=== PATIENT | female | born 1945 | race Caucasian/White ===

== ENCOUNTER 2016-09-16 12:50 | Inpatient (IN) | payer MEDICARE, MEDICAID ==
[~2016-09-16] VITALS: Ht 162.6 cm; Wt 86.6 kg
[~2016-09-16 12:50] MED LIST: DIVA500T2 PO; DOCU-170 PO; FOLI1TAB16 PO; LORA1TAB PO; MAGN400O6 PO; MULT-24 PO; NA P133E RC; OLAN10TA3 PO; PANT40TA4 PO; RAME8TAB9 PO; TYL2T PO
[2016-09-16 13:32] LABS: BASOPHILS % (AUTO) 0.4 % (0.0-2.0); EOSINOPHILS # (AUTO) 0.4 /CMM (0.0-0.7); EOSINOPHILS % (AUTO) 5.5 % (0.0-6.0); HEMATOCRIT 26 % (33-45); LYMPHOCYTES # (AUTO) 1.1 /CMM (0.8-4.8); LYMPHOCYTES % (AUTO) 16.8 % (20.0-44.0); MEAN CORPUSCULAR HEMOGLOBIN 23 PG (26.0-33.0); MEAN CORPUSCULAR HGB CONC 30 g/dl (31.0-36.0); MEAN CORPUSCULAR VOLUME 75 fL (82-100); MONOCYTES # (AUTO) 0.8 /CMM (0.1-1.30); MONOCYTES % (AUTO) 12.7 % (2.0-12.0); NEUTROPHILS # (AUTO) 4.2 /CMM (1.8-8.9); NEUTROPHILS % (AUTO) 64.6 % (43.0-81.0); PLATELET COUNT (AUTO) 373 /CMM (150-450); RDW COEFFICIENT OF VARIATION 16.4 (11.5-15.0); RED BLOOD CELL COUNT(AUTO) 3.51 MIL/uL (4.0-5.2); WHITE BLOOD COUNT (AUTO) 6.5 K/uL (4.3-11.0)
[2016-09-16 13:39] LABS: CARBON DIOXIDE 28 mmol/L (21-32); CHLORIDE 105 mmol/L (98-107); GFR 55 mL/min (>60); GLUCOSE 113 mg/dL (74-106); POTASSIUM 4.3 mmol/L (3.5-5.1); SODIUM SERUM 140 mmol/L (136-145); UREA NITROGEN, BLOOD 15 mg/dL (7-18)
[2016-09-16 13:52] LABS: ACETAMINOPHEN 0 ug/ml (10-30); ALANINE AMINOTRANSFERASE 11 U/L (12-78); ALBUMIN 2.6 g/dL (3.4-5.0); ALCOHOL, BLOOD < 3 mg/dL (0-0); ALKALINE PHOSPHATASE 84 U/L (46-116); ASPARTATE AMINOTRANSFERASE 11 U/L (15-37); BILIRUBIN,TOTAL 0.1 mg/dL (0.2-1.0); SALICYLATE 1.3 mg/dL (2.8-20.0); TOTAL PROTEIN, SERUM 6.9 g/dL (6.4-8.2)
[2016-09-16] MEDS ORDERED: CALC-883 PO (14:16)
[2016-09-16] MEDS ORDERED: METO25TA6 PO (14:16)
[2016-09-16] MEDS ORDERED: CLON0.5T PO (14:16)
[2016-09-16] MEDS ORDERED: MULT-213 PO (14:16)
[2016-09-16] MEDS ORDERED: AMIN30LI2 PO (14:16)
[2016-09-16] MEDS ORDERED: MELA3TAB PO (14:16)
[2016-09-16 15:33] LABS: APPEARANCE,URINE Slightly Cloudy (CLEAR); BILIRUBIN,URINE Negative (NEGATIVE); BLOOD, URINE Moderate Ery/uL (NEGATIVE); COLOR,URINE Yellow (YELLOW); KETONES,URINE Negative (NEGATIVE); LEUKOCYTE ESTERASE ,URINE Small (NEGATIVE); NITRITE, URINE Negative (NEGATIVE); PROTEIN,URINE Negative (NEGATIVE); UGLUCOSE Negative (NEGATIVE); UROBILINOGEN,URINE 0.2 EU/dL (0.2)
[2016-09-16 15:43] LABS: ADD URINE CULTURE NO; BACTERIA,URINE Few /HPF (None Seen); SQUAMOUS EPITHELIAL CELL,UR Few /HPF (None Seen)
[2016-09-16 15:50] LABS: CANNABINOID, URINE NEGATIVE (NEGATIVE); PHENCYCLIDINE SCREEN,URINE NEGATIVE (NEGATIVE)
[2016-09-16] MEDS ORDERED: ACETAMINOPHEN 325 MG TABLET PO PRN ×2 (16:30→17:30)
[2016-09-16 16:36] VITALS: BP 127/61
[2016-09-16] MEDS ORDERED: MAGNESIUM HYDROXIDE 30 ML UDC PO PRN (17:30)
[2016-09-16] MEDS ORDERED: TEMAZEPAM 7.5 MG CAPSULE PO PRN (17:30)
[2016-09-16] MEDS ORDERED: MAG HYDROX/AL HYDROX/SIMETH 30 ML UDC PO PRN (17:30)
[2016-09-16] MEDS ORDERED: LORAZEPAM 0.5 MG TABLET PO PRN (17:30)
[2016-09-16 20:00] VITALS: BP 126/61
[2016-09-16] MEDS: DOCUSATE SODIUM 100 MG CAPSULE PO SCH (20:38)
[2016-09-16] MEDS: METOPROLOL TARTRATE 25 MG TABLET PO SCH (20:39)
[2016-09-17 03:55] VITALS: BP 126/61
[2016-09-17] MEDS ORDERED: PANTOPRAZOLE 40 MG TABLET.DR PO SCH (07:30)
[2016-09-17 08:00] VITALS: BP 105/48
[2016-09-17] MEDS: METOPROLOL TARTRATE 25 MG TABLET PO SCH (08:00)
[2016-09-17] MEDS: DOCUSATE SODIUM 100 MG CAPSULE PO SCH (08:01)
[2016-09-17] MEDS ORDERED: CALCIUM CARB 600MG /VIT D 1 EACH TABLET PO SCH (09:00)
[2016-09-17] MEDS ORDERED: FOLIC ACID 1 MG TABLET PO SCH (09:00)
[2016-09-17] MEDS ORDERED: MULTIVITAMINS,THERAPEUTIC 1 UDTAB TABLET PO SCH (09:00)
[2016-09-17] MEDS ORDERED: LORA-258 PO (11:25)
[2016-09-17] MEDS ORDERED: TEMA7.5C PO (11:25)
== END 2016-09-17 10:27 | disposition short-term general hospital (02) | DRG 885 ==
LOC: ER 12:57 → GPS 15:24
PROVIDERS: ADMIT Psychiatry & Neurology Psychiatry
DX: F20.0 Paranoid schizophrenia (principal); K21.9 Gastro-esophageal reflux disease without esophagitis; F03.90 Unspecified dementia, unspecified severity, without behavioral disturbance, psychotic disturbance, mood disturbance, and anxiety; Z73.6 Limitation of activities due to disability; D50.9 Iron deficiency anemia, unspecified
CPT/HCPCS: 36415; 71010-TC; 80048-TC; 80076-TC; 80305; 81000-TC; 85025-TC; 86850-TC; 87081-TC; 88305-TC; 88313-TC; 88342; A4606; G0480; G6039-TC; J2704; J3490; Z7610

== ENCOUNTER 2016-09-17 10:34 | Inpatient (IN) | payer MEDICARE, MEDICAID ==
[~2016-09-17] VITALS: Ht 162.6 cm; Wt 86.6 kg
[~2016-09-17 10:34] MED LIST changes: +AMIN30LI2 PO; +CALC-883 PO; +CLON0.5T PO; -DIVA500T2 PO; -LORA1TAB PO; -MAGN400O6 PO; +MELA3TAB PO; +METO25TA6 PO; +MULT-213 PO; -MULT-24 PO; -NA P133E RC; -RAME8TAB9 PO
--- NOTE | 2016-09-17 11:10 | NUR ---
m/s bond broker: admission admitted this pt from gps unit with dx: anemia and pt schedule for egd this afternoon per report. pt awake, a/ox3, able to make needs known. pt has no family member and pt aware that she is having a procedure today as stated. pt has been npo since midnight per report. kept pt npo. oriented to room and surroundings. pt on 5150. on 1:1 sitter. pt is able ambulate without difficulty. awaiting order from dr. vanegas. will continue to monitor.
[2016-09-17 11:19] LABS: HEMATOCRIT 26 % (33-45); HEMOGLOBIN 7.8 g/dL (11.5-14.8); LYMPHOCYTES % (AUTO) 15.3 % (20.0-44.0); MEAN CORPUSCULAR HEMOGLOBIN 23 PG (26.0-33.0); MEAN CORPUSCULAR HGB CONC 30 g/dl (31.0-36.0); MEAN CORPUSCULAR VOLUME 76 fL (82-100); NEUTROPHILS % (AUTO) 69.4 % (43.0-81.0); PLATELET COUNT (AUTO) 352 /CMM (150-450); RDW COEFFICIENT OF VARIATION 17.4 (11.5-15.0); RED BLOOD CELL COUNT(AUTO) 3.37 MIL/uL (4.0-5.2); WHITE BLOOD COUNT (AUTO) 6.1 K/uL (4.3-11.0)
[2016-09-17 11:20] LABS: BASOPHILS % (AUTO) 0.5 % (0.0-2.0); EOSINOPHILS # (AUTO) 0.3 /CMM (0.0-0.7); LYMPHOCYTES # (AUTO) 0.9 /CMM (0.8-4.8); MONOCYTES # (AUTO) 0.6 /CMM (0.1-1.30); MONOCYTES % (AUTO) 9.8 % (2.0-12.0); NEUTROPHILS # (AUTO) 4.3 /CMM (1.8-8.9)
--- NOTE | 2016-09-17 11:20 | NUR ---
m/s intelligence operations specialist: notes dr. vanegas (gi) notified and made aware re: admission for egd this afternoon with order to keep her npo and consent for egd. orders read back and carried out and acknowledged. left message to dr. belle re: admission via exchange. pt has been npo since midnight at gps unit and per report by scarlett (intelligence operations specialist). will continue to monitor.
[2016-09-17 11:22] LABS: CALCIUM, SERUM 8.4 mg/dL (8.5-10.1); POTASSIUM 4.3 mmol/L (3.5-5.1)
[2016-09-17 11:23] LABS: ALBUMIN 2.5 g/dL (3.4-5.0); BILIRUBIN,TOTAL 0.2 mg/dL (0.2-1.0); CREATININE 0.9 mg/dL (0.6-1.3); TOTAL PROTEIN, SERUM 6.8 g/dL (6.4-8.2)
[2016-09-17] MEDS ORDERED: TEMA7.5C PO (11:25)
[2016-09-17] MEDS ORDERED: LORA-258 PO (11:25)
--- NOTE | 2016-09-17 11:25 | NUR ---
m/s flame annealing machine operator: notes consent obtained from pt on egd procedure, anesthesia, and blood transfusion consent. will continue to monitor.
[2016-09-17 11:30] VITALS: BP 90/54
--- NOTE | 2016-09-17 12:15 | NUR ---
m/s clam dredger: notes dr. zavala (anesthesiologist) at bedside and informed md that pt is refusing iv insertion. dr. canales interviewed pt and educated on anesthesia. dr. zavala inserted iv to left hand, gauge #22, maddie. well. also ordered stat ekg. order carried out and acknowledged. kevin (jose martin) notified of new order.
--- NOTE | 2016-09-17 12:30 | NUR ---
m/s chiropractor assistant: notes pt taken to o.r. at this time via bed accompanied by o.r. staff and dr. zavala.
[2016-09-17] MEDS ORDERED: PEG 3350/NA SULF,BICARB,CL/KCL 4,000 ML BOTTLE PO ONE (13:10)
--- NOTE | 2016-09-17 13:15 | NUR ---
m/s icing coater: notes received pt from recovery room via own bed with iv fluids of ns infusing via bolus. pt awake, appears comfortable. still awaiting for dr. belle to see pt. no c/o n/v or any discomfort at this time. vss. will continue to monitor. Addendum: 09/17/16 at 1419 by KIMBERLY POLLOCK OLIVE BRINE TESTER normal egd per report from recovery nurse and Bx taken to r/o h pylori by dr. vanegas
[2016-09-17 13:20] VITALS: BP 136/62
--- NOTE | 2016-09-17 13:30 | NUR ---
m/s personnel analyst: notes left another message to dr. Geronimo re: new admission via epic exchange.
--- NOTE | 2016-09-17 13:52 | NUR ---
m/s electronics instructor: notes spoke to dr. vanegas and verify with md if he is going to do a colonoscopy today, stated, "i'll do it tomorrow, i ordered a prep." also received verbal order for clear liquid diet and consent for colonoscopy. order carried out and acknowledged.
--- NOTE | 2016-09-17 14:01 | NUR ---
m/s meat loiner: notes started pt on golytely 10 oz at this time and will resume every 15min until clear per order. pt verbalized understanding. also informed pt that she going to have a colonoscopy tomorrow with dr. vanegas. obtained consent from pt and aware that she is going to have a procedure tomorrow. continue on 1:1 sitter. will continue to monitor.
--- NOTE | 2016-09-17 14:16 | NUR ---
m/s plastics heat welder: notes 10 oz of golytely given to pt, maddie. well. will monitor.
--- NOTE | 2016-09-17 14:31 | NUR ---
m/s paper winder: notes #3 10 oz of golytely given, maddie. well. pt still hasn't gone to the bathroom. will continue to monitor.
--- NOTE | 2016-09-17 14:46 | NUR ---
m/s service and repair supervisor: notes 10 oz of golytely #4 given at this time. pt monitored closely. will monitor.
--- NOTE | 2016-09-17 15:01 | NUR ---
m/s software support analyst: notes 10 oz of golytely #5 given as ordered, maddie. well. will continue to monitor.
--- NOTE | 2016-09-17 15:10 | NUR ---
m/s straddle carrier operator: notes pt had a bowel movement at this time. will monitor.
--- NOTE | 2016-09-17 15:16 | NUR ---
m/s digital marketing program manager: notes 10 oz of golytely #6 given as ordered, maddie. well. will continue to monitor.
--- NOTE | 2016-09-17 15:31 | NUR ---
m/s evp business development: notes pt had an incontinent of bowel episode. underwear depends got soiled and thrown out. kept clean and dry good pericare rendered. noted with particles, pt not clear. pt wants to rest a bit and refused to drink golytely at this time. will continue to monitor.
--- NOTE | 2016-09-17 16:00 | NUR ---
m/s cargo surveyor: notes pt still wants to rest at this time. will continue to monitor.
[2016-09-17 16:29] VITALS: BP 108/61
--- NOTE | 2016-09-17 16:30 | NUR ---
m/s lead sprinkler: notes offered golytely, pt able to drink 5 oz and will drink the rest later as stated despite drink mix with cranberry juice, pt feels something on her tummy as stated, but cannot give description. will continue to monitor.
--- NOTE | 2016-09-17 16:40 | NUR ---
m/s retail beauty specialist: notes right nostril mrsa suirvellance collected. called lab to pickle pumper specimen, spoke to mary.
--- NOTE | 2016-09-17 17:00 | NUR ---
m/s resident inspector: notes pt completed the other 5 oz for #7 of golytely. bowel movement getting clear, but still has some particles. will continue to monitor.
--- NOTE | 2016-09-17 17:15 | NUR ---
m/s information management officer: psych consult seen and interviewed by dr. barragan at this time.
--- NOTE | 2016-09-17 17:38 | NUR ---
m/s installation helper: notes 10 oz of golytely #8 given as ordered. will continue to monitor. pt still with little particles, but getting clearer with yellow colored stool. will continue to monitor.
--- NOTE | 2016-09-17 17:47 | NUR ---
m/s automation tester: notes clear liquid diet served at this time.
--- NOTE | 2016-09-17 18:30 | NUR ---
m/s coffee farmer: notes 10 oz of golytely #9 given as ordered, maddie. well. will continue to monitor. noted with no particles at this time. continue on 1:1 due to 72 hour hold. will continue to monitor.
--- NOTE | 2016-09-17 18:45 | NUR ---
m/s carroting machine offbearer: m/s carroting machine offbearer: notes 10 oz of golytely #10 given as ordered, maddie. well. will continue to monitor.
--- NOTE | 2016-09-17 19:10 | NUR ---
MS/RN NOTES RECEIVED PT. LYING IN BED RESTING. PT. IS EASILY AROUSABLE. AWAKE, ALERT AND ORIENTED X2-3. BREATHING EVEN AND UNLABORED ON ROOM AIR. NO SOB, RESPIRATORY DISTRESS OR COMPLAINTS OF PAIN NOTED AT THIS TIME. PT. WITH LEFT HAND 22 GAUGE IV SALINE LOCK. PT. REMAINS ON CLEAR LIQUID DIET. PER DAYSHIFT NURSE PT. IS SCHEDULED FOR COLONOSCOPY TOMORROW WITH DR. RODRIGUES. PT. IS DRINKING GOLYTELY. PT. IS ON CUP #11 OF 10 OZ GOLYTELY. WILL CONTINUE TO ADMINISTER TO PT. GOLYTELY AND MONITOR PT. FECES FOR PARTICLES. PT. WITH SITTER PRESENT AT BEDSIDE, PT. IS ON 72 HOUR HOLD THAT EXPIRES ON 09/19/16. BED IN LOWEST POSITION, CALL LIGHT WITHIN REACH, WILL CONTINUE TO MONITOR.
[2016-09-17 20:00] VITALS: BP 124/65
[2016-09-17] MEDS: DOCUSATE SODIUM 100 MG CAPSULE PO SCH (21:00)
[2016-09-17] MEDS: METOPROLOL TARTRATE 25 MG TABLET PO SCH (21:00)
[2016-09-17] MEDS: DIVALPROEX SODIUM 500 MG TABLET.DR PO SCH (23:39)
[2016-09-17] MEDS: OLANZAPINE 5 MG/TAB.RAPDIS PO SCH (23:39)
[2016-09-18 06:44] LABS: BASOPHILS % (AUTO) 0.5 % (0.0-2.0); EOSINOPHILS # (AUTO) 0.3 /CMM (0.0-0.7); EOSINOPHILS % (AUTO) 3.9 % (0.0-6.0); HEMATOCRIT 25 % (33-45); HEMOGLOBIN 7.9 g/dL (11.5-14.8); LYMPHOCYTES % (AUTO) 14.1 % (20.0-44.0); MEAN CORPUSCULAR HEMOGLOBIN 24 PG (26.0-33.0); MEAN CORPUSCULAR HGB CONC 31 g/dl (31.0-36.0); MEAN CORPUSCULAR VOLUME 76 fL (82-100); MONOCYTES # (AUTO) 0.8 /CMM (0.1-1.30); MONOCYTES % (AUTO) 10.6 % (2.0-12.0); NEUTROPHILS # (AUTO) 5.3 /CMM (1.8-8.9); NEUTROPHILS % (AUTO) 70.9 % (43.0-81.0); PLATELET COUNT (AUTO) 362 /CMM (150-450); RDW COEFFICIENT OF VARIATION 17.3 (11.5-15.0); RED BLOOD CELL COUNT(AUTO) 3.33 MIL/uL (4.0-5.2); WHITE BLOOD COUNT (AUTO) 7.4 K/uL (4.3-11.0)
--- NOTE | 2016-09-18 07:05 | NUR ---
MS/RN NOTES PT. LYING IN BED RESTING. BREATHING EVEN AND UNLABORED ON ROOM AIR. NO SOB, RESPIRATORY DISTRESS OR COMPLAINTS OF PAIN NOTED AT THIS TIME AND THROUGHOUT SHIFT. PT. WITH LEFT HAND 22 GAUGE IV SALINE LOCK. PT. REMAINS ON CLEAR LIQUID DIET. PT. STOOL CLEAR WITH NO PARTICLES NOTED. PT. IS SCHEDULED FOR COLONOSCOPY TODAY WITH DR. RODRIGUES. PT. WITH SITTER PRESENT AT BEDSIDE, PT. IS ON 72 HOUR HOLD THAT EXPIRES ON 09/19/16. ALL PT. NEEDS MET. BED IN LOWEST POSITION, CALL LIGHT WITHIN REACH, WILL ENDORSE TO DAYSHIFT NURSE FOR CONTINUITY OF CARE.
[2016-09-18 07:17] LABS: CALCIUM, SERUM 8.2 mg/dL (8.5-10.1); POTASSIUM 4.1 mmol/L (3.5-5.1)
[2016-09-18 07:21] LABS: THYROID STIMULATING HORMONE 1.909 uIU/mL (0.358-3.74)
[2016-09-18] MEDS: PANTOPRAZOLE 40 MG TABLET.DR PO SCH (07:30)
--- NOTE | 2016-09-18 07:45 | NUR ---
MS/RN Patient received Patient received from retail wireless sales consultant. Appears comfortable, in no distress, calm and cooperative at this time. Remains on hold which expirs 09/19.
[2016-09-18 08:00] VITALS: BP 115/70
[2016-09-18] MEDS: FOLIC ACID 1 MG TABLET PO SCH (08:30)
[2016-09-18] MEDS: METOPROLOL TARTRATE 25 MG TABLET PO SCH ×2 (08:30→21:12)
[2016-09-18] MEDS: DIVALPROEX SODIUM 500 MG TABLET.DR PO SCH ×2 (08:30→21:12)
[2016-09-18] MEDS: DOCUSATE SODIUM 100 MG CAPSULE PO SCH ×2 (08:30→21:12)
[2016-09-18] MEDS: OLANZAPINE 5 MG/TAB.RAPDIS PO SCH ×2 (08:31→21:12)
--- NOTE | 2016-09-18 12:00 | NUR ---
MS/RN S/B Dr Mcnally Seen by Dr Mcnally - patient is scheduled for colonoscopy this afternoon.
--- NOTE | 2016-09-18 12:26 | NUR ---
MS/RN Heplock removed Patient able to pull out heplock despite having one to one sitter. Refusing to have IV access reinserted.
--- NOTE | 2016-09-18 14:46 | NUR ---
MS/RN Back from GI Lab Patient back from GI lab, vital signs stable, can eat and drink.
--- NOTE | 2016-09-18 17:30 | NUR ---
MS/RN Diet Tolerating regular diet, no nausea or vomiting.
[2016-09-18] MEDS: MESALAMINE 400 MG CAP PO SCH (17:35)
--- NOTE | 2016-09-18 19:30 | NUR ---
RN NOTE; RECEIVED PT IN BED W/ SITTER AT THE BED SIDE, BREATHING EVENLY. NO SOB. NO DISTRESS .S KIN WARM AND DRY. NO C/O PAIN OR DISCOMFORT. WILL CONT TO MONITOR
--- NOTE | 2016-09-18 19:38 | NUR ---
MS/RN End note No behavior concerns during shift, has remained calm and cooperative, compliant with medications. No signs of any active bleeding. Will continue to monitor and endorse to rn night.
[2016-09-18 20:00] VITALS: BP 113/66
--- NOTE | 2016-09-19 06:27 | NUR ---
RN NOTE, PT IN BED W/ SITTER T=AT THE BED SIDE. BREATHING EVENLY. NO C./O PAIN OR DISCOMFORT. NO S/S OF ABNORMAL BLEEDING. NO ACUTE CHANGE DURING MINERAL WOOL INSULATION SUPERVISOR. NO BEHAVIORAL ISSUES . NEEDS ATTENDED. ASSISTED W/ ADLS . CLEANED AD DRIED. CALL LIGHT WITHIN REACH, WILL CONT TO MONITOR AND WILL ENDORSE TO AM SHIFT FOR LIANA.
[2016-09-19 07:33] VITALS: BP 92/60
--- NOTE | 2016-09-19 08:00 | NUR ---
MS RN NOTES PATIENT IN BED RESTING NO SOB OR ACUTE DISTRESS NOTED. DENIES ANY PAIN OR DISCOMFORT. BED IN LOW LOCKED POSITION, CALL LIGHT WITHIN REACH. SITTER AT BEDSIDE. WILL CONTINUE TO MONITOR.
[2016-09-19] MEDS: OLANZAPINE 5 MG/TAB.RAPDIS PO SCH ×2 (08:33→21:16)
[2016-09-19] MEDS: MESALAMINE 400 MG CAP PO SCH ×3 (08:33→16:51)
[2016-09-19] MEDS: DOCUSATE SODIUM 100 MG CAPSULE PO SCH ×2 (08:33→21:11)
[2016-09-19] MEDS: METOPROLOL TARTRATE 25 MG TABLET PO SCH ×2 (08:34→21:00)
[2016-09-19] MEDS: DIVALPROEX SODIUM 500 MG TABLET.DR PO SCH ×2 (08:34→21:12)
[2016-09-19] MEDS: PANTOPRAZOLE 40 MG TABLET.DR PO SCH (08:34)
[2016-09-19] MEDS: FOLIC ACID 1 MG TABLET PO SCH (08:34)
--- NOTE | 2016-09-19 13:00 | NUR ---
MS RN NOTES PATIENT SEEN AND EVALUATED BY DR. LUNA ORDERS NOTED AND CARRIED OUT.
[2016-09-19] MEDS: LORAZEPAM 0.5 MG TABLET PO PRN (13:26)
[2016-09-19] MEDS ORDERED: SOD FERRIC GLUC 125 MG in IV NS 0.9% 100 ML IV SCH (14:00)
[2016-09-19] MEDS ORDERED: SECONDARY IV SET 1 EA INFUS.SET MC ONE (14:40)
[2016-09-19] MEDS: SOD FERRIC GLUC 125 MG in IV NS 0.9% 100 ML IV SCH (14:56)
[2016-09-19 19:00] VITALS: BP 105/52
--- NOTE | 2016-09-19 19:02 | NUR ---
MS RN NOTES PATIENT IN BED RESTING NO SOB OR ACUTE DISTRESS NOTED. DENIES ANY PAIN OR DISCOMFORT. ALL DUE MEDICATIONS GIVEN ALL NEEDS MET. WILL ENDORSE TO PM SHIFT LIANA.
--- NOTE | 2016-09-19 19:30 | NUR ---
RN NOTE; RECEIVED PT IN BED RESTING. BREATHING EVENLY. NO SOB, NO C/O PAIN OR DISCOMFORT. BED LOW LOCKED . CALL LIGHT WITHIN REACH. WILL CONT TO MONITOR
[2016-09-19 20:00] VITALS: BP 105/52
[2016-09-19] MEDS: TEMAZEPAM 7.5 MG CAPSULE PO PRN (21:11)
--- NOTE | 2016-09-19 21:12 | NUR ---
Restoril given per pt's request to fall sleep. calm, quiet and comfortable environment was provided for the pt . will cont to monitor
--- NOTE | 2016-09-19 21:20 | NUR ---
METOPROLOL WAS HELD FOR SBP<100. WILL CONT TO MONITOR
[2016-09-20] MEDS: LORAZEPAM 0.5 MG TABLET PO PRN ×3 (00:52→16:57)
--- NOTE | 2016-09-20 00:53 | NUR ---
Ativan given as ordered for anxiety and agitation. unable to sleep and constantly getting out of bed, walking around. will cont to monitor
--- NOTE | 2016-09-20 06:34 | NUR ---
RN NOTE; PT IN BED SLEEPING AROUSES EASILY. RR EVEN AND UNLABORED. NO DISTRESS . WAS ABLE TO HAVE A GOOD SLEEP AFTER TAKING THE ATIVAN AND SOME SNACKS. DENIED ANY PAIN OR DISCOMFORT. NEEDS ATTENDED. BED LOW LOCKED .SRX2. CALL LIGHT WITHIN REACH. WILL CONT TO MONITOR AND WILL ENDORSE TO AM SHIFT FOR LIANA.
[2016-09-20 07:20] LABS: BASOPHILS % (AUTO) 0.4 % (0.0-2.0); EOSINOPHILS # (AUTO) 0.3 /CMM (0.0-0.7); EOSINOPHILS % (AUTO) 4.8 % (0.0-6.0); HEMATOCRIT 25 % (33-45); HEMOGLOBIN 7.6 g/dL (11.5-14.8); LYMPHOCYTES # (AUTO) 1.4 /CMM (0.8-4.8); LYMPHOCYTES % (AUTO) 22.6 % (20.0-44.0); MEAN CORPUSCULAR HEMOGLOBIN 23 PG (26.0-33.0); MEAN CORPUSCULAR HGB CONC 31 g/dl (31.0-36.0); MEAN CORPUSCULAR VOLUME 75 fL (82-100); MONOCYTES # (AUTO) 0.7 /CMM (0.1-1.30); MONOCYTES % (AUTO) 11.6 % (2.0-12.0); NEUTROPHILS # (AUTO) 3.6 /CMM (1.8-8.9); NEUTROPHILS % (AUTO) 60.6 % (43.0-81.0); PLATELET COUNT (AUTO) 371 /CMM (150-450); RDW COEFFICIENT OF VARIATION 17.3 (11.5-15.0); RED BLOOD CELL COUNT(AUTO) 3.31 MIL/uL (4.0-5.2)
[2016-09-20 08:00] VITALS: BP 102/52
--- NOTE | 2016-09-20 08:00 | NUR ---
MS RN NOTES PATIENT IN BED RESTING NO SOB OR ACUTE DISTRESS NOTED. IV INTACT PATENT. BED IN LOW LOCKED POSITION. CALL LIGHT WITHIN REACH WILL CONTINUE TO MONITOR.
[2016-09-20] MEDS: MESALAMINE 400 MG CAP PO SCH ×3 (08:25→16:58)
[2016-09-20] MEDS: DIVALPROEX SODIUM 500 MG TABLET.DR PO SCH ×2 (08:26→20:39)
[2016-09-20] MEDS: FOLIC ACID 1 MG TABLET PO SCH (08:26)
[2016-09-20] MEDS: PANTOPRAZOLE 40 MG TABLET.DR PO SCH (08:26)
[2016-09-20] MEDS: OLANZAPINE 5 MG/TAB.RAPDIS PO SCH ×2 (08:26→20:40)
[2016-09-20] MEDS: DOCUSATE SODIUM 100 MG CAPSULE PO SCH ×3 (08:26→20:39)
[2016-09-20] MEDS: METOPROLOL TARTRATE 25 MG TABLET PO SCH ×2 (08:28→20:40)
[2016-09-20] MEDS: SOD FERRIC GLUC 125 MG in IV NS 0.9% 100 ML IV SCH (13:22)
--- NOTE | 2016-09-20 14:00 | NUR ---
MS RN NOTES PATIENT SEEN AND EVALUATED BY MARY TRANSMITTER SUPERVISOR ORDERS NOTED AND CARRIED OUT.
[2016-09-20 16:00] VITALS: BP 139/73
[2016-09-20] MEDS ORDERED: FOLIC ACID 1 MG TABLET PO SCH (17:00)
[2016-09-20] MEDS ORDERED: CYANOCOBALAMIN 1,000 MCG/ML VIAL SQ ONE (17:00)
--- NOTE | 2016-09-20 19:21 | NUR ---
MS RN NOTES PATIENT IN BED RESTING NO SOB OR ACUTE DISTRESS NOTED. PATIENT NOTED TO BE CONFUSED PER HER BASELINE. ALL DUE MEDICATIONS GIVEN. ALL NEEDS MET. WILL ENDORSE TO PM SHIFT LIANA.
--- NOTE | 2016-09-20 19:30 | NUR ---
MS RN NOTE RECEIVED PATIENT FROM DAY SHIFT, PATIENT IS ALERT AND ORIENTEDX2, LOOKS LITTLE CONFUSED, BUT NO S/S OF RESPIRATORY DISTRESS AND DENIES PAIN AT THIS TIME. RIGHT HAND IV IS PATENT AND INTACT, HL ONLY. SRX2, BED IN LOW POSITION, CALL LIGHT WITHIN REACH, WILL CONTINUE TO MONITOR PATIENT.
[2016-09-20 20:00] VITALS: BP 108/52
[2016-09-21] VITALS (7 sets, daily range): BP systolic 109–125; BP diastolic 47–85
[2016-09-21] MEDS: TEMAZEPAM 7.5 MG CAPSULE PO PRN (01:22)
--- NOTE | 2016-09-21 01:25 | NUR ---
MS RN NOTE PATIENT IS WALKING OUT OF HER ROOM STATING I WANT TO TAKE MED FOR SLEEP. RESTORIL PO GIVEN. WILL MONITOR FOR EFFECTIVENESS.
--- NOTE | 2016-09-21 06:58 | NUR ---
MS RN NOTE PATIENT IS SLEEPING IN BED COMFORTABLY, NO S/S OF RESPIRATORY DISTRESS OR PAIN AT THIS TIME. IV ON RIGHT HAND IS PATENT AND INTACT, HL ONLY. WILL ENDORSE TO DAY SHIFT NURSE FOR LIANA.
[2016-09-21 07:00] LABS: BASOPHILS % (AUTO) 0.4 % (0.0-2.0); CREATININE 1.1 mg/dL (0.6-1.3); EOSINOPHILS # (AUTO) 0.3 /CMM (0.0-0.7); EOSINOPHILS % (AUTO) 5.5 % (0.0-6.0); HEMATOCRIT 24 % (33-45); HEMOGLOBIN 7.1 g/dL (11.5-14.8); LYMPHOCYTES # (AUTO) 1.5 /CMM (0.8-4.8); LYMPHOCYTES % (AUTO) 24.3 % (20.0-44.0); MAGNESIUM 1.6 mg/dL (1.8-2.4); MEAN CORPUSCULAR HEMOGLOBIN 23 PG (26.0-33.0); MEAN CORPUSCULAR HGB CONC 30 g/dl (31.0-36.0); MEAN CORPUSCULAR VOLUME 75 fL (82-100); MONOCYTES # (AUTO) 0.5 /CMM (0.1-1.30); MONOCYTES % (AUTO) 8.5 % (2.0-12.0); NEUTROPHILS # (AUTO) 3.7 /CMM (1.8-8.9); NEUTROPHILS % (AUTO) 61.3 % (43.0-81.0); PHOSPHORUS 3.9 mg/dL (2.5-4.9); PLATELET COUNT (AUTO) 354 /CMM (150-450); POTASSIUM 3.6 mmol/L (3.5-5.1); RDW COEFFICIENT OF VARIATION 17.1 (11.5-15.0); RED BLOOD CELL COUNT(AUTO) 3.11 MIL/uL (4.0-5.2)
--- NOTE | 2016-09-21 07:15 | NUR ---
MS RN INITIAL NOTES RECEIVED PATIENT IN BED, SLEEPING, AROUSES EASILY. BREATHING EVEN AND NON LABORED, ON ROOM AIR, NO SOB NOTED. APPEARS COMFORTABLE, NO C/O PAIN AT THIS TIME. CALL LIGHT WITHIN REACH. WILL CONT TO MONITOR.
[2016-09-21] MEDS: DIVALPROEX SODIUM 500 MG TABLET.DR PO SCH ×2 (08:28→21:49)
[2016-09-21] MEDS: MESALAMINE 400 MG CAP PO SCH ×3 (08:28→16:51)
[2016-09-21] MEDS: DOCUSATE SODIUM 100 MG CAPSULE PO SCH ×2 (08:28→21:49)
[2016-09-21] MEDS: PANTOPRAZOLE 40 MG TABLET.DR PO SCH (08:29)
[2016-09-21] MEDS: METOPROLOL TARTRATE 25 MG TABLET PO SCH ×2 (08:29→21:54)
[2016-09-21] MEDS: FOLIC ACID 1 MG TABLET PO SCH (08:29)
--- NOTE | 2016-09-21 08:30 | NUR ---
PATIENT IS AWAKE, A/O X1-2. SITTING UP IN BED, EATING HER BREAKFAST. NOTED IV IN RIGHT HAND DISLODGED, NO BLEEDING IN IV SITE. WHEN ASKED PATIENT HOW IT HAPPENED, STATED " I DON'T KNOW, I AM SLEEP". PATIENT APPEARS ANXIOUS, NO AGITATION. DUE MEDS GIVEN. KEPT COMFORTABLE. BED LOW AND LOCKED, SIDE RAILS UP X2. WILL CONT TO MONITOR.
[2016-09-21] MEDS: OLANZAPINE 5 MG/TAB.RAPDIS PO SCH ×2 (08:31→21:49)
--- NOTE | 2016-09-21 09:00 | NUR ---
LOW HEMOGLOBIN 7.1 PATIENT NOT IN DISTRESS, SKIN FACIAL COLOR APPEARS PALE. NO SOB NOTED, V/S REMAIN STABLE. NO ACTIVE BLEEDING NOTED. INFORMED SOLUTIONS SPECIALIST-CALI, PER SOLUTIONS SPECIALIST SHE WILL COME AND SEE THE PATIENT.
[2016-09-21] MEDS ORDERED: IV SET PRIMARY PUMP SET 1 EA INFUS.SET MC ONE (10:49)
[2016-09-21] MEDS: Magnesium 1GM/D5W 100ML PREMIX 100 ML IV SCH ×2 (10:55→12:04)
--- NOTE | 2016-09-21 13:10 | NUR ---
PATIENT IS SEEN BY SELVIN -CALI TODAY, ORDERED TO GIVE 1 UNIT PRBC TO PATIENT. NOTED AND ACKNOWLEDGED.
--- NOTE | 2016-09-21 13:52 | NUR ---
UNABLE TO GET CONSENT FOR BLOOD TRANSFUSION, PATIENT REFUSING. EXPLAINED IMPORTANCE, RISK AND BENEFITS OF BLOOD TRANSFUSION, PATIENT STILL REFUSED. CALLED BLOOD BANK, BLOOD NOT AVAILABLE AT THIS TIME. WILL TRY TO ENCOURAGE PATIENT.
[2016-09-21] MEDS: SOD FERRIC GLUC 125 MG in IV NS 0.9% 100 ML IV SCH (14:00)
[2016-09-21] MEDS ORDERED: IV NS 0.9% 250 ML IV ONE (16:29)
[2016-09-21] MEDS ORDERED: BLOOD IV SET 1 EA INFUS.SET MC ONE (16:29)
--- NOTE | 2016-09-21 16:29 | NUR ---
OBTAINED CONSENT FROM PATIENT, AFTER EXPLANATION OF THE RISK, BENEFITS OF BLOOD TRANSFUSION, PATIENT VERBALIZED UNDERSTANDING AND SIGNED THE CONSENT.
[2016-09-21] MEDS: LORAZEPAM 0.5 MG TABLET PO PRN (16:52)
--- NOTE | 2016-09-21 16:53 | NUR ---
PATIENT APPEARS ANXIOUS, AND WALKING IN AND OUT OF HER ROOM CONTINUOUSLY. NO SOB NOTED. NO C/O PAIN. GIVEN ATIVAN 0.5MG PO PRN, WILL REASSESS.
--- NOTE | 2016-09-21 17:37 | NUR ---
PATIENT IN BED, APPEARS CALM AND RELAXED. V/S TAKEN AND RECORDED. PRBC 1 UNIT BAG STARTED. WILL MONITOR PATIENT CLOSELY.
--- NOTE | 2016-09-21 17:55 | NUR ---
PATIENT IN BED, V/S REMAINS STABLE, DENIES CHEST PAIN. NO S/S OF BLEEDING. AFEBRILE. NO C/O PAIN OR ANY DISCOMFORT. WILL CONT TO MONITOR PATIENT CLOSELY.
--- NOTE | 2016-09-21 19:30 | NUR ---
MS RN OPENING NOTES: PATIENT IN BED, AOX1, APPEARS CONFUSED, SPEECH IS UNCLEAR. ON ROOM AIR, BREATHING EVEN AND UNLABORED. APPEARS CALM AND IN NO DISTRESS. PATIENT IS CURRENTLY BEING TRANSFUSED WITH 1 UNIT PRBC, PIV ACCESS OVER RFA G 22 INTACT AND PATENT. PROVIDED FOR COMFORT AND SAFETY. WILL CONT TO MONITOR.
--- NOTE | 2016-09-21 19:36 | NUR ---
MS RN CLOSING NOTES PATIENT IN BED, NOT IN DISTRESS. BLOOD TRANSFUSION 1 UNIT PRBC STILL IN PROGRESS WITH NO S/S OF ADVERSE SIDE EFFECT NOTED. MAGNESIUM SUPPLEMENTED ORDERED. CALL LIGHT WITHIN REACH. BED LOW AND LOCKED, SIDE RAILS UP X2. LAB IN AM ORDERED. PER MADELYN, POSSIBLE TRANSFER TO GPS IN AM IS MEDICALLY STABLE. ENDORSED TO [employer] OFFICER RN FOR CONTINUITY OF CARE.
--- NOTE | 2016-09-21 20:17 | NUR ---
RN NOTES: 1 UNIT PRBC WAS FINISHED AT THIS TIME. VS WNL, STABLE. PATIENT AOX2, DENIES ANY PAIN OR DIFFICULTY BREATHING, NO SIGNS OF TRANSFUSION REACTIONS SEEN. WILL CONT TO MONITOR.
--- NOTE | 2016-09-22 01:00 | NUR ---
RN NOTES: PATIENT AWAKE AT THIS TIME, KEPT SAYING , "GET HER OUT". APPEARS CONFUSED AND WAS SAYING THINGS UNCLEARLY. REORIENTED AND REASSURED PATIENT. WILL CONT TO MONITOR.
[2016-09-22 06:30] LABS: BASOPHILS % (AUTO) 0.3 % (0.0-2.0); EOSINOPHILS # (AUTO) 0.5 /CMM (0.0-0.7); EOSINOPHILS % (AUTO) 7.5 % (0.0-6.0); HEMATOCRIT 28 % (33-45); HEMOGLOBIN 8.7 g/dL (11.5-14.8); LYMPHOCYTES # (AUTO) 1.6 /CMM (0.8-4.8); MEAN CORPUSCULAR HEMOGLOBIN 24 PG (26.0-33.0); MEAN CORPUSCULAR HGB CONC 31 g/dl (31.0-36.0); MEAN CORPUSCULAR VOLUME 78 fL (82-100); MONOCYTES # (AUTO) 0.8 /CMM (0.1-1.30); MONOCYTES % (AUTO) 12.6 % (2.0-12.0); NEUTROPHILS # (AUTO) 3.6 /CMM (1.8-8.9); NEUTROPHILS % (AUTO) 55.6 % (43.0-81.0); PLATELET COUNT (AUTO) 374 /CMM (150-450); RDW COEFFICIENT OF VARIATION 17.4 (11.5-15.0); RED BLOOD CELL COUNT(AUTO) 3.64 MIL/uL (4.0-5.2); WHITE BLOOD COUNT (AUTO) 6.5 K/uL (4.3-11.0)
[2016-09-22 06:39] LABS: CALCIUM, SERUM 8.1 mg/dL (8.5-10.1); MAGNESIUM 1.9 mg/dL (1.8-2.4); PHOSPHORUS 3.7 mg/dL (2.5-4.9)
--- NOTE | 2016-09-22 06:45 | NUR ---
MS RN CLOSING NOTES: PATIENT IN BDE, AOX2, ON ROOM AIR, BREATHING EVEN AND UNLABORED. APPEARS CALM AND IN NO DISTRESS, WAS ABLE TO SLEEP INTERMITTENTLY THROUGH NIGHT. PIV ACCESS OVER RFA G 22 INTACT AND PATENT. DUE MEDS GIVEN. PROVIDED FOR COMFORT AND SAFETY. WILL ENDORSE TO AM RN FOR LIANA.
--- NOTE | 2016-09-22 07:15 | NUR ---
MS RN OPENING RECEIVED PT A/OX3 SLEEPING WELL DENIES SOB, DIFFICULTY BREATHING OR PAIN AT THIS TIME. PT STATES NO NEEDS AT THIS TIME AND LEFT WITH CALL LIGHT IN REACH, BED LOWERED AND LOCKED, RAILS UPX3 FOR SAFETY AND WILL ROUND Q2H PRN.
[2016-09-22 08:00] VITALS: BP 102/56
[2016-09-22] MEDS: PANTOPRAZOLE 40 MG TABLET.DR PO SCH (08:36)
[2016-09-22] MEDS: DIVALPROEX SODIUM 500 MG TABLET.DR PO SCH (08:37)
[2016-09-22] MEDS: FOLIC ACID 1 MG TABLET PO SCH (08:38)
[2016-09-22] MEDS: OLANZAPINE 5 MG/TAB.RAPDIS PO SCH (08:39)
[2016-09-22] MEDS: DOCUSATE SODIUM 100 MG CAPSULE PO SCH (08:39)
[2016-09-22] MEDS: MESALAMINE 400 MG CAP PO SCH ×2 (08:39→12:32)
[2016-09-22 08:43] VITALS: BP 102/56
[2016-09-22] MEDS: METOPROLOL TARTRATE 25 MG TABLET PO SCH (08:43)
--- NOTE | 2016-09-22 09:54 | NUR ---
MS RN NOTES PATIENT PACING UP AND DOWN MALIK. ASSISTED BACK TO ROOM. CALLED GPS INFORMED HOLD ON AND NO NEW HOLD ORDERED AND ASKED IF PATIENT NEEDING EVAL AGAIN?..THEY WILL CALL BE BACK
--- NOTE | 2016-09-22 10:15 | NUR ---
MS RN NOTES TALKED TO [facility] AND THEY SAID PATIENT IS NOT ON A HOLD AND ON DC TO CALL PET TEAM AT [phone] TO COME AND EVALUATE PATIENT BEFORE TRANSFER
--- NOTE | 2016-09-22 13:03 | NUR ---
MS RN NOTES CALLED [facility] AND NOTIFIED OF PATIENT DC. BRANDY CALLED INTAKE FOR PATIENT. PATIENT WILL BE PLACED ON A HOLD AND DC'D TO [facility]
--- NOTE | 2016-09-22 13:30 | NUR ---
MS RN NOTES PT REFUSING IV IRON AT THIS TIME. WILL ATTEMPT AGAIN
--- NOTE | 2016-09-22 13:35 | NUR ---
MS RN NOTES PINKY AT BEDSIDE PET. CHRISTIE MALIK AWARE OF PATIENT DC TO [facility]
[2016-09-22] MEDS: SOD FERRIC GLUC 125 MG in IV NS 0.9% 100 ML IV SCH (14:00)
--- NOTE | 2016-09-22 14:00 | NUR ---
MS RN NOTES PT REFUSING IRON IV. WILL ATTEMPT 1 MORE TIME
[2016-09-22] MEDS ORDERED: IV SET PRIMARY PUMP SET 1 EA INFUS.SET MC ONE (14:13)
--- NOTE | 2016-09-22 14:23 | NUR ---
MS RN NOTES PATIENT REFUSING FERRLECIT X3 ATTEMPTS. RETURNED IRON TO PHARM
--- NOTE | 2016-09-22 14:41 | NUR ---
MS RN NOTES PATIENT TALKING ABOUT MONEY..CHECKED BELONGINGS LIST AND NOTHING LISTED...CHECKED GEROPSYCH BELONGINGS LIST AND IT SHOWS 20$ IS IN THE SAFE FROM PATIENT. BRANDY ONEAL AWARE PATIENT BELONGINGS IN SAFE. FAXED FACE SHEET TO ER ADMITTING TO HAVE PATIENT TRANSFERED TO [facility] IN [facility]ER
--- NOTE | 2016-09-22 14:59 | NUR ---
MS RN NOTES IV REMOVED PRESSURE AND DRESSING APPLIED NO BLEEDING
--- NOTE | 2016-09-22 15:03 | NUR ---
MS CURRICULUM COACH PT PICKED UP BY BRANDY ONEAL TO BE TRANSPORTED TO [facility]. PATIENT DC EXPLAINED AND LIANA TRANSFERED TO BRANDY ONEAL. PT ASSISTED TO WHEELCHAIR AND LEFT IN STABLE CONDITION. PT DC SIGNED BY 2 RN
== END 2016-09-22 15:05 | DRG 385 ==
LOC: MEDSG2 10:34
PROVIDERS: ATTEND Internal Medicine
PROC: 0DJ08ZZ Inspection of Upper Intestinal Tract, Via Natural or Artificial Opening Endoscopic (ICD-10-PCS; principal; 2016-09-17 12:35)
PROC: 0DBF8ZX Excision of Right Large Intestine, Via Natural or Artificial Opening Endoscopic, Diagnostic (ICD-10-PCS; 2016-09-18)
PROC: 30233N1 Transfusion of Nonautologous Red Blood Cells into Peripheral Vein, Percutaneous Approach (ICD-10-PCS; 2016-09-21)
DX: K50.90 Crohn's disease, unspecified, without complications (principal); E43 Unspecified severe protein-calorie malnutrition; G93.41 Metabolic encephalopathy; K92.2 Gastrointestinal hemorrhage, unspecified; E87.0 Hyperosmolality and hypernatremia; F20.0 Paranoid schizophrenia; F29 Unspecified psychosis not due to a substance or known physiological condition; F03.90 Unspecified dementia, unspecified severity, without behavioral disturbance, psychotic disturbance, mood disturbance, and anxiety; E78.5 Hyperlipidemia, unspecified; K21.9 Gastro-esophageal reflux disease without esophagitis; F50.9 Eating disorder, unspecified; Z68.32 Body mass index [BMI] 32.0-32.9, adult; E66.01 Morbid (severe) obesity due to excess calories
CPT/HCPCS: 36415; 80048-TC; 80053-TC; 80164-TC; 83540-TC; 83735-TC; 84100-TC; 84443-TC; 85025-TC; 86850-TC; 86921-TC; 87081-TC; 88305-TC; J2001; J2704; J2916; J3420; J3475; J7030; J7050; P9016-BL; Z7610

== ENCOUNTER 2016-09-22 14:46 | Inpatient (IN) | payer MEDICARE, MEDICAID ==
[~2016-09-22] VITALS: Ht 157.5 cm; Wt 90.7 kg
[~2016-09-22 14:46] MED LIST changes: -AMIN30LI2 PO; -CLON0.5T PO; +LORA-258 PO; -MELA3TAB PO; -OLAN10TA3 PO; +TEMA7.5C PO
--- NOTE | 2016-09-22 15:08 | NUR ---
GPS RN ADMITTING NOTE : PATIENT 70 Y/O FEMALE ADMITTED FROM [facility] ON 5150 HOLD FOR GD PER HOLD PATIENT A/O X2 DISORGANIZED,IRRITABLE GUARDED AND SUSPICIOUS HOSTILE IRRITABLE SELECTIVELY MUTE AT TIMES POOR IN SIGHT, IMPAIRED JUDGMENT HISTORY OF SCHIZOPHRENIA. UPON FACE TO FACE ASSESSMENT PATIENT IN DINNING ROOM,PATIENT A/O 2-3 NO S/S DISTRESS NOTED, DENIES SI/HI GUARDED AND SUSPICIOUS MAKHANI NOTIFIED WITH ORDERS, BELONGINGS CHECKED AND PLACED TO LOCKER 218 A WILL CONTINUE MONITORING FOR SAFETY AND BEHAVIOR Q 15 MIN CONTRABAND
[2016-09-22] MEDS ORDERED: LORAZEPAM 0.5 MG TABLET PO PRN (15:30)
[2016-09-22] MEDS ORDERED: MAG HYDROX/AL HYDROX/SIMETH 30 ML UDC PO PRN (15:30)
[2016-09-22] MEDS ORDERED: MAGNESIUM HYDROXIDE 30 ML UDC PO PRN (15:30)
[2016-09-22] MEDS ORDERED: ACETAMINOPHEN 325 MG TABLET PO PRN (15:30)
[2016-09-22 16:06] VITALS: BP 130/69
--- NOTE | 2016-09-22 19:11 | NUR ---
GPS RN NOTE: DR LUNA NOTIFIED FOR NEW ADMISSION AND TO RECONCILED MEDICATIONS NO NEW ORDERS AT THIS TIME
[2016-09-22 20:19] VITALS: BP 101/60
[2016-09-22] MEDS ORDERED: TEMAZEPAM 7.5 MG CAPSULE PO PRN (22:00)
--- NOTE | 2016-09-23 00:40 | NUR ---
Pt has been with flat affect & depressed mood but redirectable.
[2016-09-23 07:52] LABS: ALBUMIN 2.5 g/dL (3.4-5.0); BILIRUBIN,TOTAL 0.2 mg/dL (0.2-1.0); CALCIUM, SERUM 8.2 mg/dL (8.5-10.1); POTASSIUM 3.9 mmol/L (3.5-5.1); TOTAL PROTEIN, SERUM 6.4 g/dL (6.4-8.2)
[2016-09-23 08:00] VITALS: BP 115/85
--- NOTE | 2016-09-23 15:19 | NUR ---
Initial Discharge Plan: Patient resides at [facility] [address] [place] [address]. [place] [address]. . SW spoke to Rusty from the facility who confirmed that patient can return to the facility upon discharge. SW will follow-up with MD and patient regarding most appropriate discharge plan. SW will help form a safe and proper discharge.
[2016-09-23 16:00] VITALS: BP 119/68
[2016-09-23 17:06] LABS: CHOLESTEROL 162 mg/dL (<200); HDL CHOLESTEROL 46 mg/dL (40-60); LDL 92 mg/dL (0-99); TRIGLYCERIDES 127 mg/dL (30-150)
--- NOTE | 2016-09-23 18:43 | NUR ---
RN CLOSING NOTES PATIENT IS AWAKE, SITTING UP IN BED. NOT IN DISTRESS. NO C/O PAIN OR ANY DISCOMFORT. CONTINUE ON 5150 ORDERED. CALL LIGHT WITHIN REACH. FOR LIPID TEST IN AM. WILL ENDORSE TO PLANT TECHNICAL SPECIALIST RN FOR CONTINUITY OF CARE.
--- NOTE | 2016-09-23 19:00 | NUR ---
FOLLOW UP MED RECON TO MD. NOTIFIED DR. LUNA. ENDORSED TO PUBLIC INFORMATION DIRECTOR RN .
[2016-09-23 20:00] VITALS: BP 103/60
[2016-09-23] MEDS: OLANZAPINE 5 MG/TAB.RAPDIS PO SCH (21:11)
[2016-09-23] MEDS: DIVALPROEX SODIUM 125 MG CAP.SPRINK PO SCH (21:11)
--- NOTE | 2016-09-24 08:31 | NUR ---
Psychosocial assessment was reviewed and I concur with the information provided. No changes are necessary. Marcellus Crisostomo, SUPERVISOR [employer] [id number] Addendum: 09/24/16 at 0817 by MARCELLUS CRISOSTOMO SW Amended: Links added.
[2016-09-24] MEDS: OLANZAPINE 5 MG/TAB.RAPDIS PO SCH ×2 (08:33→21:24)
[2016-09-24] MEDS: DIVALPROEX SODIUM 125 MG CAP.SPRINK PO SCH ×2 (08:34→21:24)
[2016-09-24 08:36] VITALS: BP 116/61
[2016-09-24] MEDS ORDERED: LORAZEPAM 0.5 MG TABLET PO PRN (10:00)
[2016-09-24] MEDS: FERROUS SULFATE (325 MG) 325 MG/TAB TABLET PO SCH ×2 (13:38→16:43)
[2016-09-24 16:54] VITALS: BP 94/43
[2016-09-24 18:10] VITALS: BP 95/63
[2016-09-24 20:37] VITALS: BP 108/58
[2016-09-24] MEDS: METOPROLOL TARTRATE 25 MG TABLET PO SCH (21:00)
[2016-09-24] MEDS: DOCUSATE SODIUM 100 MG CAPSULE PO SCH (21:24)
[2016-09-24] MEDS ORDERED: TEMAZEPAM 7.5 MG CAPSULE PO SCH (22:00)
[2016-09-25 08:00] VITALS: BP 102/55
[2016-09-25] MEDS: FOLIC ACID 1 MG TABLET PO SCH (08:39)
[2016-09-25] MEDS: PANTOPRAZOLE 40 MG TABLET.DR PO SCH (08:39)
[2016-09-25] MEDS: DOCUSATE SODIUM 100 MG CAPSULE PO SCH ×2 (08:39→20:38)
[2016-09-25] MEDS: FERROUS SULFATE (325 MG) 325 MG/TAB TABLET PO SCH ×2 (08:39→17:13)
[2016-09-25] MEDS: OLANZAPINE 5 MG/TAB.RAPDIS PO SCH ×3 (08:40→20:45)
[2016-09-25] MEDS: METOPROLOL TARTRATE 25 MG TABLET PO SCH ×2 (08:40→20:38)
[2016-09-25] MEDS: DIVALPROEX SODIUM 125 MG CAP.SPRINK PO SCH ×2 (08:40→20:38)
[2016-09-25 11:34] LABS: BASOPHILS % (AUTO) 0.5 % (0.0-2.0); EOSINOPHILS # (AUTO) 0.2 /CMM (0.0-0.7); EOSINOPHILS % (AUTO) 2.7 % (0.0-6.0); HEMATOCRIT 29 % (33-45); HEMOGLOBIN 9.3 g/dL (11.5-14.8); LYMPHOCYTES # (AUTO) 0.9 /CMM (0.8-4.8); LYMPHOCYTES % (AUTO) 13.5 % (20.0-44.0); MEAN CORPUSCULAR HEMOGLOBIN 25 PG (26.0-33.0); MEAN CORPUSCULAR HGB CONC 32 g/dl (31.0-36.0); MEAN CORPUSCULAR VOLUME 78 fL (82-100); MONOCYTES # (AUTO) 0.6 /CMM (0.1-1.30); MONOCYTES % (AUTO) 9.7 % (2.0-12.0); NEUTROPHILS # (AUTO) 4.8 /CMM (1.8-8.9); NEUTROPHILS % (AUTO) 73.6 % (43.0-81.0); PLATELET COUNT (AUTO) 333 /CMM (150-450); RDW COEFFICIENT OF VARIATION 18.7 (11.5-15.0); RED BLOOD CELL COUNT(AUTO) 3.73 MIL/uL (4.0-5.2); WHITE BLOOD COUNT (AUTO) 6.5 K/uL (4.3-11.0)
[2016-09-25 11:47] LABS: CALCIUM, SERUM 8.4 mg/dL (8.5-10.1); MAGNESIUM 1.7 mg/dL (1.8-2.4)
[2016-09-25 16:00] VITALS: BP 132/86
[2016-09-25 20:08] VITALS: BP 109/60
[2016-09-26 08:00] VITALS: BP 102/49
[2016-09-26] MEDS: FERROUS SULFATE (325 MG) 325 MG/TAB TABLET PO SCH ×2 (08:44→17:00)
[2016-09-26] MEDS: DOCUSATE SODIUM 100 MG CAPSULE PO SCH ×2 (08:44→20:17)
[2016-09-26] MEDS: OLANZAPINE 5 MG/TAB.RAPDIS PO SCH ×2 (08:44→20:20)
[2016-09-26] MEDS: PANTOPRAZOLE 40 MG TABLET.DR PO SCH (08:44)
[2016-09-26] MEDS: FOLIC ACID 1 MG TABLET PO SCH (08:44)
[2016-09-26] MEDS: DIVALPROEX SODIUM 125 MG CAP.SPRINK PO SCH ×2 (08:44→20:20)
[2016-09-26] MEDS: METOPROLOL TARTRATE 25 MG TABLET PO SCH ×2 (08:51→20:21)
[2016-09-26] MEDS: MAGNESIUM OXIDE 400 MG TABLET PO SCH (10:30)
--- NOTE | 2016-09-26 10:44 | NUR ---
MS RN NOTES PATIENT REFUSING MAG OXIDE AT THIS TIME. WILL ATTEMPT AGAIN
--- NOTE | 2016-09-26 11:25 | NUR ---
RN NOTES PT STILL REFUSING MAG OXIDE. STATES"JUST LEAVE ME ALONE" EDUCATED ON MEDICATION USAGE AND NECESSITY
[2016-09-26 16:00] VITALS: BP 101/51
--- NOTE | 2016-09-26 16:17 | NUR ---
RN NOTES PATIENT REFUSING IRON PILL. EXPLAINED THE IMPORTANCE OF THIS AND SHE IS STILL REFUSING. WILL TRY AGAIN
--- NOTE | 2016-09-26 16:54 | NUR ---
RN NOTES PATIENT STILL REFUSING MEDICATION
[2016-09-26 20:00] VITALS: BP 102/68
[2016-09-27 08:00] VITALS: BP 96/54
[2016-09-27] MEDS: FOLIC ACID 1 MG TABLET PO SCH (08:13)
[2016-09-27] MEDS: MAGNESIUM OXIDE 400 MG TABLET PO SCH (08:13)
[2016-09-27] MEDS: METOPROLOL TARTRATE 25 MG TABLET PO SCH ×2 (08:14→21:00)
[2016-09-27] MEDS: PANTOPRAZOLE 40 MG TABLET.DR PO SCH (08:14)
[2016-09-27] MEDS: DOCUSATE SODIUM 100 MG CAPSULE PO SCH ×2 (08:14→21:34)
[2016-09-27] MEDS: OLANZAPINE 5 MG/TAB.RAPDIS PO SCH ×2 (08:14→21:35)
[2016-09-27 08:22] VITALS: BP 96/54
[2016-09-27] MEDS: DIVALPROEX SODIUM 125 MG CAP.SPRINK PO SCH ×2 (09:00→21:34)
[2016-09-27] MEDS: FERROUS SULFATE (325 MG) 325 MG/TAB TABLET PO SCH ×2 (09:00→16:47)
[2016-09-27 16:46] VITALS: BP 127/55
[2016-09-27 20:00] VITALS: BP 149/55
[2016-09-27 20:25] VITALS: BP 94/55
[2016-09-28] MEDS: PANTOPRAZOLE 40 MG TABLET.DR PO SCH ×2 (07:30→09:05)
[2016-09-28 08:42] VITALS: BP 108/51
[2016-09-28] MEDS: METOPROLOL TARTRATE 25 MG TABLET PO SCH ×2 (09:00→21:21)
[2016-09-28] MEDS: DOCUSATE SODIUM 100 MG CAPSULE PO SCH ×3 (09:00→21:20)
[2016-09-28] MEDS: FERROUS SULFATE (325 MG) 325 MG/TAB TABLET PO SCH ×4 (09:00→17:30)
[2016-09-28] MEDS: DIVALPROEX SODIUM 125 MG CAP.SPRINK PO SCH ×2 (09:05→21:20)
[2016-09-28] MEDS: FOLIC ACID 1 MG TABLET PO SCH (09:05)
[2016-09-28] MEDS: MAGNESIUM OXIDE 400 MG TABLET PO SCH (09:05)
[2016-09-28] MEDS: OLANZAPINE 5 MG/TAB.RAPDIS PO SCH ×2 (09:06→21:20)
--- NOTE | 2016-09-28 10:30 | NUR ---
MED COMPLIANT,WALKS ABOUT,SEEMS DEPRESSED.
[2016-09-28 16:12] VITALS: BP 121/64
[2016-09-28 20:00] VITALS: BP 129/50
[2016-09-29 08:15] VITALS: BP 100/58
[2016-09-29] MEDS: FOLIC ACID 1 MG TABLET PO SCH (08:18)
[2016-09-29] MEDS: PANTOPRAZOLE 40 MG TABLET.DR PO SCH (08:18)
[2016-09-29] MEDS: DOCUSATE SODIUM 100 MG CAPSULE PO SCH ×2 (08:18→21:21)
[2016-09-29] MEDS: MAGNESIUM OXIDE 400 MG TABLET PO SCH (08:19)
[2016-09-29] MEDS: FERROUS SULFATE (325 MG) 325 MG/TAB TABLET PO SCH ×2 (08:19→17:00)
[2016-09-29] MEDS: DIVALPROEX SODIUM 125 MG CAP.SPRINK PO SCH ×2 (08:19→21:22)
[2016-09-29] MEDS: METOPROLOL TARTRATE 25 MG TABLET PO SCH ×2 (08:19→21:00)
[2016-09-29] MEDS: OLANZAPINE 5 MG/TAB.RAPDIS PO SCH ×2 (08:19→21:24)
--- NOTE | 2016-09-29 11:05 | NUR ---
Received pt. asleep in bed, breathing is even and unlabored. No sign of distress and no agitation noted. Will continue to monitor for safety.
[2016-09-29 16:00] VITALS: BP 132/66
[2016-09-29 20:25] VITALS: BP 90/57
[2016-09-29 21:30] VITALS: BP 109/62
[2016-09-30] MEDS: DOCUSATE SODIUM 100 MG CAPSULE PO SCH (08:04)
[2016-09-30] MEDS: PANTOPRAZOLE 40 MG TABLET.DR PO SCH (08:05)
[2016-09-30] MEDS: MAGNESIUM OXIDE 400 MG TABLET PO SCH (08:05)
[2016-09-30] MEDS: DIVALPROEX SODIUM 125 MG CAP.SPRINK PO SCH (08:05)
[2016-09-30] MEDS: FOLIC ACID 1 MG TABLET PO SCH (08:06)
[2016-09-30] MEDS: METOPROLOL TARTRATE 25 MG TABLET PO SCH (08:08)
[2016-09-30] MEDS: OLANZAPINE 5 MG/TAB.RAPDIS PO SCH (08:09)
[2016-09-30] MEDS: FERROUS SULFATE (325 MG) 325 MG/TAB TABLET PO SCH (08:15)
[2016-09-30 08:38] VITALS: BP 104/60
--- NOTE | 2016-09-30 13:15 | NUR ---
[id number]: PT IS 70 YEARS OLD FEMALE DISCHARGE TO [facility] [address] [place]. [address], IN STABLE CONDITION. COMPLIANT WITH MEDICATIONS, COOPERATIVE WITH TREATMENT PLANS. PT DENIES SI/HI/AVH. BEHAVIOR IMPROVED, PSYCHIATRIC PLANS MET, MEDICAL TX PLANS DEFERRED FOR CONTINUAL MONITORING. EDUCATED PT ABOUT AFTER CARE PLAN AND COPY PROVIDED. RETURNED PERSONAL BELONGINGS TO PT. MEDICATIONS RECONCILED WITH DR. SIBLEY AND DR. LUNA. REPORT GIVEN TO PARKER ONEAL AT [facility] FOR CONTINUITY OF CARE. PT REFUSED TO SIGN DISCHARGE PAPERWORK. PT REFUSED SKIN ASSESSMENT AT THIS TIME. PT LEFT THE UNIT ACCOMPANIED BY STAFF VIA AMBULANCE.
--- NOTE | 2016-09-30 14:28 | NUR ---
Discharge Note: Patient was discharged back to [facility] [address] [place] [address]. . Via med response. Patient did not have any contacts or family to notify. Patient denied S/H ideations and V/A hallucinations at the time of discharge. Patient did not appear to be in any distress at the time of discharge. Facilitated info to IDT team who are in agreement with discharge arrangement. The multidisciplinary exitcare form was done, printed, signed, and given to the patient.
== END 2016-09-30 13:15 | DRG 885 ==
LOC: GPS 14:46
PROVIDERS: ADMIT Psychiatry & Neurology Psychiatry
DX: F20.0 Paranoid schizophrenia (principal); E43 Unspecified severe protein-calorie malnutrition; E66.01 Morbid (severe) obesity due to excess calories; K21.9 Gastro-esophageal reflux disease without esophagitis; I10 Essential (primary) hypertension; E78.5 Hyperlipidemia, unspecified; F29 Unspecified psychosis not due to a substance or known physiological condition; Z68.36 Body mass index [BMI] 36.0-36.9, adult; I70.90 Unspecified atherosclerosis; D50.0 Iron deficiency anemia secondary to blood loss (chronic); K52.9 Noninfective gastroenteritis and colitis, unspecified
CPT/HCPCS: 36415; 80048-TC; 80053-TC; 80061-TC; 83735-TC; 85025-TC; 87081-TC

== ENCOUNTER 2017-08-13 12:49 | Inpatient (IN) | payer MEDICARE, MEDICAID ==
[~2017-08-13] VITALS: Ht 167.6 cm; Wt 88.5 kg
[~2017-08-13 12:49] MED LIST changes: -DOCU-170 PO; +DOCU100C36 PO
--- NOTE | 2017-08-13 13:16 | NUR ---
PT GERMAN FROM [facility]. HERE FOR MEDICAL EVAL PRIOR TO [facility] ADM[facility]. PER REPORT, PT IS HAVING INCREASING AGITATION AND PARANOIA THINKING THAT SOMEBODY IS OUT TO GET HER. STABLE VITALS PIPER INSTALLER. NAD NOTED. AWAITING MD KELLER.
--- NOTE | 2017-08-13 13:22 | NUR ---
PAGED SUDHIR FOR EVAL
[2017-08-13 13:26] LABS: ALCOHOL, BLOOD < 3 mg/dL (0-0); BASOPHILS % (AUTO) 0.8 % (0.0-2.0); CALCIUM, SERUM 8.4 mg/dL (8.5-10.1); CARBON DIOXIDE 29 mmol/L (21-32); CHLORIDE 109 mmol/L (98-107); EOSINOPHILS % (AUTO) 3.6 % (0.0-6.0); GLUCOSE 98 mg/dL (74-106); HEMATOCRIT 33 % (33-45); MEAN CORPUSCULAR HEMOGLOBIN 30 PG (26.0-33.0); MEAN CORPUSCULAR HGB CONC 34 g/dl (31.0-36.0); MEAN CORPUSCULAR VOLUME 88 fL (82-100); MONOCYTES % (AUTO) 7.8 % (2.0-12.0); NEUTROPHILS # (AUTO) 3.3 /CMM (1.8-8.9); NEUTROPHILS % (AUTO) 63.8 % (43.0-81.0); PLATELET COUNT (AUTO) 212 /CMM (150-450); POTASSIUM 4.3 mmol/L (3.5-5.1); RDW COEFFICIENT OF VARIATION 17.8 (11.5-15.0); RED BLOOD CELL COUNT(AUTO) 3.71 MIL/uL (4.0-5.2); SODIUM SERUM 144 mmol/L (136-145); UREA NITROGEN, BLOOD 17 mg/dL (7-18); WHITE BLOOD COUNT (AUTO) 5.1 K/uL (4.3-11.0)
[2017-08-13 13:27] LABS: EOSINOPHILS # (AUTO) 0.2 /CMM (0.0-0.7); LYMPHOCYTES # (AUTO) 1.2 /CMM (0.8-4.8); MONOCYTES # (AUTO) 0.4 /CMM (0.1-1.30)
[2017-08-13 14:00] LABS: APPEARANCE,URINE Clear (CLEAR); BILIRUBIN,URINE Negative (NEGATIVE); BLOOD, URINE Small Ery/uL (NEGATIVE); COLOR,URINE Yellow (YELLOW); KETONES,URINE Negative (NEGATIVE); LEUKOCYTE ESTERASE ,URINE Small (NEGATIVE); NITRITE, URINE Negative (NEGATIVE); PROTEIN,URINE Negative (NEGATIVE); UGLUCOSE Negative (NEGATIVE); UROBILINOGEN,URINE 0.2 EU/dL (0.2)
--- NOTE | 2017-08-13 14:10 | NUR ---
SUDHIR RN AT BEDSIDE FOR PSYCH EVAL.
[2017-08-13] MEDS ORDERED: METO-356 PO (14:20)
[2017-08-13] MEDS ORDERED: OLAN10TA3 PO (14:20)
[2017-08-13] MEDS ORDERED: MELA3TAB PO (14:20)
[2017-08-13] MEDS ORDERED: MAGN400T6 PO (14:20)
[2017-08-13] MEDS ORDERED: OLAN7.5T3 PO (14:20)
[2017-08-13] MEDS ORDERED: MAGN400O6 PO (14:20)
[2017-08-13] MEDS ORDERED: DIVA125C PO (14:20)
[2017-08-13] MEDS ORDERED: MAG30ORA PO (14:20)
[2017-08-13] MEDS ORDERED: CRAN425C6 PO (14:20)
[2017-08-13 14:24] LABS: EOSINOPHILS % (MANUAL) 3 % (0-4); LYMPHOCYTES % (MANUAL) 30 % (16-48); MONOCYTES % (MANUAL) 7 % (0-11.0); NEUTROPHILS % (MANUAL) 60 (42-76)
[2017-08-13 14:26] LABS: BACTERIA,URINE None seen /HPF (None Seen); SQUAMOUS EPITHELIAL CELL,UR Few /HPF (None Seen)
--- NOTE | 2017-08-13 14:35 | NUR ---
REPORT GIVEN TO DARON. PT AWAITING TRANSFER TO FLOOR.
--- NOTE | 2017-08-13 16:26 | NUR ---
GPS RN NOTE: GPS RN NOTE PT IS A 71 Y/O FEMALE, BROUGHT INTO THE ER. ADMITTED ON A 5150 HOLD GD. FROM THE REPORT, IT WAS STATED THAT THE PATIENT BECAME VERY AGITATED AND PARANOID AT [facility]. SHE STARTED YELLING AND SCREAMING. PT IS ALERT AND ORIENTED X2, AMBULATORY, COOPERATIVE, FLAT AFFECT, DENIES SI/HI AT THE TIME OF ADMISSION, VS STABLE, PT IS ORIENTED TO THE UNIT, ALL VALUABLES HAVE BEEN CHECKED, ALL PAPERWORK AND COMPUTER WORK HAS BEEN SIGNED. SKIN ASSESSMENT WAS DENIED BY PATIENT. SHE STATES NOTHINGS WRONG WITH MY SKIN. PATIENT'S RIGHTS HAS BEEN EXPLAINED TO PT, PT VERBALIZES UNDERSTANDING. WILL MONITOR PT Q15MIN FOR SAFETY AND BEHAVIOR. DR. HEMPHILL, COVERING FOR [facility], WAS CALLED AND MADE AWARE OF ADMISSION. STANDING ORDERS WILL BE PUT IN. TRUONG CALLED AND MADE AWARE OF ADMISSION. Addendum: 08/13/17 at 1632 by DARON SERRATO RN PATIENT ARRIVED ON THE UNIT AT 1530. ALSO, NOTIFIED DR. GUERIN ABOUT ADMISSION AND TO RECONCILE MEDICATIONS.
[2017-08-13] MEDS ORDERED: ACETAMINOPHEN 325 MG TABLET PO PRN ×2 (17:00)
[2017-08-13] MEDS ORDERED: MAGNESIUM HYDROXIDE 30 ML UDC PO PRN ×2 (17:00)
[2017-08-13] MEDS ORDERED: LORAZEPAM 0.5 MG TABLET PO PRN (17:00)
[2017-08-13] MEDS ORDERED: MAG HYDROX/AL HYDROX/SIMETH 30 ML UDC PO PRN ×2 (17:00)
--- NOTE | 2017-08-13 17:24 | NUR ---
GPS/RN-NOTES DR. HEMPHILL COVERING FOR DR. SIBLEY TODAY NOTIFIED OF PATIENT ADMISSION IN THE UNIT WITH ORDERS.
[2017-08-13 20:31] VITALS: BP 132/62
[2017-08-13] MEDS: DOCUSATE SODIUM 100 MG CAPSULE PO SCH (20:40)
[2017-08-13] MEDS: TEMAZEPAM 7.5 MG CAPSULE PO PRN (21:04)
[2017-08-14 07:28] LABS: CHOLESTEROL 166 mg/dL (<200); HDL CHOLESTEROL 56 mg/dL (40-60); LDL 97 mg/dL (0-99); TRIGLYCERIDES 116 mg/dL (30-150)
[2017-08-14 07:30] LABS: ALBUMIN 2.6 g/dL (3.4-5.0); BILIRUBIN,TOTAL 0.3 mg/dL (0.2-1.0); CALCIUM, SERUM 8.3 mg/dL (8.5-10.1); TOTAL PROTEIN, SERUM 6.4 g/dL (6.4-8.2)
[2017-08-14 08:00] VITALS: BP 101/51
[2017-08-14] MEDS: MAGNESIUM OXIDE 400 MG TABLET PO SCH (08:44)
[2017-08-14] MEDS: METOPROLOL SUCCINATE 25 MG TAB.SR.24H PO SCH (08:44)
[2017-08-14] MEDS: DOCUSATE SODIUM 100 MG CAPSULE PO SCH ×2 (08:44→21:24)
[2017-08-14] MEDS ORDERED: Medication Not On Formulary EA (Cranberry Extract (Cranberry) 425 MG) PO SCH (09:00)
[2017-08-14] MEDS: FOLIC ACID 1 MG TABLET PO SCH (09:30)
[2017-08-14 16:00] VITALS: BP 113/57
[2017-08-14] MEDS: DIVALPROEX SODIUM 125 MG CAP.SPRINK PO SCH ×2 (16:54→21:24)
[2017-08-14] MEDS: OLANZAPINE 5 MG TABLET PO SCH (16:54)
[2017-08-14 20:00] VITALS: BP 102/62
[2017-08-14] MEDS: TEMAZEPAM 7.5 MG CAPSULE PO PRN (21:24)
[2017-08-15 08:00] VITALS: BP 109/68
--- NOTE | 2017-08-15 08:32 | NUR ---
Initial Discharge Note: Patient lives at a Custodial Facility, [facility] [address] [place] [address]. . EB contacted Rusty, irb compliance coordinator at facility, who verified that patient will be able to return to facility upon discharge. Patient has no family to contact. SW to follow up with MD and to facilitate a safe and proper discharge plan.
[2017-08-15] MEDS: FOLIC ACID 1 MG TABLET PO SCH (08:46)
[2017-08-15] MEDS: METOPROLOL SUCCINATE 25 MG TAB.SR.24H PO SCH (08:48)
[2017-08-15] MEDS: DOCUSATE SODIUM 100 MG CAPSULE PO SCH ×2 (08:48→21:01)
[2017-08-15] MEDS: DIVALPROEX SODIUM 125 MG CAP.SPRINK PO SCH ×2 (08:48→21:01)
[2017-08-15] MEDS: OLANZAPINE 5 MG TABLET PO SCH ×2 (08:48→17:53)
[2017-08-15] MEDS: MAGNESIUM OXIDE 400 MG TABLET PO SCH (08:49)
[2017-08-15 16:27] VITALS: BP 94/61
--- NOTE | 2017-08-15 19:45 | NUR ---
GPS RN NOTE: PATIENT RESTING IN BED, NO ACUTE DISTRESS NOTED. WILL CONTINUE TO MONITOR.
[2017-08-15 20:00] VITALS: BP 102/59
[2017-08-15] MEDS: TEMAZEPAM 7.5 MG CAPSULE PO PRN (21:02)
--- NOTE | 2017-08-15 21:05 | NUR ---
GPS RN NOTE: RESTORIL 7.5MG ORAL FOR SLEEP GIVEN PER MD ORDER. WILL CONTINUE TO MONITOR.
[2017-08-16 08:00] VITALS: BP 110/55
[2017-08-16] MEDS: MAGNESIUM OXIDE 400 MG TABLET PO SCH (08:55)
[2017-08-16] MEDS: DOCUSATE SODIUM 100 MG CAPSULE PO SCH ×2 (08:55→21:15)
[2017-08-16] MEDS: DIVALPROEX SODIUM 125 MG CAP.SPRINK PO SCH ×2 (08:55→21:15)
[2017-08-16] MEDS: OLANZAPINE 5 MG TABLET PO SCH ×2 (08:55→17:12)
[2017-08-16] MEDS: METOPROLOL SUCCINATE 25 MG TAB.SR.24H PO SCH (08:56)
[2017-08-16] MEDS: FOLIC ACID 1 MG TABLET PO SCH (08:59)
[2017-08-16 16:42] VITALS: BP 130/77
[2017-08-16 20:00] VITALS: BP 107/73
[2017-08-17 08:29] VITALS: BP 97/60
[2017-08-17] MEDS: METOPROLOL SUCCINATE 25 MG TAB.SR.24H PO SCH (09:00)
[2017-08-17] MEDS: OLANZAPINE 5 MG TABLET PO SCH ×2 (09:16→16:14)
[2017-08-17] MEDS: DOCUSATE SODIUM 100 MG CAPSULE PO SCH ×2 (09:16→20:43)
[2017-08-17] MEDS: MAGNESIUM OXIDE 400 MG TABLET PO SCH (09:17)
[2017-08-17] MEDS: DIVALPROEX SODIUM 125 MG CAP.SPRINK PO SCH ×2 (09:18→20:43)
[2017-08-17] MEDS: FOLIC ACID 1 MG TABLET PO SCH (09:18)
[2017-08-17 19:58] VITALS: BP 174/63
[2017-08-17 20:03] VITALS: BP 108/63
[2017-08-17] MEDS: TEMAZEPAM 7.5 MG CAPSULE PO PRN (21:04)
[2017-08-18 08:00] VITALS: BP 136/85
[2017-08-18] MEDS: FOLIC ACID 1 MG TABLET PO SCH (08:53)
[2017-08-18] MEDS: OLANZAPINE 5 MG TABLET PO SCH ×2 (08:54→17:39)
[2017-08-18] MEDS: DOCUSATE SODIUM 100 MG CAPSULE PO SCH ×2 (08:54→20:20)
[2017-08-18] MEDS: METOPROLOL SUCCINATE 25 MG TAB.SR.24H PO SCH (08:54)
[2017-08-18] MEDS: DIVALPROEX SODIUM 125 MG CAP.SPRINK PO SCH ×3 (08:54→20:20)
[2017-08-18] MEDS: MAGNESIUM OXIDE 400 MG TABLET PO SCH (08:55)
--- NOTE | 2017-08-18 11:15 | NUR ---
Discharge Planning: EB faxed updated clinicals on patient to [facility], [facility] [address] [place] [address]. / fax # [phone].
[2017-08-18 16:00] VITALS: BP 114/62
[2017-08-18 19:56] VITALS: BP 122/76
[2017-08-18] MEDS: TEMAZEPAM 7.5 MG CAPSULE PO PRN (23:18)
[2017-08-19 08:00] VITALS: BP 130/62
[2017-08-19] MEDS: DIVALPROEX SODIUM 125 MG CAP.SPRINK PO SCH ×3 (09:00→21:40)
[2017-08-19] MEDS: OLANZAPINE 5 MG TABLET PO SCH ×2 (10:59→17:14)
[2017-08-19] MEDS: METOPROLOL SUCCINATE 25 MG TAB.SR.24H PO SCH (11:00)
[2017-08-19] MEDS: MAGNESIUM OXIDE 400 MG TABLET PO SCH (11:00)
[2017-08-19] MEDS: FOLIC ACID 1 MG TABLET PO SCH (11:01)
[2017-08-19] MEDS: DOCUSATE SODIUM 100 MG CAPSULE PO SCH ×2 (11:01→21:40)
[2017-08-19 16:00] VITALS: BP 136/80
[2017-08-19 20:37] VITALS: BP 109/55
[2017-08-20 08:00] VITALS: BP 144/69
[2017-08-20] MEDS: DOCUSATE SODIUM 100 MG CAPSULE PO SCH ×2 (08:00→20:36)
[2017-08-20] MEDS: MAGNESIUM OXIDE 400 MG TABLET PO SCH (08:01)
[2017-08-20] MEDS: FOLIC ACID 1 MG TABLET PO SCH (08:01)
[2017-08-20] MEDS: DIVALPROEX SODIUM 125 MG CAP.SPRINK PO SCH ×3 (08:01→20:36)
[2017-08-20] MEDS: OLANZAPINE 5 MG TABLET PO SCH ×2 (08:02→16:57)
[2017-08-20] MEDS: METOPROLOL SUCCINATE 25 MG TAB.SR.24H PO SCH (08:05)
[2017-08-20 16:12] VITALS: BP 123/68
[2017-08-20 20:22] VITALS: BP 102/76
[2017-08-21 08:00] VITALS: BP 149/90
[2017-08-21] MEDS: DOCUSATE SODIUM 100 MG CAPSULE PO SCH (08:34)
[2017-08-21] MEDS: DIVALPROEX SODIUM 125 MG CAP.SPRINK PO SCH (08:34)
[2017-08-21] MEDS: FOLIC ACID 1 MG TABLET PO SCH (08:34)
[2017-08-21] MEDS: OLANZAPINE 5 MG TABLET PO SCH (08:34)
[2017-08-21] MEDS: MAGNESIUM OXIDE 400 MG TABLET PO SCH (08:34)
[2017-08-21 09:14] VITALS: BP 149/90
[2017-08-21] MEDS: METOPROLOL SUCCINATE 25 MG TAB.SR.24H PO SCH (09:14)
--- NOTE | 2017-08-21 09:55 | NUR ---
Discharge Note: Patient will be discharged to [facility] [address] [place] [address]; and fax # via ambulance transportation set up by EB through [employer], trip # [phone]. Patient has no family to notify. EB notified the facility of this transfer. Upon discharge, patient does not appear to be in distress and is cooperative. Patient denies suicidal and homicidal ideation. Patient will be followed by accountant systems Dr. Thibodeaux [address] [phone] at the facility. Patient will also continue to be under the care of psychiatrist Dr. Montoya [address] [facility], [place] [address] / [phone]
== END 2017-08-21 11:45 | DRG 885 ==
LOC: ER 12:54 → GPS 15:29
PROVIDERS: ADMIT Psychiatry & Neurology Psychiatry; ATTEND Psychiatry & Neurology Psychiatry
DX: F25.9 Schizoaffective disorder, unspecified (principal); G93.49 Other encephalopathy; F03.90 Unspecified dementia, unspecified severity, without behavioral disturbance, psychotic disturbance, mood disturbance, and anxiety; F29 Unspecified psychosis not due to a substance or known physiological condition; E78.5 Hyperlipidemia, unspecified; I70.0 Atherosclerosis of aorta; K52.9 Noninfective gastroenteritis and colitis, unspecified; Z79.899 Other long term (current) drug therapy; I10 Essential (primary) hypertension; F41.9 Anxiety disorder, unspecified; F32.9 Major depressive disorder, single episode, unspecified; Z91.14 Patient's other noncompliance with medication regimen; Z73.6 Limitation of activities due to disability; K21.9 Gastro-esophageal reflux disease without esophagitis
CPT/HCPCS: 36415; 80048-TC; 80053-TC; 80061-TC; 80305; 81000-TC; 85025-TC; 87081-TC; A4606; G0480; Z7610

== ENCOUNTER 2019-02-04 11:52 | Inpatient (IN) | payer MEDICARE, MEDICAID ==
[~2019-02-04] VITALS: Ht 167.6 cm; Wt 99.8 kg
[~2019-02-04 11:52] MED LIST changes: -CALC-883 PO; +CRAN425C6 PO; -LORA-258 PO; +MAG30ORA PO; +MAGN400O6 PO; +MAGN400T6 PO; +MELA3TAB PO; +METO-356 PO; -METO25TA6 PO; -MULT-213 PO; -PANT40TA4 PO; -TEMA7.5C PO
--- NOTE | 2019-02-04 12:09 | NUR ---
SEEN AND EXAMINED BY .
--- NOTE | 2019-02-04 12:35 | NUR ---
IV LINE ESTABLISHED BLOOD DRAWNED AND SENT TO LAB.
--- NOTE | 2019-02-04 12:39 | NUR ---
Myrtle gray in [facility] - 02/04/19 at 1249 by LIZABETH CARPENTER REPAIRER AT [facility] FOR [facility].
--- NOTE | 2019-02-04 12:39 | NUR ---
LOAD HAUL DUMP OPERATOR AT BEDSIDE FOR XRAY.
[2019-02-04 12:40] LABS: BASOPHILS % (AUTO) 0.4 % (0.0-2.0); HEMATOCRIT 35 % (33-45); HEMOGLOBIN 11.9 g/dL (11.5-14.8); LYMPHOCYTES # (AUTO) 0.8 /CMM (0.8-4.8); MEAN CORPUSCULAR HGB CONC 34 g/dl (31.0-36.0); MEAN CORPUSCULAR VOLUME 95 fL (82-100); MONOCYTES # (AUTO) 1.5 /CMM (0.1-1.30); MONOCYTES % (AUTO) 15.5 % (2.0-12.0); NEUTROPHILS # (AUTO) 7.3 /CMM (1.8-8.9); NEUTROPHILS % (AUTO) 76.1 % (43.0-81.0); PLATELET COUNT (AUTO) 184 /CMM (150-450); WHITE BLOOD COUNT (AUTO) 9.7 K/uL (4.3-11.0)
[2019-02-04 12:53] LABS: CALCIUM, SERUM 8.2 mg/dL (8.5-10.1); CARBON DIOXIDE 27 mmol/L (21-32); CHLORIDE 106 mmol/L (98-107); CREATININE 1.3 mg/dL (0.6-1.3); GLUCOSE 123 mg/dL (74-106); SODIUM SERUM 143 mmol/L (136-145); UREA NITROGEN, BLOOD 16 mg/dL (7-18)
[2019-02-04 12:59] LABS: ALANINE AMINOTRANSFERASE 11 U/L (12-78); ALBUMIN 2.5 g/dL (3.4-5.0); ALKALINE PHOSPHATASE 70 U/L (46-116); ASPARTATE AMINOTRANSFERASE 13 U/L (15-37); BILIRUBIN,DIRECT 0.1 mg/dL (0.0-0.2); BILIRUBIN,TOTAL 0.4 mg/dL (0.2-1.0); LIPASE 68 U/L (73-393); TOTAL PROTEIN, SERUM 6.9 g/dL (6.4-8.2)
--- NOTE | 2019-02-04 13:08 | NUR ---
URINE SPECIMEN COLLECTED AND SENT TO LAB.
[2019-02-04 13:09] LABS: APPEARANCE,URINE Turbid (CLEAR); BILIRUBIN,URINE Negative (NEGATIVE); BLOOD, URINE Large Ery/uL (NEGATIVE); COLOR,URINE Yellow (YELLOW); KETONES,URINE Trace (NEGATIVE); LEUKOCYTE ESTERASE ,URINE Large (NEGATIVE); NITRITE, URINE Positive (NEGATIVE); PROTEIN,URINE 100 mg/dl (NEGATIVE); UGLUCOSE Negative (NEGATIVE); UROBILINOGEN,URINE 0.2 EU/dL (0.2)
[2019-02-04] MEDS ORDERED: NA P133E RC (13:24)
[2019-02-04] MEDS ORDERED: OLAN7.5T3 PO (13:24)
[2019-02-04] MEDS ORDERED: CHOL10002 PO (13:24)
[2019-02-04] MEDS ORDERED: DIVA500T2 PO (13:24)
[2019-02-04] MEDS ORDERED: BISA10SU61 RC (13:24)
[2019-02-04] MEDS ORDERED: CALC-494 PO (13:24)
[2019-02-04 13:26] LABS: BACTERIA,URINE Moderate /HPF (None Seen); SQUAMOUS EPITHELIAL CELL,UR Few /HPF (None Seen); WBC,URINE 80-100 /HPF (0-3)
[2019-02-04] MEDS ORDERED: CEFTRIAXONE 1GM BAG (ER ONLY) 50 ML IV ONE (13:30)
[2019-02-04] MEDS ORDERED: IV NS 0.9% 1,000 ML BAG IV ONE (13:30)
--- NOTE | 2019-02-04 13:45 | NUR ---
Myrtle gray in [facility] - 02/04/19 at 1345 by BILL [id number] GEN JAZMIN JOVEL
--- NOTE | 2019-02-04 13:45 | NUR ---
325-1 MEDSURG UTI, GEN WEAKNESS
--- NOTE | 2019-02-04 13:50 | NUR ---
REPORT GIVEN TO KIMMY LISA FOR LIANA.
[2019-02-04] MEDS: AZITHROMYCIN 500 MG in IV D5W 250 ML IV SCH (14:21)
--- NOTE | 2019-02-04 14:45 | NUR ---
MS RN NOTES RECEIVED PATIENT FROM ER, REPORT GIVEN BY KIMMY JI. PATIENT ALERT AND AWAKE ORIENTED X2. PATIENT WITH CONFUSION. HOB ELEVATED. NO SOB NOTED. DENIES ANY C/O PAIN NOR DISCOMFORT AT THIS TIME. ORIENTED PATIENT TO ROOM AND CALL LIGHT. RIGHT HAND PERIPHERAL LINE INTACT AND PATENT INFUSING NS @ 75ML/HR EFRAIN WELL. ALL BELONGINGS ACCOUNTED FOR. BODY SKIN ASSESSMENT WITH SKIN BREAKDOWN NOTED. PLACED BED IN LOWEST POSITION. BED SIDERAILS UPX2. CALL LIGHT WITHIN REACH.
[2019-02-04] MEDS ORDERED: BISACODYL SUPP (10 MG) 10 MG/SUPP.RECT SUPP.RECT RC PRN (15:30)
[2019-02-04] MEDS ORDERED: ACETAMINOPHEN 325 MG TABLET PO PRN (15:30)
[2019-02-04] MEDS ORDERED: MAG HYDROX/AL HYDROX/SIMETH 30 ML UDC PO PRN (15:30)
[2019-02-04] MEDS ORDERED: Z GUARD REMEDY 2 OZ OINT TP PRN (15:30)
[2019-02-04] MEDS ORDERED: MAGNESIUM HYDROXIDE 30 ML UDC PO PRN (15:30)
[2019-02-04] MEDS ORDERED: NA PHOS,M-B/NA PHOS,DI-BA 1 EA ENEMA RC PRN (15:30)
[2019-02-04] MEDS ORDERED: ONDANSETRON HCL/PF 4 MG/2 ML VIAL IVP PRN (15:30)
[2019-02-04] MEDS ORDERED: HYDROCODONE/APAP 5/325MG 1 EACH TABLET PO PRN (15:30)
[2019-02-04] MEDS: DIVALPROEX SODIUM 500 MG TABLET.DR PO SCH (17:38)
[2019-02-04] MEDS: OLANZAPINE 2.5 MG TABLET PO SCH (17:38)
[2019-02-04] MEDS: ENOXAPARIN SODIUM 40 MG/0.4 ML DISP.SYRIN SQ SCH (17:40)
--- NOTE | 2019-02-04 18:30 | NUR ---
MS RN NOTES NOTED PATIENT PULLED OUT IV PERIPHERAL LINE TO RIGHT HAND. NEW IV SITE TO RIGHT FOREARM # 20 INITIATED, INTACT AND PATENT.
[2019-02-04 18:31] VITALS: BP 103/54
--- NOTE | 2019-02-04 19:39 | NUR ---
MS RN NOTES PATIENT RESTING COMFORTABLY IN BED. REMINDED PATIENT NOT TO PULL OUT NEW IV SITE. HOB ELEVATED. NO SOB. DENIES ANY C/O PAIN NOR DISCOMFORT AT THIS TIME. NO C/O WEAKNESS NOR BURNING SENSATION DURING URINATION. INCONTINENT OF BOWEL AND BLADDER. ATE DINNER WITH [employer]. IV PERIPHERAL LINE TO RT FOREARM INTACT AND PATENT #20 INFUSING NS @50ML/HR EFRAIN WELL. CALL LIGHT WITHIN REACH. BED IN ,LOWEST POSITION BED ALARM ON. ENDORSED TO ONCOMING SHIFT.
[2019-02-04 20:00] VITALS: BP 115/68
--- NOTE | 2019-02-04 22:00 | NUR ---
ms court notes routine meds given and snacks also served. pt tolerated well. IVF still infusing. kept her warm and comfortable at all times. place call light at reach. bed alarm set for pt safety. will continue monitoring.
[2019-02-04] MEDS: DOCUSATE SODIUM 100 MG CAPSULE PO SCH (22:27)
--- NOTE | 2019-02-05 01:43 | NUR ---
ms laborer yard notes pt asleep at this time. continue monitoring.
[2019-02-05] MEDS: IV NS 0.9% 1,000 ML IV PRN (05:26)
--- NOTE | 2019-02-05 07:30 | NUR ---
MS RN NOTES RECEIVED PATIENT IN BED, ASLEEP, AROUSABLE TO VERBAL AND TACTILE STIMULI. HOB ELEVATED. NO SOB OBSERVED. DENIES ANY C/O PAIN NOR DISCOMFORT. RIGHT FOREARM #20 INTACT AND PATENT INFUSING NS @ 75ML/HR EFRAIN WELL. BED IN LOWEST POSITION. CALL LIGHT WITHIN REACH. BED ALARM ON. BED SIDERAILS UP X2. PATIENT PREFERS TO HAVE MAKE UP WITHIN REACH.
[2019-02-05 07:37] LABS: BASOPHILS % (AUTO) 0.3 % (0.0-2.0); HEMATOCRIT 34 % (33-45); HEMOGLOBIN 11.2 g/dL (11.5-14.8); LYMPHOCYTES # (AUTO) 1.2 /CMM (0.8-4.8); LYMPHOCYTES % (AUTO) 13.9 % (20.0-44.0); MEAN CORPUSCULAR HGB CONC 33 g/dl (31.0-36.0); MEAN CORPUSCULAR VOLUME 96 fL (82-100); MONOCYTES # (AUTO) 1.7 /CMM (0.1-1.30); MONOCYTES % (AUTO) 19.7 % (2.0-12.0); NEUTROPHILS # (AUTO) 5.7 /CMM (1.8-8.9); NEUTROPHILS % (AUTO) 66.1 % (43.0-81.0); PLATELET COUNT (AUTO) 164 /CMM (150-450); RED BLOOD CELL COUNT(AUTO) 3.52 MIL/uL (4.0-5.2); WHITE BLOOD COUNT (AUTO) 8.6 K/uL (4.3-11.0)
[2019-02-05 07:39] LABS: CHOLESTEROL 157 mg/dL (<200); HDL CHOLESTEROL 43 mg/dL (40-60); LDL 95 mg/dL (0-99); THYROID STIMULATING HORMONE 0.862 uIU/mL (0.358-3.74); TRIGLYCERIDES 114 mg/dL (30-150)
--- NOTE | 2019-02-05 07:39 | NUR ---
ms geothermal technician closing notes pt back to sleep after morning care done. IVF still infusing on her right forearm. covered with kerlix. stable marley the night and slept well. kept her warm and comfortable at all times. on semi fowlers position with side rails x2 up and bed alarm set for safety. will endorse to am nurse for continuity of care.
[2019-02-05 07:41] LABS: ALANINE AMINOTRANSFERASE 15 U/L (12-78); ALBUMIN 2.2 g/dL (3.4-5.0); ALKALINE PHOSPHATASE 60 U/L (46-116); ASPARTATE AMINOTRANSFERASE 21 U/L (15-37); BILIRUBIN,TOTAL 0.4 mg/dL (0.2-1.0); CARBON DIOXIDE 27 mmol/L (21-32); CHLORIDE 107 mmol/L (98-107); CREATININE 1.4 mg/dL (0.6-1.3); GLUCOSE 106 mg/dL (74-106); MAGNESIUM 1.9 mg/dL (1.8-2.4); PHOSPHORUS 3.3 mg/dL (2.5-4.9); POTASSIUM 3.6 mmol/L (3.5-5.1); SODIUM SERUM 144 mmol/L (136-145); TOTAL PROTEIN, SERUM 6.5 g/dL (6.4-8.2); UREA NITROGEN, BLOOD 19 mg/dL (7-18)
[2019-02-05 08:00] VITALS: BP 110/59
[2019-02-05] MEDS: DOCUSATE SODIUM 100 MG CAPSULE PO SCH ×2 (08:59→21:12)
[2019-02-05] MEDS: CHOLECALCIFEROL (VITAMIN D 3) 400 UNIT TABLET PO SCH (09:00)
[2019-02-05] MEDS: DIVALPROEX SODIUM 500 MG TABLET.DR PO SCH ×2 (09:00→16:44)
[2019-02-05] MEDS: OLANZAPINE 2.5 MG TABLET PO SCH ×2 (09:00→16:44)
[2019-02-05] MEDS: MAGNESIUM OXIDE 400 MG TABLET PO SCH (09:00)
[2019-02-05] MEDS: METOPROLOL SUCCINATE 25 MG TAB.SR.24H PO SCH (09:01)
[2019-02-05] MEDS: CALCIUM CARBONATE 500 MG TAB.CHEW PO SCH (09:01)
[2019-02-05 12:42] LABS: BAND % (MANUAL) 7 % (0.0-5.0); LYMPHOCYTES % (MANUAL) 12 % (16-48); MONOCYTES % (MANUAL) 13 % (0-11.0); NEUTROPHILS % (MANUAL) 68 (42-76)
[2019-02-05] MEDS: AZITHROMYCIN 500 MG in IV D5W 250 ML IV SCH (13:50)
[2019-02-05] MEDS: CEFTRIAXONE 1 G in IV D5W 50 ML IV SCH (15:14)
[2019-02-05 15:37] VITALS: BP 101/54
--- NOTE | 2019-02-05 18:43 | NUR ---
MS RN CLOSING NOTES PATIENT IN BED RESTING COMFORTABLY. APPLIED MAKE-UP TO SELF. HOB ELEVATED. NO S/S OF RESPIRATORY DISTRESS. DENIES ANY C/O PAIN NOR DISCOMFORT. LEFT AC #20 INTACT AND PATENT INFUSING NS @ 75ML/HR EFRAIN WELL. BED IN LOWEST POSITION. CALL LIGHT WITHIN REACH. BED ALARM ON. BED SIDERAILS UP X2. IN NO APPARENT DISTRESS.
--- NOTE | 2019-02-05 19:50 | NUR ---
MS RN NOTE: PATIENT RESTING IN BED, NO ACUTE DISTRESS NOTED. BREATHING EVEN AND UNLABORED, NO SOB NOTED. IV TO LAC IN PLACE, INFUSING NS AT 75ML/HR. BED LOCKED AND IN LOWEST POSITION, CALL LIGHT IN REACH. WILL CONTINUE TO MONITOR.
[2019-02-05 20:00] VITALS: BP 97/55
[2019-02-05] MEDS: ENOXAPARIN SODIUM 40 MG/0.4 ML DISP.SYRIN SQ SCH (21:16)
--- NOTE | 2019-02-06 03:15 | NUR ---
MS RN NOTE: PATIENT SLEEPING IN BED, NO ACUTE DISTRESS NOTED. BREATHING EVEN AND UNLABORED, NO SOB NOTED. IV TO LAC IN PLACE, INFUSING NS AT 75ML/HR. BED ALARM ON. BED LOCKED AND IN LOWEST POSITION, CALL LIGHT IN REACH. WILL CONTINUE TO MONITOR.
--- NOTE | 2019-02-06 06:05 | NUR ---
MS RN NOTE: PATIENT RESTING IN BED, NO ACUTE DISTRESS NOTED. BREATHING EVEN AND UNLABORED, NO SOB NOTED. IV TO LAC IN PLACE, INFUSING NS AT 75ML/HR. BED LOCKED AND IN LOWEST POSITION, CALL LIGHT IN REACH. WILL ENDORSE TO DAY NURSE TO CONTINUE WITH PLAN OF CARE.
[2019-02-06 06:49] LABS: BASOPHILS % (AUTO) 0.3 % (0.0-2.0); CARBON DIOXIDE 27 mmol/L (21-32); CHLORIDE 107 mmol/L (98-107); CREATININE 1.2 mg/dL (0.6-1.3); EOSINOPHILS % (AUTO) 0.2 % (0.0-6.0); GLUCOSE 106 mg/dL (74-106); HEMATOCRIT 32 % (33-45); HEMOGLOBIN 10.4 g/dL (11.5-14.8); LYMPHOCYTES # (AUTO) 0.8 /CMM (0.8-4.8); LYMPHOCYTES % (AUTO) 12.6 % (20.0-44.0); MEAN CORPUSCULAR HGB CONC 33 g/dl (31.0-36.0); MEAN CORPUSCULAR VOLUME 96 fL (82-100); MONOCYTES # (AUTO) 1.1 /CMM (0.1-1.30); NEUTROPHILS # (AUTO) 4.5 /CMM (1.8-8.9); NEUTROPHILS % (AUTO) 69.9 % (43.0-81.0); PLATELET COUNT (AUTO) 152 /CMM (150-450); POTASSIUM 3.6 mmol/L (3.5-5.1); RED BLOOD CELL COUNT(AUTO) 3.31 MIL/uL (4.0-5.2); SODIUM SERUM 144 mmol/L (136-145); UREA NITROGEN, BLOOD 21 mg/dL (7-18); WHITE BLOOD COUNT (AUTO) 6.5 K/uL (4.3-11.0)
--- NOTE | 2019-02-06 07:10 | NUR ---
MS RN NOTES PATIENT IN BED EYES CLOSED, EASY TO AROUSE, RESPOND TO VERBAL AND TACTILE STIMULI. NO FACIAL GRIMACING NOTED. NO ACUTE DISTRESS NOTED. BREATHING UNLABORED. IV ACCESS PATENT AND INTACT. NO REDNESS OR SWELLING NOTED. SAFETY MEASURES IN PLACE. CALL LIGHT WITHIN REACH. WILL CONTINUE TO MONITOR ACCORDINGLY.
[2019-02-06 08:00] VITALS: BP 134/65
[2019-02-06] MEDS: DOCUSATE SODIUM 100 MG CAPSULE PO SCH ×2 (08:46→20:56)
[2019-02-06] MEDS: DIVALPROEX SODIUM 500 MG TABLET.DR PO SCH ×2 (08:47→16:33)
[2019-02-06] MEDS: MAGNESIUM OXIDE 400 MG TABLET PO SCH (08:47)
[2019-02-06] MEDS: CHOLECALCIFEROL (VITAMIN D 3) 400 UNIT TABLET PO SCH (08:47)
[2019-02-06] MEDS: OLANZAPINE 2.5 MG TABLET PO SCH ×2 (08:47→16:33)
[2019-02-06] MEDS: CALCIUM CARBONATE 500 MG TAB.CHEW PO SCH (08:47)
[2019-02-06] MEDS: METOPROLOL SUCCINATE 25 MG TAB.SR.24H PO SCH (08:48)
[2019-02-06 08:50] LABS: BAND % (MANUAL) 3 % (0.0-5.0); LYMPHOCYTES % (MANUAL) 15 % (16-48); MONOCYTES % (MANUAL) 13 % (0-11.0); NEUTROPHILS % (MANUAL) 69 (42-76)
[2019-02-06] MEDS: AZITHROMYCIN 500 MG in IV D5W 250 ML IV SCH (13:59)
[2019-02-06] MEDS: CEFTRIAXONE 1 G in IV D5W 50 ML IV SCH (15:01)
[2019-02-06 15:30] VITALS: BP 125/63
--- NOTE | 2019-02-06 18:54 | NUR ---
MS RN CLOSING NOTES PATIENT IN BED ALERT ORIENTED X 1-2. NO ACUTE DISTRESS NOTED. BREATHING UNLABORED. IV ACCESS PATENT AND INTACT. NO REDNESS OR SWELLING NOTED.DUE MEDICATIONS GIVEN, NO ASE NOTED. NEEDS ATTENDED AND ANTICIPATED. KEPT CLEAN DRY AND COMFORTABLE. REPOSITIONED PER PROTOCOL. SAFETY MEASURES IN PLACE. CALL LIGHT WITHIN REACH. WILL ENDORSE TO NIGHT NURSE FOR CONTINUITY OF CARE.
[2019-02-06 19:16] LABS: APPEARANCE,URINE SL CLOUDY (CLEAR); BILIRUBIN,URINE NEGATIVE (NEGATIVE); BLOOD, URINE 2+ Ery/uL (NEGATIVE); COLOR,URINE YELLOW (YELLOW); KETONES,URINE NEGATIVE (NEGATIVE); LEUKOCYTE ESTERASE ,URINE 3+ (NEGATIVE); NITRITE, URINE NEGATIVE (NEGATIVE); PH,URINE 6.5 (5.0-8.0); PROTEIN,URINE NEGATIVE (NEGATIVE); UGLUCOSE NEGATIVE (NEGATIVE); UROBILINOGEN,URINE 0.2 EU/dL (0.2)
[2019-02-06 19:22] LABS: URINE TOTAL PROTEIN 12.3 mg/dL (0-11.9)
[2019-02-06 19:28] LABS: SQUAMOUS EPITHELIAL CELL,UR Few /HPF (None Seen)
[2019-02-06 19:29] LABS: BACTERIA,URINE Rare /HPF (None Seen); WBC,URINE TOO NUMEROUS TO COUN /HPF (0-3)
[2019-02-06 19:40] LABS: EOSINOPHIL,URINE None Seen
--- NOTE | 2019-02-06 20:05 | NUR ---
MS RN NOTES RECEIVED PATIENT AWAKE IN BED WIT NO DISTRESS NOTED. CALL LIGHT WITHIN REACH. PERIPHERAL LINE INTACT AND PATENT. NO C/O PAIN OR DISCOMFORT. BED IN LOW LOCK SETTING. ROOM FREE OC CLUTTER AND ALL BELONGINGS KEPT NEAR BEDSIDE. WILL CONTINUE TO MONITOR.
[2019-02-06 20:39] VITALS: BP 122/54
[2019-02-06] MEDS: IV NS 0.9% 1,000 ML IV PRN (20:52)
[2019-02-06] MEDS: ENOXAPARIN SODIUM 40 MG/0.4 ML DISP.SYRIN SQ SCH (20:57)
[2019-02-07 06:35] LABS: BASOPHILS % (AUTO) 0.4 % (0.0-2.0); EOSINOPHILS % (AUTO) 1.5 % (0.0-6.0); HEMATOCRIT 32 % (33-45); HEMOGLOBIN 10.7 g/dL (11.5-14.8); LYMPHOCYTES # (AUTO) 0.9 /CMM (0.8-4.8); LYMPHOCYTES % (AUTO) 18.9 % (20.0-44.0); MEAN CORPUSCULAR HGB CONC 33 g/dl (31.0-36.0); MEAN CORPUSCULAR VOLUME 96 fL (82-100); MONOCYTES # (AUTO) 0.7 /CMM (0.1-1.30); MONOCYTES % (AUTO) 14.3 % (2.0-12.0); NEUTROPHILS % (AUTO) 64.9 % (43.0-81.0); PLATELET COUNT (AUTO) 153 /CMM (150-450); RED BLOOD CELL COUNT(AUTO) 3.37 MIL/uL (4.0-5.2); WHITE BLOOD COUNT (AUTO) 4.6 K/uL (4.3-11.0)
--- NOTE | 2019-02-07 06:53 | NUR ---
MS RN NOTES PATIENT ASLEEP IN BED WITH NO DISTRESS NOTED. CALL LIGHT WITHIN REACH. ALL DUE MEDS GIVEN ORDERED WITH NO ASE NOTED. NO FURTHER C/O PAIN OR DISCOMFORT. PERIPHERAL LINE INTACT AND PATENT. ALL BELONGINGS KEPT NEAR BEDSIDE. BED IN LOW LOCK SETTING. WILL ENDORSE TO ONCOMING SHIFT.
[2019-02-07 08:00] VITALS: BP 100/57
[2019-02-07] MEDS: OLANZAPINE 2.5 MG TABLET PO SCH ×2 (08:59→16:26)
[2019-02-07] MEDS: DOCUSATE SODIUM 100 MG CAPSULE PO SCH (08:59)
[2019-02-07] MEDS: MAGNESIUM OXIDE 400 MG TABLET PO SCH (08:59)
[2019-02-07] MEDS: DIVALPROEX SODIUM 500 MG TABLET.DR PO SCH ×2 (08:59→16:26)
[2019-02-07] MEDS: CALCIUM CARBONATE 500 MG TAB.CHEW PO SCH (08:59)
[2019-02-07] MEDS: METOPROLOL SUCCINATE 25 MG TAB.SR.24H PO SCH (09:00)
[2019-02-07] MEDS: CHOLECALCIFEROL (VITAMIN D 3) 400 UNIT TABLET PO SCH (09:00)
[2019-02-07] MEDS: IV NS 0.9% 1,000 ML IV PRN (11:37)
[2019-02-07] MEDS: AZITHROMYCIN 500 MG in IV D5W 250 ML IV SCH (13:58)
[2019-02-07 14:14] LABS: CALCIUM, SERUM 8.2 mg/dL (8.5-10.1); CARBON DIOXIDE 26 mmol/L (21-32); CHLORIDE 110 mmol/L (98-107); CREATININE 1.1 mg/dL (0.6-1.3); GLUCOSE 119 mg/dL (74-106); POTASSIUM 3.7 mmol/L (3.5-5.1); SODIUM SERUM 146 mmol/L (136-145); UREA NITROGEN, BLOOD 17 mg/dL (7-18)
[2019-02-07] MEDS: CEFTRIAXONE 1 G in IV D5W 50 ML IV SCH (14:58)
[2019-02-07 16:00] VITALS: BP 120/58
[2019-02-07] MEDS ORDERED: CEPH-570 PO (16:47)
--- NOTE | 2019-02-07 16:57 | NUR ---
MS RN NOTES SEEN AND EVALUATED BY DR KATHRYN SANDERS.
--- NOTE | 2019-02-07 18:42 | NUR ---
MS RN NOTES PATIENT IN BED ALERT ORIENTED X 1-2. DENIED ANY PAIN. NO ACUTE DISTRESS NOTED. BREATHING UNLABORED. IV ACCESS PATENT AND INTACT. NO REDNESS OR SWELLING NOTED. DUE MEDICATIONS GIVEN, NO ASE NOTED. NEEDS ATTENDED AND ANTICIPATED. KEPT CLEAN DRY AND COMFORTABLE. REPOSITIONED PER PROTOCOL. SAFETY MEASURES IN PLACE. CALL LIGHT WITHIN REACH. PATIENT FOR DISCHARGE TONIGHT ,WILL ENDORSE TO NIGHT NURSE FOR CONTINUITY OF CARE AND DISCHARGE TO [facility].
[2019-02-07 20:00] VITALS: BP 118/82
--- NOTE | 2019-02-07 20:00 | NUR ---
MS RN NOTES RECEIVED PATIENT AWAKE IN BED AND WATCHING TV WITH NO DISTRESS NOTED. CALL LIGHT WITHIN REACH. PERIPHERAL LINE INTACT AND PATENT. NO C/O PAIN OR DISCOMFORT. BED IN LOW LOCK SETTING. ALL BELONGINGS KEPT NEAR BEDSIDE. WILL CONTINUE TO MONITOR.
--- NOTE | 2019-02-07 21:18 | NUR ---
[facility] AND PICKED UP BY [facility]OW[facility] VIA GURNEY. PATIENT IN STABLE CONDITION, A/O X1-2, WITH NO C/O PAIN OF DISCOMFORT. PERIPHERAL LINE IN LAC#20 GAUGE REMOVED AND TOLERATED WELL WITH NO ACTIVE BLEEDING NOTED. ALL BELONGINGS AND DISCHARGE INSTRUCTIONS GIVEN TO TRANSPORTATION. MEDICATION PRESCRIPTION FOR KEFLEX GIVEN IN DISCHARGE PACKET. REPORT GIVEN TO ROBERT ONEAL.
== END 2019-02-07 21:47 | DRG 194 ==
LOC: ER 11:56 → MED 14:48
PROVIDERS: ADMIT Hospitalist; ATTEND Hospitalist
DX: J15.9 Unspecified bacterial pneumonia (principal); E44.0 Moderate protein-calorie malnutrition; K51.90 Ulcerative colitis, unspecified, without complications; J98.11 Atelectasis; N30.00 Acute cystitis without hematuria; E86.0 Dehydration; E78.5 Hyperlipidemia, unspecified; K21.9 Gastro-esophageal reflux disease without esophagitis; I10 Essential (primary) hypertension; F41.9 Anxiety disorder, unspecified; F03.90 Unspecified dementia, unspecified severity, without behavioral disturbance, psychotic disturbance, mood disturbance, and anxiety; I70.0 Atherosclerosis of aorta; Z79.899 Other long term (current) drug therapy; F25.9 Schizoaffective disorder, unspecified
CPT/HCPCS: 36415; 71045-TC; 80048-TC; 80053-TC; 80061-TC; 80076-TC; 81000-TC; 82570-TC; 83605-TC; 83690-TC; 83735-TC; 84100-TC; 84155-TC; 84300-TC; 84443-TC; 84484-TC; 85025-TC; 87040-TC; 87081-TC; 87086-TC; 87186-TC; 97116-TC; 97530-TC; 97535-TC; G0378; J0456; J0696; J1650; J7030; J7060

== ENCOUNTER 2019-03-31 03:40 | Inpatient (IN) | payer MEDICARE, MEDICAID ==
[~2019-03-31] VITALS: Ht 172.7 cm; Wt 98.0 kg
[~2019-03-31 03:40] MED LIST changes: +BISA10SU61 RC; +CALC-494 PO; +CEPH-570 PO; +CHOL10002 PO; -CRAN425C6 PO; +DIVA500T2 PO; -FOLI1TAB16 PO; -MELA3TAB PO; +NA P133E RC; +OLAN7.5T3 PO
--- NOTE | 2019-03-31 03:56 | NUR ---
PRESENTED TO THE ER FOR EVALUATION OF FEVER AND GENERALIZED BODY PAIN X 2 DAYS. CURRENT TEMP: 100.3 ORAL DENIED COUGH. -H/A, -N/V. PLACED ON A MONITOR,
[2019-03-31 04:19] LABS: BASOPHILS % (AUTO) 0.7 % (0.0-2.0); HEMATOCRIT 35 % (33-45); HEMOGLOBIN 11.6 g/dL (11.5-14.8); LYMPHOCYTES # (AUTO) 0.7 /CMM (0.8-4.8); LYMPHOCYTES % (AUTO) 10.5 % (20.0-44.0); MEAN CORPUSCULAR HGB CONC 33 g/dl (31.0-36.0); MEAN CORPUSCULAR VOLUME 97 fL (82-100); MONOCYTES # (AUTO) 0.9 /CMM (0.1-1.30); MONOCYTES % (AUTO) 14.5 % (2.0-12.0); NEUTROPHILS # (AUTO) 4.8 /CMM (1.8-8.9); NEUTROPHILS % (AUTO) 74.3 % (43.0-81.0); PLATELET COUNT (AUTO) 141 /CMM (150-450); RED BLOOD CELL COUNT(AUTO) 3.58 MIL/uL (4.0-5.2); WHITE BLOOD COUNT (AUTO) 6.4 K/uL (4.3-11.0)
[2019-03-31 04:30] LABS: CALCIUM, SERUM 8.3 mg/dL (8.5-10.1); CARBON DIOXIDE 26 mmol/L (21-32); CHLORIDE 103 mmol/L (98-107); CREATININE 1.4 mg/dL (0.6-1.3); GLUCOSE 123 mg/dL (74-106); POTASSIUM 3.7 mmol/L (3.5-5.1); SODIUM SERUM 138 mmol/L (136-145); UREA NITROGEN, BLOOD 17 mg/dL (7-18)
--- NOTE | 2019-03-31 04:37 | NUR ---
URINE COLLECTED AND SENT TO THE LAB
[2019-03-31 04:44] LABS: ALANINE AMINOTRANSFERASE 11 U/L (12-78); ALBUMIN 2.8 g/dL (3.4-5.0); ALKALINE PHOSPHATASE 60 U/L (46-116); ASPARTATE AMINOTRANSFERASE 14 U/L (15-37); BILIRUBIN,DIRECT 0.1 mg/dL (0.0-0.2); BILIRUBIN,TOTAL 0.3 mg/dL (0.2-1.0); TOTAL PROTEIN, SERUM 6.8 g/dL (6.4-8.2)
[2019-03-31 04:48] LABS: APPEARANCE,URINE TURBID (CLEAR); COLOR,URINE YELLOW (YELLOW)
[2019-03-31 04:49] LABS: BILIRUBIN,URINE NEGATIVE (NEGATIVE); BLOOD, URINE 3+ Ery/uL (NEGATIVE); KETONES,URINE NEGATIVE (NEGATIVE); PROTEIN,URINE 3+ mg/dl (NEGATIVE); UGLUCOSE NEGATIVE (NEGATIVE); UROBILINOGEN,URINE 0.2 EU/dL (0.2)
[2019-03-31 04:50] LABS: LEUKOCYTE ESTERASE ,URINE 3+ (NEGATIVE); NITRITE, URINE POSITIVE (NEGATIVE)
[2019-03-31 04:52] LABS: BACTERIA,URINE Many /HPF (None Seen); MUCUS,URINE Few /LPF (None Seen); SQUAMOUS EPITHELIAL CELL,UR Few /HPF (None Seen); WBC,URINE TOO NUMEROUS TO COUN /HPF (0-3)
[2019-03-31] MEDS ORDERED: CEFTRIAXONE 1GM BAG (ER ONLY) 50 ML IV ONE (04:57)
[2019-03-31] MEDS ORDERED: CEFTRIAXONE 1 G in IV D5W 50 ML IV ONE (05:00)
[2019-03-31] MEDS ORDERED: DIVA500T4 PO (05:21)
[2019-03-31] MEDS ORDERED: CHOL200026 PO (05:21)
[2019-03-31] MEDS ORDERED: VANCOMYCIN 1 GM VIAL ONE (05:29)
--- NOTE | 2019-03-31 05:29 | NUR ---
BED ASSIGNMENT MS 327-1
[2019-03-31] MEDS ORDERED: Z GUARD REMEDY 2 OZ OINT TP PRN (05:30)
[2019-03-31] MEDS ORDERED: MAGNESIUM HYDROXIDE 30 ML UDC PO PRN ×2 (05:30→13:30)
[2019-03-31] MEDS ORDERED: ONDANSETRON HCL/PF 4 MG/2 ML VIAL IVP PRN (05:30)
[2019-03-31] MEDS ORDERED: HYDROCODONE/APAP 5/325MG 1 EACH TABLET PO PRN (05:30)
[2019-03-31] MEDS ORDERED: IV NS 0.9% 1,000 ML BAG IV ONE (05:30)
[2019-03-31] MEDS ORDERED: MAG HYDROX/AL HYDROX/SIMETH 30 ML UDC PO PRN ×2 (05:30→13:30)
[2019-03-31] MEDS ORDERED: VANCOMYCIN 1 GM in IV D5W 250 ML IV SCH (05:30)
--- NOTE | 2019-03-31 06:00 | NUR ---
REPORT GIVEN TO RAMIRO ON THIRD FLOOR
--- NOTE | 2019-03-31 06:29 | NUR ---
PT WAS TRANSFERRED TO [place] [id number] IN STABLE CONDITION.
--- NOTE | 2019-03-31 06:50 | NUR ---
ms kiln remover initial notes received pt from ER panfilo coppola accompanied by surgical instrument technician . pt awake and alert with Vancomycin IVP bag infusing at this time. as well 3 liters NS bolus . no signs of any acute distress noted. respiration even and unlabored. in room air. Vital signs as ff. BP 116/61, Resp 20, Pulse 88 Temp 97.7 and o2 sat 96 % in room air. Pt weight 215 .6 lbs by bed scale. kept her warm and comfortable and endorse to am nurse for continuity of care. bed in low and lock in position with side rails x2 up.
--- NOTE | 2019-03-31 07:00 | NUR ---
MS RN OPENING NOTES RECEIVED PATIENT IN BED, ALERT AND AWAKE ORIENTED X2. NO C/O SOB. DENIES ANY C/O PAIN NOR DISCOMFORT. RFA #20 INTACT AND PATENT. DENIES ANY C/O BURNING SENSATION UPON URINATION. PATIENT REQUIRES MAXIMUM ASSISTANCE WITH ADL'S. BED IN LOWEST POSITION, LOCKED. BED SIDERAILS UP X2. BED ALARM ON. CALL LIGHT WITHIN REACH.
[2019-03-31 07:30] VITALS: BP 161/58
[2019-03-31] MEDS ORDERED: NA PHOS,M-B/NA PHOS,DI-BA 1 EA ENEMA RC PRN (13:30)
[2019-03-31] MEDS ORDERED: BISACODYL SUPP (10 MG) 10 MG/SUPP.RECT SUPP.RECT RC PRN (13:30)
[2019-03-31] MEDS: DIVALPROEX SODIUM 250 MG TABLET.DR PO SCH ×2 (13:59→21:20)
[2019-03-31] MEDS: IV NS 0.9% 1,000 ML IV PRN (14:04)
[2019-03-31] MEDS: ACETAMINOPHEN 325 MG TABLET PO PRN (14:11)
[2019-03-31 16:28] VITALS: BP 105/55
[2019-03-31] MEDS ORDERED: DIVALPROEX SODIUM 500 MG TABLET.DR PO SCH (17:00)
[2019-03-31] MEDS: OLANZAPINE 5 MG TABLET PO SCH (17:29)
--- NOTE | 2019-03-31 18:58 | NUR ---
MS RN CLOSING NOTES PATIENT IN BED, ALERT AND AWAKE ORIENTED X2. NO S/S OF RESPIRATORY DISTRESS. DENIES ANY C/O PAIN NOR DISCOMFORT. RFA #20 INTACT AND PATENT INFUSING NS @ 75ML/HR. ABLE TO VERBALIZE NEEDS. BED IN LOWEST POSITION, LOCKED. BED SIDERAILS UP X2. BED ALARM ON. CALL LIGHT WITHIN REACH. IN NO APPARENT DISTRESS.
--- NOTE | 2019-03-31 19:00 | NUR ---
MS EVA INITIAL NOTES RECEIVED REPORT FROM AM NURSE JADYN/RN WHILE DOING OUR ROUNDS AND SEEN PT IN BED ON SEMI FOWLERS POSITION WITH SIDE RAILS X2 UP. PT IS AWAKE AND ALERT WATCHING TV AT THIS TIME. DENIES ANY PAIN OR ANY DISCOMFORT. SHE STILL HAVE IVF OF NS AT 75ML/HR INFUSING ON HER RIGHT FOREARM PATENT AND INTACT. KEPT HER WARM AND COMFORTABLE AT ALL TIMES. RE-ORIENT PT HOW TO USED THE CALL LIGHT SYSTEM AND ENCOURAGE HER TO USE IF SHE NEEDS SOME HELP.PLACE CALL LIGHT AT REACH. WILL CONTINUE MONITORING.
[2019-03-31 20:38] VITALS: BP 130/53
[2019-03-31] MEDS: DOCUSATE SODIUM 100 MG CAPSULE PO SCH (21:20)
--- NOTE | 2019-03-31 22:00 | NUR ---
MS EAV NOTES ROUTINE MEDS GIVEN, PT TOLERATED WELL NO ASPIRATION NOTED. SNACKS ALSO SERVED. IVF STILL INFUSING. KEPT HER WARM AND COMFORTABLE AT ALL TIMES. PLACE CALL LIGHT AT REACH. WILL CONTINUE MONITORING.
--- NOTE | 2019-03-31 23:56 | NUR ---
MS PRINT BINDING WORKER NOTES PT SLEEPING COMFORTABLY IN BED WITHOUT ANY ACUTE DISTRESS NOTED. BREATHING EVEN AND UNLABORED. KEPT HER WARM AND COMFORTABLE AT ALL TIMES. BED IN LOW AND LOCK IN POSITION WITH SIDE RAILS X2 UP AND BED ALARM SET FOR SAFETY. PLACE CALL LIGHT AT REACH. WILL CONTINUE MONITORING.
--- NOTE | 2019-04-01 01:43 | NUR ---
ms tool storage attendant notes pt sleeping , breathing even and non-labored. IVF still infusing. kept her warm and comfortable at all times. bed alarm set for safety.
[2019-04-01] MEDS: IV NS 0.9% 1,000 ML IV PRN ×2 (03:26→20:46)
[2019-04-01] MEDS: CEFTRIAXONE 1 G in IV D5W 50 ML IV SCH (05:28)
[2019-04-01] MEDS ORDERED: VANCOMYCIN 1 GM in IV D5W 250 ML IV SCH (05:30)
--- NOTE | 2019-04-01 06:13 | NUR ---
MS PASTE MIXING SUPERVISOR NOTES PT WOKE UP AND ASKING FOR PAIN MEDICATION AND SHE STATES GENERALIZE PAIN. NORCO TABLET PO GIVEN ORDERED. IVF NS AT 75ML/HR STILL INFUSING. MORNING CARE ALSO DONE. WILL CONTINUE MONITORING.
[2019-04-01 06:17] LABS: BASOPHILS % (AUTO) 0.2 % (0.0-2.0); HEMATOCRIT 31 % (33-45); HEMOGLOBIN 10.2 g/dL (11.5-14.8); LYMPHOCYTES # (AUTO) 0.8 /CMM (0.8-4.8); LYMPHOCYTES % (AUTO) 11.5 % (20.0-44.0); MEAN CORPUSCULAR HGB CONC 33 g/dl (31.0-36.0); MEAN CORPUSCULAR VOLUME 97 fL (82-100); MONOCYTES # (AUTO) 1.1 /CMM (0.1-1.30); MONOCYTES % (AUTO) 15.1 % (2.0-12.0); NEUTROPHILS # (AUTO) 5.3 /CMM (1.8-8.9); NEUTROPHILS % (AUTO) 73.2 % (43.0-81.0); PLATELET COUNT (AUTO) 114 /CMM (150-450); RED BLOOD CELL COUNT(AUTO) 3.15 MIL/uL (4.0-5.2); WHITE BLOOD COUNT (AUTO) 7.3 K/uL (4.3-11.0)
[2019-04-01 06:35] LABS: ALBUMIN 2.1 g/dL (3.4-5.0); BILIRUBIN,TOTAL 0.2 mg/dL (0.2-1.0); CALCIUM, SERUM 7.6 mg/dL (8.5-10.1); MAGNESIUM 1.7 mg/dL (1.8-2.4); PHOSPHORUS 2.5 mg/dL (2.5-4.9); POTASSIUM 3.7 mmol/L (3.5-5.1); TOTAL PROTEIN, SERUM 5.8 g/dL (6.4-8.2)
--- NOTE | 2019-04-01 07:10 | NUR ---
MS RN OPENING NOTES RECEIVED PATIENT IN BED ASLEEP, AROUSABLE. HOB ELEVATED. NO SOB OBSERVED. DENIES ANY C/O PAIN NOR DISCOMFORT AT THIS TIME. RFA #20 INTACT AND PATENT INFUSING NS @ 75ML/HR. BED IN LOWEST POSITION, LOCKED. BED ALARM ON. CALL LIGHT WITHIN REACH. BEDSIDERAILS UP X2.
--- NOTE | 2019-04-01 07:17 | NUR ---
MS ASSOCIATE ACCOUNT MANAGER CLOSING NOTES PT RESTING COMFORTABLY AT THIS TIME. SEEMS NO SIGNS OF ANY DISCOMFORT. SLEPT WELL AND ALL DUE MEDS GIVEN . KEPT HER WARM AND COMFORTABLE AT ALL TIMES. IVF REMAINS INFUSING OF HER RIGHT FOREARM NO REDNESS NOTED. SAFETY PRECAUTION APPLIED AND PLACE CALL LIGHT AT REACH. WILL ENDORSE TO AM NURSE FOR CONTINUITY OF CARE.
[2019-04-01 08:00] VITALS: BP 104/59
[2019-04-01] MEDS: Magnesium 1GM/D5W 100ML PREMIX 100 ML IV SCH ×2 (08:44→11:19)
[2019-04-01] MEDS ORDERED: CHOLECALCIFEROL 800 UNIT PO SCH (09:00)
[2019-04-01] MEDS: DIVALPROEX SODIUM 250 MG TABLET.DR PO SCH ×2 (09:05→20:53)
[2019-04-01] MEDS: CALCIUM CARBONATE 500 MG TAB.CHEW PO SCH (09:05)
[2019-04-01] MEDS: OLANZAPINE 5 MG TABLET PO SCH ×2 (09:05→17:22)
[2019-04-01] MEDS: CHOLECALCIFEROL 1,000 UNIT TABLET (VIT D3) PO SCH (09:05)
[2019-04-01] MEDS: MAGNESIUM OXIDE 400 MG TABLET PO SCH (09:06)
[2019-04-01] MEDS: DOCUSATE SODIUM 100 MG CAPSULE PO SCH ×2 (09:06→20:53)
[2019-04-01 16:00] VITALS: BP 120/63
[2019-04-01] MEDS: ACETAMINOPHEN 325 MG TABLET PO PRN (18:03)
--- NOTE | 2019-04-01 18:26 | NUR ---
MS RN CLOSING NOTES ALERT AND ORIENTED X2. RESTING COMFORTABLY IN BED. DENIES ANY C/O PAIN NOR DISCOMFORT AT THIS TIME. RFA #20 INTACT AND PATENT INFUSING NS @ 75ML/HR EFRAIN WELL. BED IN LOWEST POSITION, LOCKED. BED ALARM ON.ABLE TO VERBALIZE NEEDS. CALL LIGHT WITHIN REACH. BEDSIDERAILS UP X2. IN NO APPARENT DISTRESS.
[2019-04-01 20:00] VITALS: BP 124/62
--- NOTE | 2019-04-01 20:14 | NUR ---
MS RN OPENING NOTES Received patient A/O, x2, awake on semi-Sawyer's position on bed. On RA, no SOB/respiratory distress noted. No complaints of pain/discomfort noted at this time. With peripheral IV line G#20, with NS infusing well @ 75ml/hr as ordered, no s/sx of infiltration noted. Kept on bed clean, dry and comfortable. On fall precautions, call light within easy reach. Will continue to monitor accordingly.
[2019-04-01] MEDS: ZOLPIDEM TARTRATE 5 MG TABLET PO PRN (20:54)
[2019-04-02] MEDS: CEFTRIAXONE 1 G in IV D5W 50 ML IV SCH (04:58)
--- NOTE | 2019-04-02 06:39 | NUR ---
MS RN CLOSING NOTES Patient asleep, easily awaken. No new complaints made within the shift. All nursing needs attended, no new unusualities noted. All due meds given as ordered, no ASE noted. Kept on bed clean, dry and comfortable. On fall precautions, call light within easy reach. Endorsed to the next shift.
--- NOTE | 2019-04-02 07:51 | NUR ---
MS RN OPENING NOTES RECEIVED PT LAYING IN BED, AWAKE, ALERT AND RESPONSIVE. RESPIRATIONS ARE EVEN AND UNLABORED, NOT IN ANY ACUTE DISTRESS NOTED. DENIES ANY PAIN, SOB, N/V. IV SITE TO LFA AND L HAND INTACT, NO INFILTRATION NOTED. DRESSING KEPT CLEAN AND DRY. SAFETY MEASURES ARE IN PLACE. INSTRUCTED PT TO USE CALL LIGHT WHEN ASSISTANCE IS NEEDED, CALL LIGHT IS LEFT WITHIN REACH. WILL MONITOR THROUGHOUT SHIFT FOR CONTINUITY OF CARE.
[2019-04-02 08:00] VITALS: BP 123/59
[2019-04-02] MEDS: DOCUSATE SODIUM 100 MG CAPSULE PO SCH ×2 (08:27→21:01)
[2019-04-02] MEDS: CALCIUM CARBONATE 500 MG TAB.CHEW PO SCH (08:27)
[2019-04-02] MEDS: MAGNESIUM OXIDE 400 MG TABLET PO SCH (08:27)
[2019-04-02] MEDS: OLANZAPINE 5 MG TABLET PO SCH ×2 (08:27→17:26)
[2019-04-02] MEDS: CHOLECALCIFEROL 1,000 UNIT TABLET (VIT D3) PO SCH (08:27)
[2019-04-02] MEDS: DIVALPROEX SODIUM 250 MG TABLET.DR PO SCH ×2 (08:28→21:01)
[2019-04-02 09:45] LABS: BASOPHILS % (AUTO) 0.4 % (0.0-2.0); HEMATOCRIT 32 % (33-45); HEMOGLOBIN 10.4 g/dL (11.5-14.8); LYMPHOCYTES # (AUTO) 0.7 /CMM (0.8-4.8); LYMPHOCYTES % (AUTO) 12.8 % (20.0-44.0); MEAN CORPUSCULAR HGB CONC 33 g/dl (31.0-36.0); MEAN CORPUSCULAR VOLUME 97 fL (82-100); MONOCYTES # (AUTO) 0.6 /CMM (0.1-1.30); MONOCYTES % (AUTO) 10.3 % (2.0-12.0); NEUTROPHILS # (AUTO) 4.3 /CMM (1.8-8.9); NEUTROPHILS % (AUTO) 75.5 % (43.0-81.0); PLATELET COUNT (AUTO) 110 /CMM (150-450); RED BLOOD CELL COUNT(AUTO) 3.24 MIL/uL (4.0-5.2); WHITE BLOOD COUNT (AUTO) 5.7 K/uL (4.3-11.0)
[2019-04-02 09:47] LABS: POTASSIUM 3.8 mmol/L (3.5-5.1)
--- NOTE | 2019-04-02 12:40 | NUR ---
MS RN NOTES-- PT ABLE TO MAKE NEEDS KNOWN. NEEDS MET AND RENDERED. PT DOES NOT APPEAR TO BE IN ANY APPARENT DISTRESS. WILL CONTINUE TO MONITOR.
[2019-04-02 16:00] VITALS: BP 114/56
--- NOTE | 2019-04-02 18:32 | NUR ---
MS RN CLOSING NOTES ALL DUE MEDS GIVEN, NEEDS MET AND RENDERED. PT REMAIN A/O X2-3, AFEBRILE. RESPIRATIONS ARE EVEN AND UNLABORED, NOT IN ANY ACUTE DISTRESS NOTED. PT DENIES ANY PAIN, NO C/O SOB, N/V. IV ACCESS TO LFA AND L HAND INTACT, NO INFILTRATION NOTED. DRESSING KEPT CLEAN AND DRY. IV FLUIDS RUNNING AT 75ML/HR, TOLERATING WELL. SAFETY MEASURES ARE IN PLACE. REMINDED PT TO USE CALL LIGHT WHEN ASSISTANCE IS NEEDED, CALL LIGHT IS LEFT WITHIN REACH. WILL ENDORSE TO NEXT SHIFT FOR CONTINUITY OF CARE.
--- NOTE | 2019-04-02 19:20 | NUR ---
MS/RN NOTES RECEIVED PT. LYING IN BED. PT. IS AWAKE, ALERT AND ORIENTED X 2-3. BREATHING EVEN AND UNLABORED ON ROOM AIR. NO SOB, RESPIRATORY DISTRESS OR COMPLAINTS OF PAIN NOTED AT THIS TIME. PT. WITH LEFT FOREARM 22 GAUGE PERIPHERAL IV PRESENT, PATENT AND INTACT ADMINISTERING TO PT. NS @ 75 ML/HR. PT. WITH LEFT HAND 22 GAUGE IV SALINE LOCK PRESENT, PATENT AND INTACT. BED LOCKED AND IN LOWEST POSITION, SIDE RAILS UP X3, BED ALARM ON, CALL LIGHT WITHIN REACH, WILL CONTINUE TO MONITOR.
[2019-04-02] MEDS: ZOLPIDEM TARTRATE 5 MG TABLET PO PRN (21:01)
[2019-04-02 21:24] VITALS: BP 113/61
[2019-04-03] MEDS: CEFTRIAXONE 1 G in IV D5W 50 ML IV SCH (05:52)
[2019-04-03] MEDS: IV NS 0.9% 1,000 ML IV PRN (05:55)
--- NOTE | 2019-04-03 07:03 | NUR ---
MS/RN NOTES PT. IS LYING IN BED RESTING. BREATHING EVEN AND UNLABORED ON ROOM AIR. NO SOB, RESPIRATORY DISTRESS OR COMPLAINTS OF PAIN NOTED AT THIS TIME. PT. WITH LEFT FOREARM 22 GAUGE PERIPHERAL IV PRESENT, PATENT AND INTACT ADMINISTERING TO PT. NS @ 75 ML/HR. PT. WITH LEFT HAND 22 GAUGE IV SALINE LOCK PRESENT, PATENT AND INTACT. ALL PT. NEEDS MET. PT. OFFLOADED, ASSISTED TO TURN AND REPOSITION Q2H AND NEEDED. BED LOCKED AND IN LOWEST POSITION, SIDE RAILS UP X3, BED ALARM ON, CALL LIGHT WITHIN REACH, WILL ENDORSE TO DAYSHIFT NURSE FOR CONTINUITY OF CARE.
[2019-04-03 07:44] LABS: BASOPHILS % (AUTO) 0.3 % (0.0-2.0); EOSINOPHILS % (AUTO) 1.5 % (0.0-6.0); HEMATOCRIT 29 % (33-45); HEMOGLOBIN 9.8 g/dL (11.5-14.8); LYMPHOCYTES # (AUTO) 0.9 /CMM (0.8-4.8); LYMPHOCYTES % (AUTO) 19.6 % (20.0-44.0); MEAN CORPUSCULAR HGB CONC 33 g/dl (31.0-36.0); MEAN CORPUSCULAR VOLUME 97 fL (82-100); MONOCYTES # (AUTO) 0.8 /CMM (0.1-1.30); MONOCYTES % (AUTO) 16.5 % (2.0-12.0); NEUTROPHILS # (AUTO) 2.9 /CMM (1.8-8.9); NEUTROPHILS % (AUTO) 62.1 % (43.0-81.0); PLATELET COUNT (AUTO) 118 /CMM (150-450); RED BLOOD CELL COUNT(AUTO) 3.02 MIL/uL (4.0-5.2); WHITE BLOOD COUNT (AUTO) 4.6 K/uL (4.3-11.0)
[2019-04-03 07:52] LABS: CALCIUM, SERUM 8.2 mg/dL (8.5-10.1); MAGNESIUM 2.1 mg/dL (1.8-2.4); PHOSPHORUS 3.1 mg/dL (2.5-4.9); POTASSIUM 4.1 mmol/L (3.5-5.1)
[2019-04-03 08:00] VITALS: BP 124/63
[2019-04-03] MEDS: DOCUSATE SODIUM 100 MG CAPSULE PO SCH (08:13)
[2019-04-03] MEDS: DIVALPROEX SODIUM 250 MG TABLET.DR PO SCH (08:13)
[2019-04-03] MEDS: CALCIUM CARBONATE 500 MG TAB.CHEW PO SCH (08:13)
[2019-04-03] MEDS: CHOLECALCIFEROL 1,000 UNIT TABLET (VIT D3) PO SCH (08:13)
[2019-04-03] MEDS: OLANZAPINE 5 MG TABLET PO SCH (08:13)
[2019-04-03] MEDS: MAGNESIUM OXIDE 400 MG TABLET PO SCH (08:13)
--- NOTE | 2019-04-03 08:30 | NUR ---
MS RN NOTES-- PT WAS SEEN AND EXAMINED BY DR. GUERIN.
[2019-04-03] MEDS ORDERED: LEVO500T75 PO (09:59)
--- NOTE | 2019-04-03 13:41 | NUR ---
MS IKMMY NOTES-- CALLED [facility], GAVE REPORT TO KIMMY RODRIGUEZ.
--- NOTE | 2019-04-03 15:20 | NUR ---
MS UNIVERSAL WORKER ASSISTED LIVING NOTE PT DISCHARGE BACK TO [facility]. PT IS A/O X2-3, AFEBRILE. RESPIRATIONS ARE EVEN AND UNLABORED, NOT IN ANY ACUTE DISTRESS NOTED. PUPILS ARE REACTIVE TO LIGHT, BILATERAL HAND CHAIN FORMING MACHINE OPERATOR ARE STRONG AND EQUAL. ABDOMEN IS SOFT AND NONDISTENDED, BOWEL SOUNDS ARE PRESENT IN ALL 4 QUADRANTS UPON AUSCULTATION. DENIES ANY BLADDER DISCOMFORT. PT ABLE TO AMBULATE WITH FWW. DENIES ANY PAIN, SOB, N/V. IV ACCESS REMOVED, APPLIED PRESSURE AND TOLERATED WELL. SKIN IS INTACT, KEPT CLEAN AND DRY. NO SKIN ISSUES NOTED. EXPLAINED DISCHARGE PAPERWORK TO PT, HOWEVER UNABLE TO VERBALIZE AGREEMENT. EXPLAINED DISCHARGE PAPERWORK TO IRENA ONEAL AT [facility]. BEDSIDE ENDORSEMENT GIVEN TO EMT PERSONNEL. ALL BELONGINGS SENT WITH PT. PT P/U BY AMBULANCE VIA GURNEY IN STABLE CONDITION.
== END 2019-04-03 15:21 | DRG 682 ==
LOC: ER 03:42 → MED 05:30
PROVIDERS: ADMIT Internal Medicine; ATTEND Internal Medicine
DX: N17.0 Acute kidney failure with tubular necrosis (principal); E43 Unspecified severe protein-calorie malnutrition; G93.41 Metabolic encephalopathy; N39.0 Urinary tract infection, site not specified; K51.90 Ulcerative colitis, unspecified, without complications; E78.5 Hyperlipidemia, unspecified; E86.0 Dehydration; I10 Essential (primary) hypertension; K21.9 Gastro-esophageal reflux disease without esophagitis; F03.90 Unspecified dementia, unspecified severity, without behavioral disturbance, psychotic disturbance, mood disturbance, and anxiety; F41.9 Anxiety disorder, unspecified; F25.9 Schizoaffective disorder, unspecified; D63.8 Anemia in other chronic diseases classified elsewhere; Z68.32 Body mass index [BMI] 32.0-32.9, adult; B96.1 Klebsiella pneumoniae [K. pneumoniae] as the cause of diseases classified elsewhere; F32.9 Major depressive disorder, single episode, unspecified
CPT/HCPCS: 36415; 71045-TC; 80048-TC; 80053-TC; 80061-TC; 80076-TC; 81000-TC; 83605-TC; 83735-TC; 84100-TC; 84484-TC; 85025-TC; 85730-TC; 87040-TC; 87081-TC; 87086-TC; 87186-TC; 97112-TC; 97116-TC; 97530-TC; 97535-TC; G0378; J0696; J3370; J3475; J7030; J7042; J7060

== ENCOUNTER 2021-12-18 09:11 | Inpatient (IN) | payer MEDICARE, OTHER ==
[~2021-12-18] VITALS: Ht 157.5 cm; Wt 88.9 kg
[~2021-12-18 09:11] MED LIST changes: -CEPH-570 PO; +CHOL200026 PO; +DIVA500T4 PO; +LEVO500T23 PO; -MAGN400T6 PO; +MAGN400T8 PO; -METO-356 PO
--- NOTE | 2021-12-18 09:15 | NUR ---
BIB PA C/O ABDOMINAL PAIN 01/13 X4 DAYS AGO AND HAD A FEVER OF 100.8 RECIEVED 325MG TYLENOL DAMASCENER TEMP 98.9. THE PATIENT IS ALERT AND ORIENTED X2. DENIES PAIN. IN ROOM AIR AND DENIES SOB. RESPIRATION REGULAR AND UNLABORED. THE PATIENT IS ATTACHED TO THE MONITOR. WILL CONTINUE TO MONITOR THE PATIENT.
--- NOTE | 2021-12-18 09:15 | NUR ---
DR GARRIDO MADE AWARE PATIENT TEMP 101.1F. NO NEW ORDERS AT THIS TIME.
--- NOTE | 2021-12-18 10:00 | NUR ---
IV LINE IS ESTABLISHED, BLOOD SPECIMEN COLLECTED AND SENT TO THE LAB. THE LINE IS SALINE LOCKED.
--- NOTE | 2021-12-18 10:03 | NUR ---
COVID ANTIGEN SWAB DONE AND SENT TO THE LAB
--- NOTE | 2021-12-18 10:03 | NUR ---
URINE COLLECTED AND SENT TO THE LAB
[2021-12-18 10:11] LABS: BASOPHILS % (AUTO) 0.3 % (0.0-2.0); HEMATOCRIT 31 % (33-45); HEMOGLOBIN 10.3 g/dL (11.5-14.8); LYMPHOCYTES # (AUTO) 1.4 K/uL (0.8-4.8); LYMPHOCYTES % (AUTO) 11.3 % (20.0-44.0); MEAN CORPUSCULAR HGB CONC 33 g/dl (31.0-36.0); MEAN CORPUSCULAR VOLUME 94 fL (82-100); MONOCYTES # (AUTO) 1.8 K/uL (0.1-1.30); MONOCYTES % (AUTO) 14.3 % (2.0-12.0); NEUTROPHILS # (AUTO) 9.1 K/uL (1.8-8.9); NEUTROPHILS % (AUTO) 74.1 % (43.0-81.0); PLATELET COUNT (AUTO) 348 K/uL (150-450); RED BLOOD CELL COUNT(AUTO) 3.36 MIL/uL (4.0-5.2); WHITE BLOOD COUNT (AUTO) 12.3 K/uL (4.3-11.0)
[2021-12-18] MEDS ORDERED: DIVA125C5 PO (10:12)
[2021-12-18] MEDS ORDERED: ACET-2605 PO (10:12)
[2021-12-18] MEDS ORDERED: METO25TA3 PO (10:12)
[2021-12-18] MEDS ORDERED: CRAN3875 PO (10:12)
--- NOTE | 2021-12-18 10:19 | NUR ---
Myrtle gray in [facility] - 12/18/21 at 1024 by JUDY PT TAKEN TO CT VIA LOGAN
--- NOTE | 2021-12-18 10:21 | NUR ---
THE PATIENT IS TAKEN TO CT VIA RNEY
[2021-12-18 10:22] LABS: CALCIUM, SERUM 8.1 mg/dL (8.5-10.1); CARBON DIOXIDE 30 mmol/L (21-32); CHLORIDE 107 mmol/L (98-107); CREATININE 1.7 mg/dL (0.6-1.3); GLUCOSE 122 mg/dL (74-106); POTASSIUM 4.2 mmol/L (3.5-5.1); SODIUM SERUM 143 mmol/L (136-145); UREA NITROGEN, BLOOD 25 mg/dL (7-18)
[2021-12-18 10:27] LABS: ALANINE AMINOTRANSFERASE 13 U/L (12-78); ALBUMIN 2.4 g/dL (3.4-5.0); ALKALINE PHOSPHATASE 65 U/L (46-116); ASPARTATE AMINOTRANSFERASE 10 U/L (15-37); BILIRUBIN,DIRECT 0.1 mg/dL (0.0-0.2); BILIRUBIN,TOTAL 0.3 mg/dL (0.2-1.0); TOTAL PROTEIN, SERUM 6.9 g/dL (6.4-8.2)
[2021-12-18] MEDS ORDERED: VANCOMYCIN 1 GM in IV D5W 250 ML IV ONE (10:30)
[2021-12-18] MEDS ORDERED: IV NS 0.9% 1,000 ML BAG IV ONE (10:30)
[2021-12-18] MEDS ORDERED: CEFEPIME 1 GM in IV D5W 50 ML IV ONE (10:30)
[2021-12-18 10:33] LABS: BILIRUBIN,URINE NEGATIVE (NEGATIVE); COLOR,URINE YELLOW (YELLOW); LEUKOCYTE ESTERASE ,URINE LARGE (NEGATIVE); NITRITE, URINE NEGATIVE (NEGATIVE); PROTEIN,URINE 100 mg/dl (NEGATIVE); UGLUCOSE NEGATIVE (NEGATIVE); UROBILINOGEN,URINE 0.2 EU/dL (0.2)
[2021-12-18] MEDS ORDERED: NA PHOS,M-B/NA PHOS,DI-BA 1 EA ENEMA RC PRN (11:00)
[2021-12-18] MEDS: IV NS 0.9% 1,000 ML IV SCH (11:00)
[2021-12-18] MEDS ORDERED: Z GUARD REMEDY 4 OZ OINT TP PRN (11:00)
[2021-12-18] MEDS ORDERED: MORPHINE SULFATE INJ 2 MG/ML DISP.SYRIN IV PRN (11:00)
[2021-12-18] MEDS ORDERED: ONDANSETRON HCL/PF 4 MG/2 ML VIAL IVP PRN (11:00)
--- NOTE | 2021-12-18 11:04 | NUR ---
TYLENOL 650 MG PO ONCE PER [address] GARRIDO. THE ORDER IS READ BACK, VERIFIED. NOTED AND CARRIED OUT.
[2021-12-18 11:14] LABS: RBC,URINE TOO NUMEROUS TO COUN /HPF (0-2); WBC,URINE TOO NUMEROUS TO COUN /HPF (0-3)
[2021-12-18 11:18] LABS: BACTERIA,URINE Moderate /HPF (None Seen)
[2021-12-18] MEDS ORDERED: ACETAMINOPHEN 325 MG TABLET ONE (11:18)
[2021-12-18] MEDS ORDERED: ACETAMINOPHEN 325 MG TABLET PO ONE (11:30)
[2021-12-18] MEDS ORDERED: CALCIUM CARBONATE 500 MG TAB.CHEW ONE (11:46)
[2021-12-18] MEDS: CALCIUM CARBONATE (1250) 500 MG TABLET PO SCH (12:02)
--- NOTE | 2021-12-18 15:18 | NUR ---
REPORT GIVEN TO NURSE DIEGO FOR LIANA
[2021-12-18 15:30] VITALS: BP 131/36
--- NOTE | 2021-12-18 15:30 | NUR ---
CUSTOMER SOLUTIONS SPECIALIST NOTE ADMIT 75 YEARS OLD FEMALE ON TELE MONITORING AT ROOM 117 ADMITTING DIAGNOSIS IS UTI/PYELONEPHRITIS,ALERT ORIENTED X2 VERBALLY RESPONSIVE,ON ROOM AIR O2:98% IV SITE IS ON LEFT AC INTACT PATENT ON IV HYDRATION NS 75CC/HR,SAFETY MEASURE IMPLEMENT BED IN LOW POSITION AND LOCKED,BED ALARM IS ON HEAD OF THE BED ELEVATED CONTINUE TO MONITOR.
--- NOTE | 2021-12-18 15:37 | NUR ---
THE PATIENT IS TRANSFERED TO ROOM 117-1 IN STABLE CONDITION AND PER ACLS POLICY.
[2021-12-18 16:00] VITALS: BP 131/36
[2021-12-18] MEDS: OLANZAPINE 2.5 MG TABLET PO SCH (17:19)
[2021-12-18] MEDS: DOCUSATE SODIUM LIQ 100 MG/10 ML UDC PO SCH (17:19)
--- NOTE | 2021-12-18 19:06 | NUR ---
RN CLOSING NOTE ADMIT 75 YEARS OLD FEMALE ON TELE MONITORING AT ROOM 117 ADMITTING DIAGNOSIS IS UTI/PYELONEPHRITIS,ALERT ORIENTED X2 VERBALLY RESPONSIVE,ON ROOM AIR O2:98% IV SITE IS ON LEFT AC INTACT PATENT ON IV HYDRATION NS 75CC/HR, PT IS COOPERATIVE AND CAN FOLLOW DIRECTIONS. NOTED SHIVERING CONTINUOUSLY. SAFETY MEASURE IMPLEMENT BED IN LOW POSITION AND LOCKED,BED ALARM IS ON HEAD OF THE BED ELEVATED CONTINUE TO MONITOR.
[2021-12-18] MEDS: ACETAMINOPHEN 325 MG TABLET PO PRN (19:39)
--- NOTE | 2021-12-18 19:39 | NUR ---
RN NOTES PATIENT NOTED WITH TEMPERATURE OF 101.8, PATIENT STARTED ON COOLING MEASURES. TEMPERATURE AFTER INTERVENTION REMAINS ELEVATED WITH 101.5. WILL ADMINISTER TYLENOL 650MG PRN FOR MILD FEVER AND REASSESS PATIENT.
[2021-12-18 20:00] VITALS: BP 101/62
[2021-12-18] MEDS: DIVALPROEX SODIUM 125 MG CAP.SPRINK PO SCH (20:20)
[2021-12-18] MEDS: HEPARIN SODIUM, PORCINE 5000 UNITS/1 ML VIAL SQ SCH (20:21)
[2021-12-19] VITALS: BP 133/44
[2021-12-19] MEDS: IV NS 0.9% 1,000 ML IV SCH ×2 (00:49→14:06)
[2021-12-19] MEDS: ACETAMINOPHEN 325 MG TABLET PO PRN (02:06)
--- NOTE | 2021-12-19 02:06 | NUR ---
RN NOTES PATIENT NOTED WITH TEMP OF 102.3. PATIENT SHIVERING, HOT TO TOUCH. COOLING TEMPERATURES INEFFECTIVE. WILL ADMINISTER TYLENOL 650MG PRN FOR FEVER AND CONTINUE TO ASSESS PATIENT. CHARGE NURSE IS AWARE OF PATIENT'S TEMPERATURE.
[2021-12-19 04:00] VITALS: BP 100/46
[2021-12-19 06:51] LABS: BASOPHILS % (AUTO) 0.3 % (0.0-2.0); HEMATOCRIT 28 % (33-45); HEMOGLOBIN 9.6 g/dL (11.5-14.8); LYMPHOCYTES # (AUTO) 1.5 K/uL (0.8-4.8); LYMPHOCYTES % (AUTO) 14.6 % (20.0-44.0); MEAN CORPUSCULAR HGB CONC 34 g/dl (31.0-36.0); MEAN CORPUSCULAR VOLUME 93 fL (82-100); MONOCYTES # (AUTO) 1.2 K/uL (0.1-1.30); MONOCYTES % (AUTO) 11.8 % (2.0-12.0); NEUTROPHILS # (AUTO) 7.6 K/uL (1.8-8.9); NEUTROPHILS % (AUTO) 73.3 % (43.0-81.0); PLATELET COUNT (AUTO) 291 K/uL (150-450); RED BLOOD CELL COUNT(AUTO) 3.02 MIL/uL (4.0-5.2); WHITE BLOOD COUNT (AUTO) 10.4 K/uL (4.3-11.0)
--- NOTE | 2021-12-19 06:51 | NUR ---
RN CLOSING NOTES WILL ENDORSE CARE OF PATIENT TO AM NURSE, PATIENT IN BED, PATIENT IS A/O X4, ABLE TO MAKE NEEDS KNOWN. PATIENT IN NO DISCOMFORT OR PAIN AT THIS TIME. FEVER CONTROLLED WITH COOLING MEASURES AND TYLENOL PRN. ALL DUE MEDS GIVEN AND PATIENT NEEDS ATTENDED TO. SAFETY MEASURES IMPLEMENTED PER HOSPITAL PROTOCOLS. WILL ENDORSE TO AM NURSE FOR CONTINUITY OF CARE.
--- NOTE | 2021-12-19 07:10 | NUR ---
RN NOTE RECEIVED PATIENT IN BED RESTING ALERT ORIENTED X2 VERBALLY RESPONSIVE,ON 2L OXYGEN VIA NASAL CANNULA O2:96% IV SITE IS ON LEFT AC INTACT PATENT ON IV HYDRATION NS 75CC/HR,INCONTINENT FANI/BLADDER, SAFETY MEASURE IMPLEMENT BED IN LOW POSITION AND LOCKED,BED ALARM IS ON HEAD OF THE BED ELEVATED CONTINUE TO MONITOR.
[2021-12-19 07:11] LABS: ALANINE AMINOTRANSFERASE < 6 U/L (12-78); ALKALINE PHOSPHATASE 56 U/L (46-116); ASPARTATE AMINOTRANSFERASE 12 U/L (15-37); BILIRUBIN,TOTAL 0.3 mg/dL (0.2-1.0); CALCIUM, SERUM 7.7 mg/dL (8.5-10.1); CARBON DIOXIDE 27 mmol/L (21-32); CHLORIDE 109 mmol/L (98-107); CREATININE 1.2 mg/dL (0.6-1.3); GLUCOSE 106 mg/dL (74-106); MAGNESIUM 1.9 mg/dL (1.8-2.4); PHOSPHORUS 3.5 mg/dL (2.5-4.9); POTASSIUM 3.5 mmol/L (3.5-5.1); SODIUM SERUM 143 mmol/L (136-145); TOTAL PROTEIN, SERUM 6.3 g/dL (6.4-8.2); UREA NITROGEN, BLOOD 21 mg/dL (7-18)
[2021-12-19 08:00] VITALS: BP 102/50
[2021-12-19] MEDS: METOPROLOL SUCCINATE 25 MG TAB.SR.24H PO SCH (09:00)
[2021-12-19] MEDS ORDERED: Medication Not On Formulary EA (Cran/Vitc/Mannose/Inulin/Brom (Uti-Stat Liquid) 3,875 MG PO SCH (09:00)
[2021-12-19] MEDS: DOCUSATE SODIUM LIQ 100 MG/10 ML UDC PO SCH ×2 (09:15→17:12)
[2021-12-19] MEDS: CHOLECALCIFEROL 1,000 UNIT TABLET (VIT D3) PO SCH (09:16)
[2021-12-19] MEDS: MAGNESIUM OXIDE 400 MG TABLET PO SCH (09:16)
[2021-12-19] MEDS: DIVALPROEX SODIUM 125 MG CAP.SPRINK PO SCH ×2 (09:16→20:40)
[2021-12-19] MEDS: HEPARIN SODIUM, PORCINE 5000 UNITS/1 ML VIAL SQ SCH ×2 (09:18→20:41)
[2021-12-19] MEDS: POLYETHYLENE GLYCOL 3350 17 GM POWD.PACK PO SCH (09:18)
[2021-12-19] MEDS: OLANZAPINE 2.5 MG TABLET PO SCH ×2 (09:20→17:12)
[2021-12-19] MEDS: CEFEPIME 1 GM in IV D5W 50 ML IV SCH (11:44)
[2021-12-19] MEDS: CALCIUM CARBONATE (1250) 500 MG TABLET PO SCH (11:44)
[2021-12-19 12:00] VITALS: BP 105/47
[2021-12-19 16:00] VITALS: BP 99/70
[2021-12-19 20:00] VITALS: BP 107/51
[2021-12-20] VITALS: BP 124/55
[2021-12-20] MEDS: IV NS 0.9% 1,000 ML IV SCH (02:02)
[2021-12-20 04:00] VITALS: BP 117/56
--- NOTE | 2021-12-20 06:29 | NUR ---
RN NOTE PATIENT REMAINS ON ALERT ORIENTED X2 VERBALLY RESPONSIVE NO SOB NOT ACUTE DISTRESS NOTED,ALL DUE MEDS GIVEN MD ORDERED KEPT CLEAN AND DRY ALL THE TIME,REPOSITIONED AND TURNED EVERY 2 HOURS ENDORSE NEXT COMING SHIFT FOR CONTINUATION OF CARE.
[2021-12-20 06:36] LABS: BASOPHILS % (AUTO) 0.2 % (0.0-2.0); EOSINOPHILS % (AUTO) 0.3 % (0.0-6.0); HEMATOCRIT 28 % (33-45); HEMOGLOBIN 9.3 g/dL (11.5-14.8); LYMPHOCYTES # (AUTO) 1.4 K/uL (0.8-4.8); LYMPHOCYTES % (AUTO) 16.5 % (20.0-44.0); MEAN CORPUSCULAR HGB CONC 33 g/dl (31.0-36.0); MEAN CORPUSCULAR VOLUME 94 fL (82-100); MONOCYTES # (AUTO) 0.9 K/uL (0.1-1.30); PLATELET COUNT (AUTO) 273 K/uL (150-450); RED BLOOD CELL COUNT(AUTO) 2.98 MIL/uL (4.0-5.2); WHITE BLOOD COUNT (AUTO) 8.3 K/uL (4.3-11.0)
[2021-12-20 07:21] LABS: CALCIUM, SERUM 8.4 mg/dL (8.5-10.1); CARBON DIOXIDE 29 mmol/L (21-32); CHLORIDE 111 mmol/L (98-107); CREATININE 1.1 mg/dL (0.6-1.3); PHOSPHORUS 2.9 mg/dL (2.5-4.9); POTASSIUM 3.7 mmol/L (3.5-5.1); SODIUM SERUM 146 mmol/L (136-145); UREA NITROGEN, BLOOD 16 mg/dL (7-18)
--- NOTE | 2021-12-20 07:35 | NUR ---
RN OPENING NOTE PATIENT IN BED AWAKE, INTERACTIVE, PATIENT IS A/O X4, ABLE TO MAKE NEEDS KNOWN. PATIENT DENIES PAIN, IV LAC #18 NS AT 75/HR. SAFETY MEASURES IMPLEMENTED. SIDE RAILS UP, BED LOCKED, WILL MONITOR / ASSIST
[2021-12-20 07:46] LABS: GLUCOSE 101 mg/dL (74-106)
[2021-12-20 08:00] VITALS: BP 113/61
[2021-12-20] MEDS: OLANZAPINE 2.5 MG TABLET PO SCH ×2 (08:30→16:53)
[2021-12-20] MEDS: CHOLECALCIFEROL 1,000 UNIT TABLET (VIT D3) PO SCH (08:31)
[2021-12-20] MEDS: MAGNESIUM OXIDE 400 MG TABLET PO SCH (08:31)
[2021-12-20] MEDS: DIVALPROEX SODIUM 125 MG CAP.SPRINK PO SCH ×2 (08:31→20:49)
[2021-12-20] MEDS: HEPARIN SODIUM, PORCINE 5000 UNITS/1 ML VIAL SQ SCH ×2 (08:31→20:51)
[2021-12-20] MEDS: METOPROLOL SUCCINATE 25 MG TAB.SR.24H PO SCH (08:32)
[2021-12-20] MEDS: POLYETHYLENE GLYCOL 3350 17 GM POWD.PACK PO SCH (08:32)
[2021-12-20] MEDS: DOCUSATE SODIUM LIQ 100 MG/10 ML UDC PO SCH ×2 (08:33→16:53)
[2021-12-20] MEDS: CALCIUM CARBONATE (1250) 500 MG TABLET PO SCH (11:49)
[2021-12-20] MEDS: CEFEPIME 1 GM in IV D5W 50 ML IV SCH (11:49)
[2021-12-20 12:00] VITALS: BP 115/65
[2021-12-20 16:00] VITALS: BP 104/56
--- NOTE | 2021-12-20 18:40 | NUR ---
RN CLOSING NOTE UNCHANGED FROM EARLIER, PATIENT IN BED AWAKE, INTERACTIVE, PATIENT IS A/O X4, ABLE TO MAKE NEEDS KNOWN. THOUGH SOME CONFUSION PRESENT AT TIMES. PATIENT DENIES PAIN, IV LAC #18. IVF DC'D. SAFETY MEASURES IMPLEMENTED. SIDE RAILS UP, BED LOCKED, WILL MONITOR / ASSIST
--- NOTE | 2021-12-20 19:41 | NUR ---
GLASS CRUSHER OPENING NOTE RECEIVED PATIENT IN BED, EYES OPEN. A/OX1-2. NO S/S OF APPARENT DISTRESS ON 2LPM OF O2 VIA NC. NO C/O PAIN AT THIS TIME. NO FLUIDS RUNNING AT THIS TIME. TELE MONITOR READING NSR WITH 84 BPM. RE-ORIENTED BY THE USE OF CALL LIGHT. SAFETY IN PLACE. WILL CONTINUE WITH PATIENT'S CARE PLAN.
[2021-12-20 20:00] VITALS: BP 129/63
[2021-12-21] VITALS: BP 116/62
[2021-12-21 04:00] VITALS: BP 120/63
--- NOTE | 2021-12-21 07:31 | NUR ---
RN CLOSING NOTE NEEDS ATTENDED. REPORT GIVEN TO AM RN FOR CONTINUITY OF CARE.
--- NOTE | 2021-12-21 07:35 | NUR ---
CATERING TRUCK DRIVER OPENING NOTE RECEIVED PATIENT IN BED, EYES OPEN. A/OX1-2. NO S/S OF APPARENT DISTRESS ON 2LPM OF O2 VIA NC. NO C/O PAIN AT THIS TIME. NO FLUIDS RUNNING AT THIS TIME. TELE MONITOR READING NSR AT 84-85 BPM. RE-ORIENTED BY THE USE OF CALL LIGHT. SAFETY MEASURES IN PLACE. WILL CONTINUE WITH PATIENT'S CARE PLAN.
[2021-12-21 08:00] VITALS: BP 135/65
[2021-12-21] MEDS: DOCUSATE SODIUM LIQ 100 MG/10 ML UDC PO SCH (08:43)
[2021-12-21] MEDS: POLYETHYLENE GLYCOL 3350 17 GM POWD.PACK PO SCH (08:43)
[2021-12-21] MEDS: DIVALPROEX SODIUM 125 MG CAP.SPRINK PO SCH (08:44)
[2021-12-21] MEDS: METOPROLOL SUCCINATE 25 MG TAB.SR.24H PO SCH (08:44)
[2021-12-21] MEDS: MAGNESIUM OXIDE 400 MG TABLET PO SCH (08:45)
[2021-12-21] MEDS: CHOLECALCIFEROL 1,000 UNIT TABLET (VIT D3) PO SCH (08:45)
[2021-12-21] MEDS: HEPARIN SODIUM, PORCINE 5000 UNITS/1 ML VIAL SQ SCH (08:47)
[2021-12-21] MEDS: OLANZAPINE 2.5 MG TABLET PO SCH (08:52)
[2021-12-21] MEDS ORDERED: NITR100C15 PO (08:59)
[2021-12-21] MEDS ORDERED: NITROFURANTOIN/MONOHYDRATE MACROCRYSTALS 100 MG CAPSULE PO SCH (09:00)
[2021-12-21] MEDS: CALCIUM CARBONATE (1250) 500 MG TABLET PO SCH (11:16)
[2021-12-21 12:00] VITALS: BP 121/63
--- NOTE | 2021-12-21 14:31 | NUR ---
WAGE AND HOUR INVESTIGATORSHEET FINISHER NOTES REVIEWED DISCHARGE INSTRUCTIONS/REPORT WITH SMITHA RN FROM [facility]. PT DISCHARGED VIA STRETCHER WITH BELONGINGS, PRESCRIPTION AND INSTRUCTIONS. IV AND TELEMETRY PREVIOUSLY DISCONTINUED. PT LEFT HOSPITAL TO [facility]. V/S: T 97.1, HR 61, RR 16, O2SAT 100, BP 135/65.
== END 2021-12-21 20:10 | DRG 871 ==
LOC: ER 09:15 → TRANSITION 11:59 → TELE1 15:06
PROVIDERS: ADMIT Internal Medicine; ATTEND Internal Medicine
DX: A41.9 Sepsis, unspecified organism (principal); N17.0 Acute kidney failure with tubular necrosis; G93.41 Metabolic encephalopathy; E44.0 Moderate protein-calorie malnutrition; N12 Tubulo-interstitial nephritis, not specified as acute or chronic; K51.90 Ulcerative colitis, unspecified, without complications; F03.90 Unspecified dementia, unspecified severity, without behavioral disturbance, psychotic disturbance, mood disturbance, and anxiety; I70.0 Atherosclerosis of aorta; I12.9 Hypertensive chronic kidney disease with stage 1 through stage 4 chronic kidney disease, or unspecified chronic kidney disease; Z79.899 Other long term (current) drug therapy; N30.90 Cystitis, unspecified without hematuria; N18.9 Chronic kidney disease, unspecified; D63.8 Anemia in other chronic diseases classified elsewhere; E78.5 Hyperlipidemia, unspecified; E88.09 Other disorders of plasma-protein metabolism, not elsewhere classified; G40.909 Epilepsy, unspecified, not intractable, without status epilepticus; F25.9 Schizoaffective disorder, unspecified; B96.20 Unspecified Escherichia coli [E. coli] as the cause of diseases classified elsewhere
CPT/HCPCS: 36415; 71045-TC; 80048-TC; 80053-TC; 80076-TC; 81001; 83605-TC; 83735-TC; 84100-TC; 84484-TC; 85025-TC; 85730-TC; 87040-TC; 87081-TC; 87086-TC; 87186-TC; 94799-TC; C9803; G0378; J0692; J1644; J3370; J7030; J7040; J7060

== ENCOUNTER 2022-12-07 15:20 | Emergency (ER) | payer MEDICARE, OTHER ==
[~2022-12-07] VITALS: Ht 170.2 cm; Wt 94.8 kg
[~2022-12-07 15:20] MED LIST changes: +ACET-2605 PO; -CHOL200026 PO; +CRAN3875 PO; +DIVA125C5 PO; -DIVA500T2 PO; -DIVA500T4 PO; -LEVO500T23 PO; +METO25TA3 PO; +NITR100C15 PO
--- NOTE | 2022-12-07 15:55 | NUR ---
BIBPA FROM SNF FOR SOB AND GENERALIZED ABDOMINAL PAIN THIS MORNING. SOFT SPOKEN AOX2, IN NC AT 2L.
--- NOTE | 2022-12-07 16:17 | NUR ---
IV LINE ESTABLISHED, BLOOD SPECIMEN COLLECTED AND SENT TO THE LAB. THE LINE IS SALINE LOCKED.
--- NOTE | 2022-12-07 16:26 | NUR ---
iv inserted lt ac BLD DRAWN, SENT TO LAB.
--- NOTE | 2022-12-07 16:26 | NUR ---
RAPID INF AND COVID SWAB DONE, SENT TO LAB
[2022-12-07 16:33] LABS: BASOPHILS % (AUTO) 0.3 % (0.0-2.0); EOSINOPHILS % (AUTO) 0.3 % (0.0-6.0); HEMATOCRIT 37 % (33-45); HEMOGLOBIN 11.8 g/dL (11.5-14.8); LYMPHOCYTES % (AUTO) 16.6 % (20.0-44.0); MEAN CORPUSCULAR HGB CONC 32 g/dl (31.0-36.0); MEAN CORPUSCULAR VOLUME 94 fL (82-100); MONOCYTES # (AUTO) 0.8 K/uL (0.1-1.30); MONOCYTES % (AUTO) 12.4 % (2.0-12.0); NEUTROPHILS # (AUTO) 4.3 K/uL (1.8-8.9); NEUTROPHILS % (AUTO) 70.4 % (43.0-81.0); PLATELET COUNT (AUTO) 159 K/uL (150-450); RED BLOOD CELL COUNT(AUTO) 3.93 MIL/uL (4.0-5.2); WHITE BLOOD COUNT (AUTO) 6.1 K/uL (4.3-11.0)
[2022-12-07 16:43] LABS: CALCIUM, SERUM 8.9 mg/dL (8.5-10.1); CARBON DIOXIDE 32 mmol/L (21-32); CHLORIDE 104 mmol/L (98-107); CREATININE 1.2 mg/dL (0.6-1.3); GLUCOSE 126 mg/dL (74-106); POTASSIUM 4.4 mmol/L (3.5-5.1); SODIUM SERUM 139 mmol/L (136-145); UREA NITROGEN, BLOOD 28 mg/dL (7-18)
[2022-12-07 16:56] LABS: ALANINE AMINOTRANSFERASE 14 U/L (12-78); ALKALINE PHOSPHATASE 90 U/L (46-116); ASPARTATE AMINOTRANSFERASE 9 U/L (15-37); BILIRUBIN,DIRECT 0.1 mg/dL (0.0-0.2); BILIRUBIN,TOTAL 0.5 mg/dL (0.2-1.0); TOTAL PROTEIN, SERUM 7.5 g/dL (6.4-8.2)
--- NOTE | 2022-12-07 17:37 | NUR ---
Patient is resting comfortably in bed with eyes closed. Easily aroused. VSS
--- NOTE | 2022-12-07 18:21 | NUR ---
FULL DIET PER DR YOLANDA BRODERICK
--- NOTE | 2022-12-07 19:57 | NUR ---
SET UP BLS TRANSPORT FOR PT TO GO BACK TO FACILITY. PER [facility] ETA IS IN 30 - 45 MINS.
--- NOTE | 2022-12-07 20:12 | NUR ---
Myrtle gray in EDM - 12/07/22 at 2014 by RL Dolores given to Nurse Maldonado at [facility] [place] with all questions answered. pt's oxygen saturation is 95% on RA.
--- NOTE | 2022-12-07 20:15 | NUR ---
Report given to Nurse Maldonado at [facility] with all questions answered. pt's oxygen saturation is 95% on RA.
--- NOTE | 2022-12-07 20:42 | NUR ---
Patient discharged to home in stable condition. Written and verbal after care instructions given. Patient verbalizes understanding of instruction. Addendum: 12/07/22 at 2109 by RL Patient discharged to back to SNF via ambulance in stable condition. oxygen saturation 94-95% on RA. Written and verbal after care instructions given to patient and ambulance practitioners.
[2022-12-07 21:14] VITALS: BP 130/62
== END 2022-12-07 21:15 ==
LOC: ER 15:23
DX: R06.02 Shortness of breath (principal); J06.9 Acute upper respiratory infection, unspecified; I10 Essential (primary) hypertension; Z79.899 Other long term (current) drug therapy; R07.89 Other chest pain; Z20.822 Contact with and (suspected) exposure to COVID-19
CPT/HCPCS: 36415; 71045-TC; 80048-TC; 80076-TC; 83880; 84484-TC; 85025-TC; C9803

== ENCOUNTER 2023-11-13 17:21 | Inpatient (IN) | payer MEDICARE, OTHER ==
[~2023-11-13] VITALS: Ht 165.1 cm; Wt 100.7 kg
[2023-11-13] MEDS ORDERED: ONDANSETRON HCL/PF 4 MG/2 ML VIAL ONE (18:12)
[2023-11-13] MEDS: IV NS 0.9% 500 ML BAG IV ONE (18:17)
[2023-11-13] MEDS ORDERED: OMEG-167 PO (18:18)
[2023-11-13] MEDS: ONDANSETRON HCL/PF 4 MG/2 ML VIAL IVP ONE (18:18)
[2023-11-13] MEDS ORDERED: CHOL400T28 PO (18:18)
[2023-11-13] MEDS ORDERED: POLY15DR17 EACHEYE (18:18)
[2023-11-13 18:33] LABS: BASOPHILS % (AUTO) 0.1 % (0.0-2.0); EOSINOPHILS # (AUTO) 0.4 K/uL (0.0-0.7); EOSINOPHILS % (AUTO) 9.2 % (0.0-6.0); HEMATOCRIT 38 % (33-45); HEMOGLOBIN 12.3 g/dL (11.5-14.8); LYMPHOCYTES # (AUTO) 0.2 K/uL (0.8-4.8); LYMPHOCYTES % (AUTO) 3.9 % (20.0-44.0); MEAN CORPUSCULAR HEMOGLOBIN 30 PG (26.0-33.0); MEAN CORPUSCULAR HGB CONC 32 g/dl (31.0-36.0); MEAN CORPUSCULAR VOLUME 94 fL (82-100); MONOCYTES # (AUTO) 0.1 K/uL (0.1-1.30); MONOCYTES % (AUTO) 2.4 % (2.0-12.0); NEUTROPHILS # (AUTO) 3.5 K/uL (1.8-8.9); NEUTROPHILS % (AUTO) 84.4 % (43.0-81.0); PLATELET COUNT (AUTO) 188 K/uL (150-450); RED BLOOD CELL COUNT(AUTO) 4.08 MIL/uL (4.0-5.2); RED CELL DISTRIBUTION WIDTH 15.8 % (11.5-15.0); WHITE BLOOD COUNT (AUTO) 4.2 K/uL (4.3-11.0)
[2023-11-13 18:45] LABS: CALCIUM, SERUM 8.4 mg/dL (8.5-10.1); CARBON DIOXIDE 27 mmol/L (21-32); CHLORIDE 108 mmol/L (98-107); CREATININE 1.5 mg/dL (0.6-1.3); GLUCOSE 135 mg/dL (74-106); POTASSIUM 4.4 mmol/L (3.5-5.1); SODIUM SERUM 145 mmol/L (136-145); UREA NITROGEN, BLOOD 33 mg/dL (7-18)
[2023-11-13 18:51] LABS: ALANINE AMINOTRANSFERASE 9 U/L (12-78); ALBUMIN 2.7 g/dL (3.4-5.0); ALKALINE PHOSPHATASE 76 U/L (46-116); ASPARTATE AMINOTRANSFERASE 10 U/L (15-37); BILIRUBIN,DIRECT 0.1 mg/dL (0.0-0.2); BILIRUBIN,TOTAL 0.3 mg/dL (0.2-1.0); LIPASE 64 U/L (16-77); TOTAL PROTEIN, SERUM 7.5 g/dL (6.4-8.2)
[2023-11-13] MEDS: methylPREDNISolone SOD SUCC 125 MG/2ML VIAL IV ONE (19:07)
[2023-11-13 19:26] VITALS: O2SAT 93
[2023-11-13] MEDS: ALBUTEROL FS 2.5 MG/3 ML VIAL.NEB CONTNEB ONE (19:26)
[2023-11-13] MEDS: IPRATROPIUM NEB FS 0.5 MG/2.5 ML AMPUL.NEB NEB ONE (19:26)
[2023-11-13 19:43] LABS: LACTIC ACID 2.4 mmol/L (0.4-2.0)
[2023-11-13 20:09] LABS: BILIRUBIN,URINE Negative (NEGATIVE); BLOOD, URINE Large Ery/uL (NEGATIVE); COLOR,URINE YELLOW (YELLOW); KETONES,URINE Negative (NEGATIVE); LEUKOCYTE ESTERASE ,URINE Small (NEGATIVE); NITRITE, URINE Negative (NEGATIVE); PH,URINE 5.5 (5.0-8.0); PROTEIN,URINE 100 mg/dl (NEGATIVE); UGLUCOSE Negative (NEGATIVE); UROBILINOGEN,URINE 0.2 EU/dL (0.2)
[2023-11-13 20:19] LABS: APPEARANCE,URINE HAZY (CLEAR)
[2023-11-13 20:26] VITALS: O2SAT 96
[2023-11-13] MEDS ORDERED: MAG HYDROX/AL HYDROX/SIMETH 30 ML UDC PO PRN ×2 (20:30)
[2023-11-13] MEDS ORDERED: Z GUARD REMEDY 4 OZ OINT TP PRN (20:30)
[2023-11-13] MEDS ORDERED: ZOLPIDEM TARTRATE 5 MG TABLET PO PRN (20:30)
[2023-11-13] MEDS ORDERED: MAGNESIUM HYDROXIDE 30 ML UDC PO PRN (20:30)
[2023-11-13] MEDS ORDERED: ONDANSETRON HCL/PF 4 MG/2 ML VIAL IVP PRN (20:30)
[2023-11-13] MEDS ORDERED: ACETAMINOPHEN 325 MG TABLET PO PRN (20:30)
[2023-11-13] MEDS ORDERED: CEFTRIAXONE 1 G in IV D5W 50 ML IV SCH (20:30)
[2023-11-13] MEDS ORDERED: PIPERACILLIN /TAZOBACTAM 3.375 G in IV D5W 50 ML IV ONE (20:30)
[2023-11-13] MEDS: VANCOMYCIN 1 GM in IV D5W 250 ML IV ONE (20:31)
[2023-11-13] MEDS: IV NS 0.9% 1,000 ML BAG IV ONE (20:31)
[2023-11-13] MEDS ORDERED: VANCOMYCIN 1 GM /D5W 250 ML PB IV ONE (20:34)
[2023-11-13 20:56] LABS: ADD URINE CULTURE YES; BACTERIA,URINE FEW /HPF (None Seen); MUCUS,URINE Few /LPF (None Seen); SQUAMOUS EPITHELIAL CELL,UR Few /HPF (None Seen); WBC,URINE 81-100 /HPF (0-3)
[2023-11-13] MEDS: DOCUSATE SODIUM 100 MG CAPSULE PO SCH (21:00)
[2023-11-13] MEDS ORDERED: PIPERACI/TAZO 3.375GM/D5W 50ML PB IV ONE (22:00)
[2023-11-13] MEDS: PIPERACILLIN /TAZOBACTAM 3.375 G in IV D5W 50 ML IV ONE (22:01)
[2023-11-13 23:02] VITALS: BP 106/89; TEMP 98.4; O2SAT 93
[2023-11-13] MEDS: IV NS 0.9% 1,000 ML IV PRN (23:19)
[2023-11-13] MEDS: CEFTRIAXONE 1 G in IV D5W 50 ML IV SCH (23:43)
[2023-11-13] MEDS: CEFTRIAXONE 1GM BAG (ER ONLY) 50 ML IV ONE (23:47)
[2023-11-14] VITALS (12 sets, daily range): BP systolic 103–116; BP diastolic 49–89; TEMP 98–98.6; O2SAT 92–96
[2023-11-14] MEDS ORDERED: AZITHROMYCIN 500 MG VIAL ONE (00:15)
[2023-11-14] MEDS: AZITHROMYCIN 500 MG in IV D5W 250 ML IV SCH (01:14)
[2023-11-14] MEDS: methylPREDNISolone SOD SUCC 40 MG/ML VIAL IV SCH (05:20)
[2023-11-14] MEDS: ALBUTEROL FS 2.5 MG/3 ML VIAL.NEB NEB SCH (05:37)
[2023-11-14] MEDS: IPRATROPIUM NEB FS 0.5 MG/2.5 ML AMPUL.NEB NEB SCH (05:37)
[2023-11-14] MEDS: DIVALPROEX SODIUM 125 MG CAP.SPRINK PO SCH (08:30)
[2023-11-14] MEDS: METOPROLOL SUCCINATE 25 MG TAB.SR.24H PO SCH (08:31)
[2023-11-14] MEDS: OLANZAPINE 5 MG TABLET PO SCH (08:31)
[2023-11-14] MEDS: CHOLECALCIFEROL (VITAMIN D 3) 400 UNIT TABLET PO SCH (08:31)
[2023-11-14] MEDS: POLYVINYL ALCOHOL 15 ML BOTTLE EACHEYE SCH (09:00)
[2023-11-14] MEDS ORDERED: Medication Not On Formulary EA (Omega-3 Fatty Acids/Fish Oil (Fish Oil 1,000 Mg Softgel) PO SCH (09:00)
[2023-11-14] MEDS ORDERED: Medication Not On Formulary EA (Cran/Vitc/Mannose/Inulin/Brom (Uti-Stat Liquid) 30 ML) PO SCH (09:00)
[2023-11-14] MEDS: CALCIUM CARBONATE 500 MG TAB.CHEW PO SCH (11:55)
[2023-11-14] MEDS: ENOXAPARIN SODIUM 30 MG/0.3 ML DISP.SYRIN SQ SCH (12:33)
[2023-11-15] VITALS (18 sets, daily range): BP systolic 113–133; BP diastolic 55–81; TEMP 97.3–98.6; O2SAT 92–99
[2023-11-15 11:31] LABS: BASOPHILS % (AUTO) 0.1 % (0.0-2.0); HEMATOCRIT 33 % (33-45); HEMOGLOBIN 10.6 g/dL (11.5-14.8); LYMPHOCYTES # (AUTO) 0.5 K/uL (0.8-4.8); LYMPHOCYTES % (AUTO) 5.9 % (20.0-44.0); MEAN CORPUSCULAR HEMOGLOBIN 30 PG (26.0-33.0); MEAN CORPUSCULAR HGB CONC 32 g/dl (31.0-36.0); MEAN CORPUSCULAR VOLUME 96 fL (82-100); MONOCYTES # (AUTO) 0.4 K/uL (0.1-1.30); MONOCYTES % (AUTO) 4.6 % (2.0-12.0); NEUTROPHILS # (AUTO) 7.2 K/uL (1.8-8.9); NEUTROPHILS % (AUTO) 89.4 % (43.0-81.0); PLATELET COUNT (AUTO) 176 K/uL (150-450); RED BLOOD CELL COUNT(AUTO) 3.49 MIL/uL (4.0-5.2); RED CELL DISTRIBUTION WIDTH 16.3 % (11.5-15.0); WHITE BLOOD COUNT (AUTO) 8.1 K/uL (4.3-11.0)
[2023-11-15 12:06] LABS: ALANINE AMINOTRANSFERASE 14 U/L (12-78); ALBUMIN 2.3 g/dL (3.4-5.0); ALKALINE PHOSPHATASE 60 U/L (46-116); ASPARTATE AMINOTRANSFERASE 10 U/L (15-37); BILIRUBIN,TOTAL 0.2 mg/dL (0.2-1.0); CALCIUM, SERUM 7.6 mg/dL (8.5-10.1); CARBON DIOXIDE 24 mmol/L (21-32); CHLORIDE 111 mmol/L (98-107); CREATININE 1.4 mg/dL (0.6-1.3); GLUCOSE 192 mg/dL (74-106); MAGNESIUM 2.1 mg/dL (1.8-2.4); PHOSPHORUS 2.6 mg/dL (2.5-4.9); POTASSIUM 3.8 mmol/L (3.5-5.1); SODIUM SERUM 145 mmol/L (136-145); TOTAL PROTEIN, SERUM 6.3 g/dL (6.4-8.2); UREA NITROGEN, BLOOD 31 mg/dL (7-18)
[2023-11-15 13:21] LABS: CREATINE KINASE, TOTAL 45 U/L (26-192)
[2023-11-15] MEDS: ACETAMINOPHEN 325 MG TABLET PO PRN (21:21)
[2023-11-16] VITALS (15 sets, daily range): BP systolic 108–131; BP diastolic 57–78; TEMP 97.6–98.5; O2SAT 95–100
[2023-11-16] MEDS ORDERED: methylPREDNISolone SOD SUCC 40 MG/ML VIAL IV SCH (12:00)
[2023-11-16] MEDS: methylPREDNISolone SOD SUCC 40 MG/ML VIAL IV SCH ×2 (14:13→17:42)
[2023-11-17] VITALS (7 sets, daily range): BP systolic 129–137; BP diastolic 61–78; TEMP 97–98.9; O2SAT 96–99
[2023-11-17 14:07] LABS: *SPE A/G RATIO 0.9 (0.7-1.7); *SPE ALBUMIN 2.8 g/dL (2.9-4.4); *SPE ALPHA-1-GLOBULIN 0.3 g/dL (0.0-0.4); *SPE ALPHA-2-GLOBULIN 0.8 g/dL (0.4-1.0); *SPE BETA GLOBULIN 1.2 g/dL (0.7-1.3); *SPE GLOBULIN, TOTAL 3.2 g/dL (2.2-3.9); *SPE M-SPIKE Not Observed g/dL (Not Observed)
[2023-11-18 01:12] LABS: PTH, INTACT 82 pg/mL (15-65)
== END 2023-11-17 16:50 | DRG 391 ==
LOC: ER 18:15 → TELE1 22:02
PROVIDERS: ADMIT Nurse Practitioner Acute Care; ATTEND Internal Medicine
PROC: 05HB33Z Insertion of Infusion Device into Right Basilic Vein, Percutaneous Approach (ICD-10-PCS; principal; 2023-11-16)
DX: A09 Infectious gastroenteritis and colitis, unspecified (principal); J96.01 Acute respiratory failure with hypoxia; N17.0 Acute kidney failure with tubular necrosis; J44.1 Chronic obstructive pulmonary disease with (acute) exacerbation; E44.0 Moderate protein-calorie malnutrition; F03.93 Unspecified dementia, unspecified severity, with mood disturbance; F03.918 Unspecified dementia, unspecified severity, with other behavioral disturbance; E87.20 Acidosis, unspecified; F03.92 Unspecified dementia, unspecified severity, with psychotic disturbance; J44.0 Chronic obstructive pulmonary disease with (acute) lower respiratory infection; K51.90 Ulcerative colitis, unspecified, without complications; A08.4 Viral intestinal infection, unspecified; Z20.822 Contact with and (suspected) exposure to COVID-19; I10 Essential (primary) hypertension; I70.0 Atherosclerosis of aorta; Z79.899 Other long term (current) drug therapy; E78.5 Hyperlipidemia, unspecified; E86.9 Volume depletion, unspecified; E88.09 Other disorders of plasma-protein metabolism, not elsewhere classified; E66.9 Obesity, unspecified; Z68.36 Body mass index [BMI] 36.0-36.9, adult; J20.9 Acute bronchitis, unspecified; E86.0 Dehydration; G47.33 Obstructive sleep apnea (adult) (pediatric); F29 Unspecified psychosis not due to a substance or known physiological condition; F20.9 Schizophrenia, unspecified; K21.9 Gastro-esophageal reflux disease without esophagitis; Z87.891 Personal history of nicotine dependence
CPT/HCPCS: 36415; 71045-TC; 80048-TC; 80053-TC; 80076-TC; 81001; 82550-TC; 82962-TC; 83605-TC; 83690-TC; 83735-TC; 83970; 84100-TC; 84155; 84165; 84484-TC; 85025-TC; 87040-TC; 87081-TC; 87086-TC; 92526; 92611-TC; 94760-TC; 94761-TC; 94799-TC; A4223; G0378; J0456; J0696; J1650; J2405; J2543; J2919; J3370; J3490; J7030; J7040; J7060

== ENCOUNTER 2024-05-01 19:37 | Inpatient (IN) | payer MEDICARE, OTHER ==
[~2024-05-01] VITALS: Ht 157.5 cm; Wt 98.9 kg
[~2024-05-01 19:37] MED LIST changes: -CHOL10002 PO; +CHOL400T28 PO; -NITR100C15 PO; +OMEG-167 PO; +POLY15DR17 EACHEYE
[2024-05-01 21:36] LABS: BASOPHILS % (AUTO) 0.2 % (0.0-2.0); EOSINOPHILS % (AUTO) 0.2 % (0.0-6.0); HEMATOCRIT 31 % (33-45); HEMOGLOBIN 10.4 g/dL (11.5-14.8); LYMPHOCYTES # (AUTO) 0.7 K/uL (0.8-4.8); LYMPHOCYTES % (AUTO) 14.4 % (20.0-44.0); MEAN CORPUSCULAR HEMOGLOBIN 32 PG (26.0-33.0); MEAN CORPUSCULAR HGB CONC 33 g/dl (31.0-36.0); MEAN CORPUSCULAR VOLUME 95 fL (82-100); MONOCYTES # (AUTO) 0.6 K/uL (0.1-1.30); NEUTROPHILS # (AUTO) 3.3 K/uL (1.8-8.9); NEUTROPHILS % (AUTO) 72.2 % (43.0-81.0); PLATELET COUNT (AUTO) 165 K/uL (150-450); RED BLOOD CELL COUNT(AUTO) 3.31 MIL/uL (4.0-5.2); RED CELL DISTRIBUTION WIDTH 14.9 % (11.5-15.0); WHITE BLOOD COUNT (AUTO) 4.6 K/uL (4.3-11.0)
[2024-05-01 21:44] LABS: CALCIUM, SERUM 8.2 mg/dL (8.5-10.1); CARBON DIOXIDE 30 mmol/L (21-32); CHLORIDE 107 mmol/L (98-107); CREATININE 1.6 mg/dL (0.6-1.3); GLUCOSE 107 mg/dL (74-106); POTASSIUM 4.6 mmol/L (3.5-5.1); SODIUM SERUM 143 mmol/L (136-145); UREA NITROGEN, BLOOD 32 mg/dL (7-18)
[2024-05-01 21:50] LABS: ALANINE AMINOTRANSFERASE 10 U/L (12-78); ALBUMIN 2.5 g/dL (3.4-5.0); ALKALINE PHOSPHATASE 62 U/L (46-116); ASPARTATE AMINOTRANSFERASE 12 U/L (15-37); BILIRUBIN,DIRECT 0.1 mg/dL (0.0-0.2); BILIRUBIN,TOTAL 0.2 mg/dL (0.2-1.0); TOTAL PROTEIN, SERUM 6.7 g/dL (6.4-8.2)
[2024-05-01 21:59] LABS: APPEARANCE,URINE CLOUDY (CLEAR); BILIRUBIN,URINE NEGATIVE (NEGATIVE); BLOOD, URINE 3+ Ery/uL (NEGATIVE); COLOR,URINE YELLOW (YELLOW); KETONES,URINE NEGATIVE (NEGATIVE); LEUKOCYTE ESTERASE ,URINE 2+ (NEGATIVE); NITRITE, URINE NEGATIVE (NEGATIVE); PROTEIN,URINE 1+ mg/dl (NEGATIVE); UGLUCOSE NEGATIVE (NEGATIVE); UROBILINOGEN,URINE 0.2 EU/dL (0.2)
[2024-05-01 21:59] LABS: PARTIAL THROMBOPLASTIN TIME 28.3 SEC (24.3-34.3); PROTHROMBIN TIME 10.6 SECS (9.2-11.1)
[2024-05-01 22:07] LABS: LACTIC ACID 1.1 mmol/L (0.4-2.0)
[2024-05-01 22:08] LABS: ADD URINE CULTURE YES; BACTERIA,URINE 2+ /HPF (None Seen); RBC,URINE 51-80 /HPF (0-2); WBC,URINE 21-50 /HPF (0-3)
[2024-05-01] MEDS: CEFTRIAXONE 1GM BAG (ER ONLY) 1 GM/50 ML PIGGYBACK IV ONE (22:14)
[2024-05-01] MEDS ORDERED: MAGNESIUM HYDROXIDE 30 ML UDC PO PRN ×2 (22:30)
[2024-05-01] MEDS ORDERED: Z GUARD REMEDY 4 OZ OINT TP PRN (22:30)
[2024-05-01] MEDS ORDERED: ONDANSETRON HCL/PF 4 MG/2 ML VIAL IVP PRN (22:30)
[2024-05-01] MEDS ORDERED: NA PHOS,M-B/NA PHOS,DI-BA 1 EA ENEMA RC PRN (22:30)
[2024-05-01] MEDS ORDERED: BISACODYL SUPP (10 MG) 10 MG/SUPP.RECT SUPP.RECT RC PRN (22:30)
[2024-05-01] MEDS ORDERED: ACETAMINOPHEN ES 500 MG TABLET PO PRN (22:30)
[2024-05-01] MEDS ORDERED: MAG HYDROX/AL HYDROX/SIMETH 30 ML UDC PO PRN ×2 (22:30)
[2024-05-01] MEDS ORDERED: ZOLPIDEM TARTRATE 5 MG TABLET PO PRN (22:30)
[2024-05-01] MEDS ORDERED: ACETAMINOPHEN 325 MG TABLET PO PRN (22:30)
[2024-05-01 23:10] VITALS: BP 110/48; TEMP 98.4; O2SAT 96
[2024-05-01] MEDS: IV NS 0.9% 1,000 ML BAG IV ONE (23:23)
[2024-05-02] MEDS: IV NS 0.9% 1,000 ML IV PRN (00:32)
[2024-05-02 00:40] LABS: BAND % (MANUAL) 1 % (0.0-5.0); LYMPHOCYTES % (MANUAL) 9 % (16-48); MONOCYTES % (MANUAL) 15 % (0-11.0); NEUTROPHILS % (MANUAL) 75 (42-76); PLATELET ESTIMATE ADEQUATE
[2024-05-02 04:00] VITALS: BP 132/77; TEMP 98; O2SAT 98
[2024-05-02 06:25] LABS: BASOPHILS % (AUTO) 0.4 % (0.0-2.0); HEMATOCRIT 32 % (33-45); HEMOGLOBIN 10.7 g/dL (11.5-14.8); LYMPHOCYTES % (AUTO) 31.4 % (20.0-44.0); MEAN CORPUSCULAR HEMOGLOBIN 32 PG (26.0-33.0); MEAN CORPUSCULAR HGB CONC 33 g/dl (31.0-36.0); MEAN CORPUSCULAR VOLUME 96 fL (82-100); MONOCYTES # (AUTO) 0.4 K/uL (0.1-1.30); MONOCYTES % (AUTO) 13.8 % (2.0-12.0); NEUTROPHILS # (AUTO) 1.8 K/uL (1.8-8.9); NEUTROPHILS % (AUTO) 54.4 % (43.0-81.0); PLATELET COUNT (AUTO) 154 K/uL (150-450); RED BLOOD CELL COUNT(AUTO) 3.37 MIL/uL (4.0-5.2); RED CELL DISTRIBUTION WIDTH 15.1 % (11.5-15.0); WHITE BLOOD COUNT (AUTO) 3.2 K/uL (4.3-11.0)
[2024-05-02 06:46] LABS: CALCIUM, SERUM 7.9 mg/dL (8.5-10.1); CARBON DIOXIDE 29 mmol/L (21-32); CHLORIDE 108 mmol/L (98-107); CREATININE 1.4 mg/dL (0.6-1.3); GLUCOSE 86 mg/dL (74-106); MAGNESIUM 2.1 mg/dL (1.8-2.4); PHOSPHORUS 4.1 mg/dL (2.5-4.9); POTASSIUM 3.9 mmol/L (3.5-5.1); SODIUM SERUM 145 mmol/L (136-145); UREA NITROGEN, BLOOD 27 mg/dL (7-18)
[2024-05-02] MEDS: DIVALPROEX SODIUM 125 MG CAP.SPRINK PO SCH (08:21)
[2024-05-02] MEDS: POLYVINYL ALCOHOL 15 ML BOTTLE EACHEYE SCH (08:21)
[2024-05-02] MEDS: CHOLECALCIFEROL (VITAMIN D 3) 400 UNIT TABLET PO SCH (08:21)
[2024-05-02] MEDS: DOCUSATE SODIUM 100 MG CAPSULE PO SCH (08:21)
[2024-05-02] MEDS: MAGNESIUM OXIDE 400 MG TABLET PO SCH (08:22)
[2024-05-02] MEDS: APIXABAN 2.5 MG TABLET PO SCH (08:22)
[2024-05-02] MEDS: OLANZAPINE 5 MG TABLET PO SCH (08:22)
[2024-05-02] MEDS: METOPROLOL SUCCINATE 25 MG TAB.SR.24H PO SCH (08:41)
[2024-05-02] MEDS ORDERED: Medication Not On Formulary EA (Omega-3 Fatty Acids/Fish Oil (Fish Oil 1,000 Mg Softgel) PO SCH (09:00)
[2024-05-02] MEDS ORDERED: Medication Not On Formulary EA (Cran/Vitc/Mannose/Inulin/Brom (Uti-Stat Liquid) 30 ML) PO SCH (09:00)
[2024-05-02] MEDS: CALCIUM CARBONATE 500 MG TAB.CHEW PO SCH (10:36)
[2024-05-02 12:00] VITALS: BP 104/62; TEMP 97.7; O2SAT 96
[2024-05-02 20:00] VITALS: BP 116/51; TEMP 98.2; O2SAT 98
[2024-05-02] MEDS: CEFTRIAXONE 1 G in IV D5W 50 ML IV SCH (21:14)
[2024-05-03 04:00] VITALS: BP 118/78; TEMP 98.3; O2SAT 98
[2024-05-03 06:41] LABS: BASOPHILS % (AUTO) 0.5 % (0.0-2.0); EOSINOPHILS % (AUTO) 0.8 % (0.0-6.0); HEMATOCRIT 30 % (33-45); LYMPHOCYTES # (AUTO) 1.2 K/uL (0.8-4.8); LYMPHOCYTES % (AUTO) 25.2 % (20.0-44.0); MEAN CORPUSCULAR HEMOGLOBIN 32 PG (26.0-33.0); MEAN CORPUSCULAR HGB CONC 33 g/dl (31.0-36.0); MEAN CORPUSCULAR VOLUME 96 fL (82-100); MONOCYTES # (AUTO) 0.9 K/uL (0.1-1.30); MONOCYTES % (AUTO) 18.8 % (2.0-12.0); NEUTROPHILS # (AUTO) 2.6 K/uL (1.8-8.9); NEUTROPHILS % (AUTO) 54.7 % (43.0-81.0); PLATELET COUNT (AUTO) 145 K/uL (150-450); RED BLOOD CELL COUNT(AUTO) 3.15 MIL/uL (4.0-5.2); RED CELL DISTRIBUTION WIDTH 15.2 % (11.5-15.0); WHITE BLOOD COUNT (AUTO) 4.7 K/uL (4.3-11.0)
[2024-05-03 06:53] LABS: CALCIUM, SERUM 8.5 mg/dL (8.5-10.1); CARBON DIOXIDE 28 mmol/L (21-32); CHLORIDE 109 mmol/L (98-107); CREATININE 1.2 mg/dL (0.6-1.3); GLUCOSE 89 mg/dL (74-106); POTASSIUM 4.5 mmol/L (3.5-5.1); SODIUM SERUM 143 mmol/L (136-145); UREA NITROGEN, BLOOD 27 mg/dL (7-18)
[2024-05-03 08:00] VITALS: BP 136/74; TEMP 99.5; O2SAT 97
[2024-05-03 08:17] LABS: BAND % (MANUAL) 2 % (0.0-5.0); EOSINOPHILS % (MANUAL) 1 % (0-4); LYMPHOCYTES % (MANUAL) 27 % (16-48); MONOCYTES % (MANUAL) 18 % (0-11.0); NEUTROPHILS % (MANUAL) 52 (42-76); PLATELET ESTIMATE ADEQUATE
[2024-05-03 16:00] VITALS: BP 139/63; TEMP 98.4; O2SAT 95
[2024-05-03 20:00] VITALS: BP 108/56; TEMP 98.6; O2SAT 97
[2024-05-04] VITALS: BP 108/56; TEMP 98.6; O2SAT 97
[2024-05-04 06:17] LABS: BASOPHILS % (AUTO) 0.4 % (0.0-2.0); EOSINOPHILS % (AUTO) 1.1 % (0.0-6.0); HEMATOCRIT 31 % (33-45); LYMPHOCYTES # (AUTO) 1.3 K/uL (0.8-4.8); LYMPHOCYTES % (AUTO) 34.9 % (20.0-44.0); MEAN CORPUSCULAR HEMOGLOBIN 32 PG (26.0-33.0); MEAN CORPUSCULAR HGB CONC 32 g/dl (31.0-36.0); MEAN CORPUSCULAR VOLUME 98 fL (82-100); MONOCYTES # (AUTO) 0.6 K/uL (0.1-1.30); MONOCYTES % (AUTO) 16.2 % (2.0-12.0); NEUTROPHILS # (AUTO) 1.8 K/uL (1.8-8.9); NEUTROPHILS % (AUTO) 47.4 % (43.0-81.0); PLATELET COUNT (AUTO) 141 K/uL (150-450); RED BLOOD CELL COUNT(AUTO) 3.15 MIL/uL (4.0-5.2); RED CELL DISTRIBUTION WIDTH 15.3 % (11.5-15.0); WHITE BLOOD COUNT (AUTO) 3.7 K/uL (4.3-11.0)
[2024-05-04 06:31] LABS: CALCIUM, SERUM 8.7 mg/dL (8.5-10.1); CARBON DIOXIDE 30 mmol/L (21-32); CHLORIDE 109 mmol/L (98-107); CREATININE 1.4 mg/dL (0.6-1.3); GLUCOSE 108 mg/dL (74-106); POTASSIUM 4.6 mmol/L (3.5-5.1); SODIUM SERUM 145 mmol/L (136-145); UREA NITROGEN, BLOOD 28 mg/dL (7-18)
[2024-05-04 08:00] VITALS: BP 125/52; TEMP 100.4; O2SAT 96
[2024-05-04] MEDS: ACETAMINOPHEN 325 MG TABLET PO PRN (08:45)
[2024-05-04 16:00] VITALS: BP 113/59; TEMP 98.2; O2SAT 97
[2024-05-05] VITALS: BP 127/63; TEMP 98.5; O2SAT 99
[2024-05-05 06:53] LABS: CALCIUM, SERUM 9.3 mg/dL (8.5-10.1); CARBON DIOXIDE 35 mmol/L (21-32); CHLORIDE 105 mmol/L (98-107); CREATININE 1.4 mg/dL (0.6-1.3); GLUCOSE 106 mg/dL (74-106); MAGNESIUM 2.5 mg/dL (1.8-2.4); PHOSPHORUS 3.5 mg/dL (2.5-4.9); POTASSIUM 4.7 mmol/L (3.5-5.1); SODIUM SERUM 142 mmol/L (136-145); UREA NITROGEN, BLOOD 38 mg/dL (7-18)
[2024-05-05 06:57] LABS: BASOPHILS % (AUTO) 0.4 % (0.0-2.0); EOSINOPHILS # (AUTO) 0.1 K/uL (0.0-0.7); EOSINOPHILS % (AUTO) 2.5 % (0.0-6.0); HEMATOCRIT 34 % (33-45); LYMPHOCYTES # (AUTO) 1.5 K/uL (0.8-4.8); LYMPHOCYTES % (AUTO) 32.2 % (20.0-44.0); MEAN CORPUSCULAR HEMOGLOBIN 32 PG (26.0-33.0); MEAN CORPUSCULAR HGB CONC 33 g/dl (31.0-36.0); MEAN CORPUSCULAR VOLUME 97 fL (82-100); MONOCYTES # (AUTO) 0.5 K/uL (0.1-1.30); MONOCYTES % (AUTO) 11.4 % (2.0-12.0); NEUTROPHILS # (AUTO) 2.6 K/uL (1.8-8.9); NEUTROPHILS % (AUTO) 53.5 % (43.0-81.0); PLATELET COUNT (AUTO) 161 K/uL (150-450); RED BLOOD CELL COUNT(AUTO) 3.48 MIL/uL (4.0-5.2); RED CELL DISTRIBUTION WIDTH 14.9 % (11.5-15.0); WHITE BLOOD COUNT (AUTO) 4.8 K/uL (4.3-11.0)
[2024-05-05 08:00] VITALS: BP 108/60; TEMP 98; O2SAT 95
[2024-05-05 16:00] VITALS: BP 107/50; TEMP 99.4; O2SAT 95
[2024-05-05] MEDS ORDERED: APIX2.5T PO (16:32)
[2024-05-05] MEDS ORDERED: CEFD300C3 PO (16:32)
[2024-05-05 20:00] VITALS: BP 120/48; TEMP 98; O2SAT 100
[2024-05-06] VITALS: BP 120/48; TEMP 98; O2SAT 100
[2024-05-06 04:00] VITALS: BP 113/50; TEMP 97.5; O2SAT 99
[2024-05-06 08:00] VITALS: BP 113/60; TEMP 97.5; O2SAT 99
[2024-05-06 08:44] VITALS: BP 113/60
== END 2024-05-06 14:45 | DRG 871 ==
LOC: ER 19:41 → TELE1 22:37 → MEDSG1 23:37
PROVIDERS: ADMIT Nurse Practitioner Acute Care; ATTEND Nurse Practitioner Acute Care
DX: A41.50 Gram-negative sepsis, unspecified (principal); G92.8 Other toxic encephalopathy; N17.0 Acute kidney failure with tubular necrosis; N39.0 Urinary tract infection, site not specified; E44.0 Moderate protein-calorie malnutrition; Z68.41 Body mass index [BMI] 40.0-44.9, adult; D68.59 Other primary thrombophilia; F03.93 Unspecified dementia, unspecified severity, with mood disturbance; F03.94 Unspecified dementia, unspecified severity, with anxiety; R65.20 Severe sepsis without septic shock; G40.909 Epilepsy, unspecified, not intractable, without status epilepticus; J44.9 Chronic obstructive pulmonary disease, unspecified; I12.9 Hypertensive chronic kidney disease with stage 1 through stage 4 chronic kidney disease, or unspecified chronic kidney disease; N18.9 Chronic kidney disease, unspecified; E88.09 Other disorders of plasma-protein metabolism, not elsewhere classified; D63.8 Anemia in other chronic diseases classified elsewhere; E66.01 Morbid (severe) obesity due to excess calories; Z74.09 Other reduced mobility; M15.9 Polyosteoarthritis, unspecified; E78.5 Hyperlipidemia, unspecified; E86.9 Volume depletion, unspecified; Z87.440 Personal history of urinary (tract) infections; Z91.148 Patient's other noncompliance with medication regimen for other reason; K21.9 Gastro-esophageal reflux disease without esophagitis; Z79.899 Other long term (current) drug therapy; I95.9 Hypotension, unspecified; R80.9 Proteinuria, unspecified
CPT/HCPCS: 36415; 71045-TC; 80048-TC; 80076-TC; 81001; 83605-TC; 83735-TC; 84100-TC; 84484-TC; 85025-TC; 85730-TC; 87040-TC; 87086-TC; 92526; 92611-TC; 97110-TC; 97116-TC; 97530-TC; A4223; G0378; J0696; J7030; J7060

== ENCOUNTER 2024-07-09 02:39 | Inpatient (IN) | payer MEDICARE, OTHER ==
[2024-07-09] VITALS (11 sets, daily range): BP systolic 103–113; BP diastolic 49–65; TEMP 97.5–97.9; O2SAT 95–99
[~2024-07-09] VITALS: Ht 167.6 cm; Wt 79.4 kg
[~2024-07-09 02:39] MED LIST changes: +APIX2.5T PO; +CEFD300C3 PO
[2024-07-09 03:58] LABS: HEMATOCRIT 30 % (33-45); HEMOGLOBIN 9.7 g/dL (11.5-14.8); LYMPHOCYTES % (AUTO) 11.5 % (20.0-44.0); MEAN CORPUSCULAR HEMOGLOBIN 31 PG (26.0-33.0); MEAN CORPUSCULAR HGB CONC 33 g/dl (31.0-36.0); MEAN CORPUSCULAR VOLUME 95 fL (82-100); MONOCYTES # (AUTO) 0.8 K/uL (0.1-1.30); MONOCYTES % (AUTO) 8.4 % (2.0-12.0); NEUTROPHILS # (AUTO) 7.2 K/uL (1.8-8.9); NEUTROPHILS % (AUTO) 80.1 % (43.0-81.0); PLATELET COUNT (AUTO) 231 K/uL (150-450); RED BLOOD CELL COUNT(AUTO) 3.15 MIL/uL (4.0-5.2); RED CELL DISTRIBUTION WIDTH 14.7 % (11.5-15.0)
[2024-07-09 04:08] LABS: CALCIUM, SERUM 8.4 mg/dL (8.5-10.1); CREATININE 2.3 mg/dL (0.6-1.3); POTASSIUM 3.9 mmol/L (3.5-5.1)
[2024-07-09 04:16] LABS: LACTIC ACID 0.7 mmol/L (0.4-2.0)
[2024-07-09 04:23] LABS: BILIRUBIN,TOTAL 0.2 mg/dL (0.2-1.0); TOTAL PROTEIN, SERUM 7.5 g/dL (6.4-8.2)
[2024-07-09] MEDS ORDERED: methylPREDNISolone SOD SUCC 125 MG/2ML VIAL ONE (04:34)
[2024-07-09] MEDS: methylPREDNISolone SOD SUCC 125 MG/2ML VIAL IV ONE (04:34)
[2024-07-09 04:38] LABS: APPEARANCE,URINE CLOUDY (CLEAR); BILIRUBIN,URINE NEGATIVE (NEGATIVE); BLOOD, URINE 3+ Ery/uL (NEGATIVE); COLOR,URINE YELLOW (YELLOW); KETONES,URINE TRACE mg/dL (NEGATIVE); LEUKOCYTE ESTERASE ,URINE 2+ (NEGATIVE); NITRITE, URINE POSITIVE (NEGATIVE); PROTEIN,URINE 2+ mg/dl (NEGATIVE); UGLUCOSE NEGATIVE (NEGATIVE); UROBILINOGEN,URINE 0.2 EU/dL (0.2)
[2024-07-09 05:24] LABS: ADD URINE CULTURE YES; BACTERIA,URINE 2+ /HPF (None Seen); MUCUS,URINE Moderate /LPF (None Seen); RBC,URINE 81-100 /HPF (0-2); WBC,URINE 51-80 /HPF (0-3)
[2024-07-09] MEDS ORDERED: Z GUARD REMEDY 4 OZ OINT TP PRN (06:00)
[2024-07-09] MEDS ORDERED: ENOXAPARIN SODIUM 40 MG/0.4 ML DISP.SYRIN SQ SCH (06:00)
[2024-07-09] MEDS ORDERED: ONDANSETRON HCL/PF 4 MG/2 ML VIAL IVP PRN (06:00)
[2024-07-09] MEDS ORDERED: NA PHOS,M-B/NA PHOS,DI-BA 1 EA ENEMA RC PRN (06:00)
[2024-07-09] MEDS ORDERED: ACETAMINOPHEN 325 MG TABLET PO PRN (06:00)
[2024-07-09] MEDS ORDERED: ZOLPIDEM TARTRATE 5 MG TABLET PO PRN (06:00)
[2024-07-09] MEDS ORDERED: IPRATROPIUM NEB FS 0.5 MG/2.5 ML AMPUL.NEB NEB PRN (06:00)
[2024-07-09] MEDS ORDERED: MAGNESIUM HYDROXIDE 30 ML UDC PO PRN (06:00)
[2024-07-09] MEDS ORDERED: ALBUTEROL HALF STRENGTH 1.25 MG/3 ML VIAL.NEB NEB PRN (06:00)
[2024-07-09] MEDS ORDERED: BISACODYL SUPP (10 MG) 10 MG/SUPP.RECT SUPP.RECT RC PRN (06:00)
[2024-07-09] MEDS: ALBUTEROL HALF STRENGTH 1.25 MG/3 ML VIAL.NEB NEB SCH (07:35)
[2024-07-09] MEDS: CEFTRIAXONE 1 G in IV D5W 50 ML IV SCH (08:00)
[2024-07-09] MEDS ORDERED: LATA7.5D EACHEYE (08:01)
[2024-07-09] MEDS ORDERED: PETR71OI2 TP (08:01)
[2024-07-09] MEDS ORDERED: ONDA-97 PO (08:02)
[2024-07-09] MEDS ORDERED: CEFTRIAXONE 1GM BAG (ER ONLY) 50 ML IV ONE (08:04)
[2024-07-09] MEDS ORDERED: AZITHROMYCIN 500 MG VIAL ONE (08:05)
[2024-07-09] MEDS ORDERED: IPRATROPIUM NEB FS 0.5 MG/2.5 ML AMPUL.NEB ONE (08:23)
[2024-07-09] MEDS ORDERED: ALBUTEROL FS 2.5 MG/3 ML VIAL.NEB ONE (08:23)
[2024-07-09] MEDS: IPRATROPIUM NEB FS 0.5 MG/2.5 ML AMPUL.NEB NEB SCH (08:29)
[2024-07-09] MEDS: ALBUTEROL FS 2.5 MG/3 ML VIAL.NEB NEB ONE (08:29)
[2024-07-09] MEDS: AZITHROMYCIN 500 MG in IV D5W 250 ML IV SCH (08:30)
[2024-07-09] MEDS: OLANZAPINE 5 MG TABLET PO SCH (09:00)
[2024-07-09] MEDS: POLYVINYL ALCOHOL 15 ML BOTTLE OP SCH (09:00)
[2024-07-09] MEDS: MAGNESIUM OXIDE 400 MG TABLET PO SCH (09:00)
[2024-07-09] MEDS: CALCIUM CARBONATE 500 MG TAB.CHEW PO SCH (09:00)
[2024-07-09] MEDS: APIXABAN 2.5 MG TABLET PO SCH (09:00)
[2024-07-09] MEDS: DOCUSATE SODIUM 100 MG CAPSULE PO SCH (09:00)
[2024-07-09] MEDS: CHOLECALCIFEROL (VITAMIN D 3) 400 UNIT TABLET PO SCH (09:00)
[2024-07-09] MEDS: METOPROLOL SUCCINATE 25 MG TAB.SR.24H PO SCH (09:00)
[2024-07-09] MEDS: CEFEPIME 2 GM in IV D5W 100 ML IV SCH (11:05)
[2024-07-09] MEDS: methylPREDNISolone SOD SUCC 125 MG/2ML VIAL IV SCH (13:16)
[2024-07-09] MEDS: DIVALPROEX SODIUM 125 MG CAP.SPRINK PO SCH (13:16)
[2024-07-09] MEDS: IV NS 0.9% 1,000 ML IV PRN (22:28)
[2024-07-10] VITALS (15 sets, daily range): BP systolic 100–125; BP diastolic 41–84; TEMP 97.2–98.6; O2SAT 94–99
[2024-07-10 06:51] LABS: HEMATOCRIT 30 % (33-45); HEMOGLOBIN 9.7 g/dL (11.5-14.8); LYMPHOCYTES # (AUTO) 0.3 K/uL (0.8-4.8); LYMPHOCYTES % (AUTO) 3.9 % (20.0-44.0); MEAN CORPUSCULAR HEMOGLOBIN 30 PG (26.0-33.0); MEAN CORPUSCULAR HGB CONC 32 g/dl (31.0-36.0); MEAN CORPUSCULAR VOLUME 95 fL (82-100); MONOCYTES # (AUTO) 0.2 K/uL (0.1-1.30); MONOCYTES % (AUTO) 2.4 % (2.0-12.0); NEUTROPHILS # (AUTO) 8.3 K/uL (1.8-8.9); NEUTROPHILS % (AUTO) 93.7 % (43.0-81.0); PLATELET COUNT (AUTO) 241 K/uL (150-450); RED BLOOD CELL COUNT(AUTO) 3.18 MIL/uL (4.0-5.2); WHITE BLOOD COUNT (AUTO) 8.9 K/uL (4.3-11.0)
[2024-07-10 07:10] LABS: CALCIUM, SERUM 8.5 mg/dL (8.5-10.1); MAGNESIUM 2.6 mg/dL (1.8-2.4); PHOSPHORUS 3.6 mg/dL (2.5-4.9); POTASSIUM 3.9 mmol/L (3.5-5.1)
[2024-07-11] VITALS (15 sets, daily range): BP systolic 98–128; BP diastolic 42–106; TEMP 97.2–97.9; O2SAT 77–99
[2024-07-11 06:47] LABS: BASOPHILS % (AUTO) 0.1 % (0.0-2.0); HEMATOCRIT 30 % (33-45); HEMOGLOBIN 9.6 g/dL (11.5-14.8); LYMPHOCYTES # (AUTO) 0.4 K/uL (0.8-4.8); LYMPHOCYTES % (AUTO) 3.3 % (20.0-44.0); MEAN CORPUSCULAR HEMOGLOBIN 31 PG (26.0-33.0); MEAN CORPUSCULAR HGB CONC 32 g/dl (31.0-36.0); MEAN CORPUSCULAR VOLUME 94 fL (82-100); MONOCYTES # (AUTO) 0.2 K/uL (0.1-1.30); MONOCYTES % (AUTO) 2.1 % (2.0-12.0); NEUTROPHILS # (AUTO) 10.4 K/uL (1.8-8.9); NEUTROPHILS % (AUTO) 94.5 % (43.0-81.0); PLATELET COUNT (AUTO) 276 K/uL (150-450); RED BLOOD CELL COUNT(AUTO) 3.15 MIL/uL (4.0-5.2); RED CELL DISTRIBUTION WIDTH 14.5 % (11.5-15.0)
[2024-07-11 07:15] LABS: ALBUMIN 1.8 g/dL (3.4-5.0); BILIRUBIN,TOTAL 0.1 mg/dL (0.2-1.0); CALCIUM, SERUM 8.8 mg/dL (8.5-10.1); CREATININE 1.9 mg/dL (0.6-1.3); MAGNESIUM 2.8 mg/dL (1.8-2.4); PHOSPHORUS 4.2 mg/dL (2.5-4.9); POTASSIUM 4.2 mmol/L (3.5-5.1); TOTAL PROTEIN, SERUM 7.1 g/dL (6.4-8.2)
[2024-07-12] VITALS (17 sets, daily range): BP systolic 103–128; BP diastolic 52–100; TEMP 97.5–98.8; O2SAT 94–99
[2024-07-12] MEDS: AZITHROMYCIN 250 MG TABLET PO SCH (08:19)
[2024-07-12] MEDS: methylPREDNISolone SOD SUCC 125 MG/2ML VIAL IV SCH (11:38)
[2024-07-13] VITALS (9 sets, daily range): BP systolic 107; BP diastolic 51; TEMP 98.2; O2SAT 96–99
[2024-07-13 02:11] LABS: PTH, INTACT 50 pg/mL (15-65)
[2024-07-13 05:07] LABS: *SPE A/G RATIO 0.5 (0.7-1.7); *SPE ALPHA-1-GLOBULIN 0.4 g/dL (0.0-0.4); *SPE ALPHA-2-GLOBULIN 1.1 g/dL (0.4-1.0); *SPE BETA GLOBULIN 1.3 g/dL (0.7-1.3); *SPE GLOBULIN, TOTAL 3.9 g/dL (2.2-3.9); *SPE M-SPIKE Not Observed g/dL (Not Observed); *SPE PROTEIN TOTAL 5.9 g/dL (6.0-8.5); *SPEGAMMA GLOBULIN 1.1 g/dL (0.4-1.8)
[2024-07-13] MEDS ORDERED: CEFE2FRO IV (10:03)
[2024-07-13] MEDS ORDERED: PRED50TA PO (10:03)
[2024-07-13 11:10] LABS: BASOPHILS % (AUTO) 0.1 % (0.0-2.0); HEMATOCRIT 31 % (33-45); LYMPHOCYTES # (AUTO) 0.9 K/uL (0.8-4.8); LYMPHOCYTES % (AUTO) 11.4 % (20.0-44.0); MEAN CORPUSCULAR HEMOGLOBIN 31 PG (26.0-33.0); MEAN CORPUSCULAR HGB CONC 32 g/dl (31.0-36.0); MEAN CORPUSCULAR VOLUME 95 fL (82-100); MONOCYTES # (AUTO) 0.8 K/uL (0.1-1.30); MONOCYTES % (AUTO) 9.9 % (2.0-12.0); NEUTROPHILS # (AUTO) 6.2 K/uL (1.8-8.9); NEUTROPHILS % (AUTO) 78.6 % (43.0-81.0); PLATELET COUNT (AUTO) 309 K/uL (150-450); RED BLOOD CELL COUNT(AUTO) 3.27 MIL/uL (4.0-5.2); WHITE BLOOD COUNT (AUTO) 7.9 K/uL (4.3-11.0)
[2024-07-13 11:25] LABS: ALBUMIN 1.9 g/dL (3.4-5.0); BILIRUBIN,TOTAL 0.2 mg/dL (0.2-1.0); CALCIUM, SERUM 8.8 mg/dL (8.5-10.1); CREATININE 1.7 mg/dL (0.6-1.3); MAGNESIUM 2.4 mg/dL (1.8-2.4); PHOSPHORUS 2.6 mg/dL (2.5-4.9); POTASSIUM 4.3 mmol/L (3.5-5.1); TOTAL PROTEIN, SERUM 6.5 g/dL (6.4-8.2)
[2024-07-13 11:32] LABS: LYMPHOCYTES % (MANUAL) 17 % (16-48); MONOCYTES % (MANUAL) 10 % (0-11.0); NEUTROPHILS % (MANUAL) 73 (42-76)
[2024-07-13 11:33] LABS: PLATELET ESTIMATE ADEQUATE
[2024-07-13 11:34] LABS: ANISOCYTOSIS 1+
== END 2024-07-13 17:05 | DRG 177 ==
LOC: ER 02:45 → TRANSITION 05:48 → TELE 08:44 → MED 07-11 14:32
PROVIDERS: ADMIT Internal Medicine; ATTEND Internal Medicine
DX: J15.69 Pneumonia due to other Gram-negative bacteria (principal); G93.41 Metabolic encephalopathy; J96.01 Acute respiratory failure with hypoxia; E44.0 Moderate protein-calorie malnutrition; N17.9 Acute kidney failure, unspecified; J44.1 Chronic obstructive pulmonary disease with (acute) exacerbation; J44.0 Chronic obstructive pulmonary disease with (acute) lower respiratory infection; K51.90 Ulcerative colitis, unspecified, without complications; N39.0 Urinary tract infection, site not specified; G40.909 Epilepsy, unspecified, not intractable, without status epilepticus; F03.90 Unspecified dementia, unspecified severity, without behavioral disturbance, psychotic disturbance, mood disturbance, and anxiety; I12.9 Hypertensive chronic kidney disease with stage 1 through stage 4 chronic kidney disease, or unspecified chronic kidney disease; D64.9 Anemia, unspecified; E88.09 Other disorders of plasma-protein metabolism, not elsewhere classified; Z79.01 Long term (current) use of anticoagulants; Z87.891 Personal history of nicotine dependence; N18.30 Chronic kidney disease, stage 3 unspecified; Z68.28 Body mass index [BMI] 28.0-28.9, adult; E78.5 Hyperlipidemia, unspecified; F09 Unspecified mental disorder due to known physiological condition; Z87.440 Personal history of urinary (tract) infections; M89.8X9 Other specified disorders of bone, unspecified site; Z20.822 Contact with and (suspected) exposure to COVID-19
CPT/HCPCS: 36415; 71045-TC; 76770-TC; 80048-TC; 80053-TC; 81001; 82550-TC; 83605-TC; 83735-TC; 83880; 83970; 84100-TC; 84155; 84165; 84484-TC; 85025-TC; 87040-TC; 87081-TC; 94761-TC; 94799-TC; A4223; G0378; J0456; J0692; J0696; J2919; J7030; J7040; J7060

== ENCOUNTER 2024-10-18 00:39 | Inpatient (IN) | payer MEDICARE, OTHER ==
[~2024-10-18] VITALS: Ht 170.2 cm; Wt 99.8 kg
[~2024-10-18 00:39] MED LIST changes: -CEFD300C3 PO; +CEFE2FRO IV; +LATA7.5D EACHEYE; +ONDA-97 PO; +PETR71OI2 TP; +PRED50TA PO
[2024-10-18 01:14] LABS: BASOPHILS % (AUTO) 0.2 % (0.0-2.0); EOSINOPHILS # (AUTO) 0.1 K/uL (0.0-0.7); EOSINOPHILS % (AUTO) 0.5 % (0.0-6.0); HEMATOCRIT 32 % (33-45); HEMOGLOBIN 10.6 g/dL (11.5-14.8); LYMPHOCYTES % (AUTO) 8.7 % (20.0-44.0); MEAN CORPUSCULAR HEMOGLOBIN 31 PG (26.0-33.0); MEAN CORPUSCULAR HGB CONC 33 g/dl (31.0-36.0); MEAN CORPUSCULAR VOLUME 93 fL (82-100); MONOCYTES # (AUTO) 1.8 K/uL (0.1-1.30); MONOCYTES % (AUTO) 16.4 % (2.0-12.0); NEUTROPHILS # (AUTO) 8.3 K/uL (1.8-8.9); NEUTROPHILS % (AUTO) 74.2 % (43.0-81.0); PLATELET COUNT (AUTO) 190 K/uL (150-450); RED BLOOD CELL COUNT(AUTO) 3.46 MIL/uL (4.0-5.2); RED CELL DISTRIBUTION WIDTH 15.2 % (11.5-15.0); WHITE BLOOD COUNT (AUTO) 11.2 K/uL (4.3-11.0)
[2024-10-18 01:25] LABS: CALCIUM, SERUM 8.9 mg/dL (8.5-10.1); CREATININE 1.9 mg/dL (0.6-1.3); POTASSIUM 4.1 mmol/L (3.5-5.1)
[2024-10-18 01:26] LABS: INR 1.01 (0.91-1.10); PROTHROMBIN TIME 10.7 SECS (9.2-11.1)
[2024-10-18 01:30] LABS: LACTIC ACID 0.9 mmol/L (0.4-2.0)
[2024-10-18 01:31] LABS: ALBUMIN 2.7 g/dL (3.4-5.0); BILIRUBIN,DIRECT 0.1 mg/dL (0.0-0.2); BILIRUBIN,TOTAL 0.5 mg/dL (0.2-1.0)
[2024-10-18 03:03] LABS: APPEARANCE,URINE TURBID (CLEAR); BILIRUBIN,URINE NEGATIVE (NEGATIVE); BLOOD, URINE 3+ Ery/uL (NEGATIVE); COLOR,URINE DARK YELLOW (YELLOW); KETONES,URINE NEGATIVE (NEGATIVE); LEUKOCYTE ESTERASE ,URINE 3+ (NEGATIVE); NITRITE, URINE POSITIVE (NEGATIVE); PROTEIN,URINE 2+ mg/dl (NEGATIVE); UGLUCOSE NEGATIVE (NEGATIVE); UROBILINOGEN,URINE 0.2 EU/dL (0.2)
[2024-10-18 03:05] LABS: ADD URINE CULTURE YES; BACTERIA,URINE Many /HPF (None Seen); RBC,URINE 21-50 /HPF (0-2); SQUAMOUS EPITHELIAL CELL,UR Rare /HPF (None Seen); WBC,URINE 51-80 /HPF (0-3)
[2024-10-18] MEDS ORDERED: CEFTRIAXONE 1GM BAG (ER ONLY) 50 ML IV ONE (03:11)
[2024-10-18] MEDS: CEFTRIAXONE 1GM BAG (ER ONLY) 1 GM/50 ML PIGGYBACK IV ONE (03:18)
[2024-10-18] MEDS: IV NS 0.9% 1,000 ML BAG IV ONE (03:18)
[2024-10-18 03:47] VITALS: O2SAT 94
[2024-10-18] MEDS ORDERED: MAGNESIUM HYDROXIDE 30 ML UDC PO PRN (04:00)
[2024-10-18] MEDS ORDERED: MAG HYDROX/AL HYDROX/SIMETH 30 ML UDC PO PRN (04:00)
[2024-10-18] MEDS ORDERED: Z GUARD REMEDY 4 OZ OINT TP PRN (04:00)
[2024-10-18] MEDS ORDERED: ONDANSETRON HCL/PF 4 MG/2 ML VIAL IVP PRN (04:00)
[2024-10-18 05:00] VITALS: BP 126/49; TEMP 99.9; O2SAT 94
[2024-10-18] MEDS: ACETAMINOPHEN 325 MG TABLET PO PRN (06:08)
[2024-10-18] MEDS ORDERED: APIX2.5T PO (07:43)
[2024-10-18] MEDS ORDERED: CRAN300T PO (07:43)
[2024-10-18] MEDS: PANTOPRAZOLE 40 MG TABLET.DR PO SCH (08:26)
[2024-10-18 08:35] VITALS: BP 102/55; TEMP 99.1; O2SAT 95
[2024-10-18] MEDS: ENOXAPARIN SODIUM 40 MG/0.4 ML DISP.SYRIN SQ SCH (09:04)
[2024-10-18] MEDS: DIVALPROEX SODIUM 125 MG CAP.SPRINK PO SCH (13:03)
[2024-10-18] MEDS: POLYVINYL ALCOHOL 15 ML BOTTLE EACHEYE SCH (13:04)
[2024-10-18 14:59] LABS: BASOPHILS % (AUTO) 0.3 % (0.0-2.0); HEMATOCRIT 31 % (33-45); LYMPHOCYTES # (AUTO) 1.2 K/uL (0.8-4.8); LYMPHOCYTES % (AUTO) 6.6 % (20.0-44.0); MEAN CORPUSCULAR HEMOGLOBIN 31 PG (26.0-33.0); MEAN CORPUSCULAR HGB CONC 33 g/dl (31.0-36.0); MEAN CORPUSCULAR VOLUME 93 fL (82-100); MONOCYTES % (AUTO) 17.2 % (2.0-12.0); NEUTROPHILS # (AUTO) 13.2 K/uL (1.8-8.9); NEUTROPHILS % (AUTO) 75.9 % (43.0-81.0); PLATELET COUNT (AUTO) 172 K/uL (150-450); RED BLOOD CELL COUNT(AUTO) 3.28 MIL/uL (4.0-5.2); RED CELL DISTRIBUTION WIDTH 15.3 % (11.5-15.0); WHITE BLOOD COUNT (AUTO) 17.5 K/uL (4.3-11.0)
[2024-10-18 15:23] LABS: CALCIUM, SERUM 8.1 mg/dL (8.5-10.1); CREATININE 1.7 mg/dL (0.6-1.3); POTASSIUM 4.2 mmol/L (3.5-5.1)
[2024-10-18] MEDS: OLANZAPINE 2.5 MG TABLET PO SCH (16:05)
[2024-10-18] MEDS: APIXABAN 2.5 MG TABLET PO SCH (16:08)
[2024-10-18 16:15] VITALS: BP 109/53; TEMP 102.7; O2SAT 98
[2024-10-18 20:00] VITALS: BP 113/50; TEMP 98.2; O2SAT 97
[2024-10-19] MEDS: IV NS 0.9% 1,000 ML IV PRN (03:33)
[2024-10-19 08:00] VITALS: BP 117/60; TEMP 99.1; O2SAT 97
[2024-10-19] MEDS: CEFTRIAXONE 1 G in IV D5W 50 ML IV SCH (08:11)
[2024-10-19] MEDS: METOPROLOL SUCCINATE 25 MG TAB.SR.24H PO SCH (09:21)
[2024-10-19 10:46] LABS: BASOPHILS % (AUTO) 0.2 % (0.0-2.0); EOSINOPHILS % (AUTO) 0.2 % (0.0-6.0); HEMATOCRIT 29 % (33-45); HEMOGLOBIN 9.5 g/dL (11.5-14.8); LYMPHOCYTES # (AUTO) 0.9 K/uL (0.8-4.8); LYMPHOCYTES % (AUTO) 6.5 % (20.0-44.0); MEAN CORPUSCULAR HEMOGLOBIN 30 PG (26.0-33.0); MEAN CORPUSCULAR HGB CONC 32 g/dl (31.0-36.0); MEAN CORPUSCULAR VOLUME 93 fL (82-100); MONOCYTES # (AUTO) 1.9 K/uL (0.1-1.30); MONOCYTES % (AUTO) 14.6 % (2.0-12.0); NEUTROPHILS # (AUTO) 10.3 K/uL (1.8-8.9); NEUTROPHILS % (AUTO) 78.5 % (43.0-81.0); PLATELET COUNT (AUTO) 146 K/uL (150-450); RED BLOOD CELL COUNT(AUTO) 3.16 MIL/uL (4.0-5.2); WHITE BLOOD COUNT (AUTO) 13.1 K/uL (4.3-11.0)
[2024-10-19 11:11] LABS: CREATININE 1.7 mg/dL (0.6-1.3); MAGNESIUM 2.1 mg/dL (1.8-2.4); PHOSPHORUS 3.1 mg/dL (2.5-4.9); POTASSIUM 3.7 mmol/L (3.5-5.1)
[2024-10-19 16:00] VITALS: BP 114/62; TEMP 98.4; O2SAT 99
[2024-10-19 20:00] VITALS: BP 115/45; TEMP 98.4; O2SAT 97
[2024-10-20 08:00] VITALS: BP 124/59; TEMP 98.2; O2SAT 98
[2024-10-20 16:00] VITALS: BP 115/57; TEMP 98.1; O2SAT 99
[2024-10-20 20:13] VITALS: BP 102/39; TEMP 98.2; O2SAT 97
[2024-10-21 08:00] VITALS: BP 120/58; TEMP 98; O2SAT 98
[2024-10-21 08:33] VITALS: BP 106/78
[2024-10-21] MEDS: CEFTRIAXONE 2 G in IV D5W 100 ML IV SCH (08:51)
[2024-10-21 09:55] LABS: BASOPHILS % (AUTO) 0.3 % (0.0-2.0); EOSINOPHILS # (AUTO) 0.1 K/uL (0.0-0.7); EOSINOPHILS % (AUTO) 1.2 % (0.0-6.0); HEMATOCRIT 29 % (33-45); HEMOGLOBIN 9.4 g/dL (11.5-14.8); LYMPHOCYTES # (AUTO) 1.1 K/uL (0.8-4.8); LYMPHOCYTES % (AUTO) 15.6 % (20.0-44.0); MEAN CORPUSCULAR HEMOGLOBIN 30 PG (26.0-33.0); MEAN CORPUSCULAR HGB CONC 32 g/dl (31.0-36.0); MEAN CORPUSCULAR VOLUME 94 fL (82-100); MONOCYTES # (AUTO) 0.7 K/uL (0.1-1.30); MONOCYTES % (AUTO) 10.4 % (2.0-12.0); NEUTROPHILS # (AUTO) 4.9 K/uL (1.8-8.9); NEUTROPHILS % (AUTO) 72.5 % (43.0-81.0); PLATELET COUNT (AUTO) 169 K/uL (150-450); RED BLOOD CELL COUNT(AUTO) 3.09 MIL/uL (4.0-5.2); RED CELL DISTRIBUTION WIDTH 15.2 % (11.5-15.0); WHITE BLOOD COUNT (AUTO) 6.8 K/uL (4.3-11.0)
[2024-10-21 10:20] LABS: ALBUMIN 1.9 g/dL (3.4-5.0); BILIRUBIN,TOTAL 0.3 mg/dL (0.2-1.0); CALCIUM, SERUM 8.8 mg/dL (8.5-10.1); CREATININE 1.2 mg/dL (0.6-1.3); MAGNESIUM 2.4 mg/dL (1.8-2.4); PHOSPHORUS 3.8 mg/dL (2.5-4.9); POTASSIUM 4.3 mmol/L (3.5-5.1); TOTAL PROTEIN, SERUM 6.6 g/dL (6.4-8.2)
[2024-10-21] MEDS ORDERED: CEFT2VIA13 IJ (10:40)
== END 2024-10-21 13:30 | DRG 871 ==
LOC: ER 00:40 → MED 03:54
PROVIDERS: ADMIT Internal Medicine; ATTEND Internal Medicine
DX: A41.50 Gram-negative sepsis, unspecified (principal); N17.0 Acute kidney failure with tubular necrosis; N39.0 Urinary tract infection, site not specified; K51.90 Ulcerative colitis, unspecified, without complications; G40.909 Epilepsy, unspecified, not intractable, without status epilepticus; F25.9 Schizoaffective disorder, unspecified; Z20.822 Contact with and (suspected) exposure to COVID-19; E78.5 Hyperlipidemia, unspecified; F29 Unspecified psychosis not due to a substance or known physiological condition; F41.9 Anxiety disorder, unspecified; F03.90 Unspecified dementia, unspecified severity, without behavioral disturbance, psychotic disturbance, mood disturbance, and anxiety; F39 Unspecified mood [affective] disorder; J44.9 Chronic obstructive pulmonary disease, unspecified; N18.9 Chronic kidney disease, unspecified; I12.9 Hypertensive chronic kidney disease with stage 1 through stage 4 chronic kidney disease, or unspecified chronic kidney disease; M19.90 Unspecified osteoarthritis, unspecified site; H04.129 Dry eye syndrome of unspecified lacrimal gland; I70.0 Atherosclerosis of aorta; D64.9 Anemia, unspecified; E83.42 Hypomagnesemia; E66.9 Obesity, unspecified; Z68.34 Body mass index [BMI] 34.0-34.9, adult; Z79.01 Long term (current) use of anticoagulants; Z91.09 Other allergy status, other than to drugs and biological substances; Z79.899 Other long term (current) drug therapy
CPT/HCPCS: 36415; 71045-TC; 80048-TC; 80053-TC; 80076-TC; 81001; 83605-TC; 83735-TC; 84100-TC; 85025-TC; 85730-TC; 87040-TC; 87081-TC; 87086-TC; 87186-TC; A4223; G0378; J0696; J1650; J7030; J7060

== ENCOUNTER 2025-06-11 13:34 | Inpatient (IN) | payer MEDICARE, OTHER ==
[~2025-06-11] VITALS: Ht 160 cm; Wt 91.6 kg
[~2025-06-11 13:34] MED LIST changes: -CEFE2FRO IV; +CEFT2VIA13 IJ; +CRAN300T PO; -CRAN3875 PO; +IVER3TAB2 PO; -LATA7.5D EACHEYE; -MAG30ORA PO; -OMEG-167 PO; -ONDA-97 PO; -PETR71OI2 TP; -PRED50TA PO
[2025-06-11 14:18] LABS: PLATELET COUNT (AUTO) 313 K/uL (150-450); RED BLOOD CELL COUNT(AUTO) 3.47 MIL/uL (4.0-5.2); RED CELL DISTRIBUTION WIDTH 16.0 % (11.5-15.0); WHITE BLOOD COUNT (AUTO) 5.9 K/uL (4.3-11.0)
[2025-06-11] MEDS ORDERED: Magnesium 1GM/D5W 100ML PREMIX 100 ML IV ONE ×2 (14:26→15:32)
[2025-06-11] MEDS ORDERED: MAG30ORA PO (14:26)
[2025-06-11] MEDS ORDERED: PANT40TA49 PO (14:26)
[2025-06-11] MEDS ORDERED: IPRATROPIUM NEB FS 0.5 MG/2.5 ML AMPUL.NEB ONE (14:31)
[2025-06-11] MEDS ORDERED: ALBUTEROL FS 2.5 MG/3 ML VIAL.NEB ONE (14:31)
[2025-06-11] MEDS: Magnesium 1GM/D5W 100ML PREMIX 200 ML IV ONE (14:34)
[2025-06-11 14:37] VITALS: O2SAT 91
[2025-06-11] MEDS: IPRATROPIUM NEB FS 0.5 MG/2.5 ML AMPUL.NEB NEB ONE (14:37)
[2025-06-11] MEDS: ALBUTEROL FS 2.5 MG/3 ML VIAL.NEB CONTNEB ONE (14:37)
[2025-06-11 15:18] VITALS: O2SAT 95
[2025-06-11] MEDS: IV NS 0.9% 1,000 ML BAG IV ONE (15:35)
[2025-06-11 15:45] LABS: ASPARTATE AMINOTRANSFERASE 12 U/L (15-37); CALCIUM, SERUM 7.9 mg/dL (8.5-10.1); CREATININE 1.7 mg/dL (0.6-1.3); LACTIC ACID 1.2 mmol/L (0.4-2.0); SODIUM SERUM 141 mmol/L (136-145); TOTAL PROTEIN, SERUM 7.5 g/dL (6.4-8.2); UREA NITROGEN, BLOOD 33 mg/dL (7-18)
[2025-06-11 16:07] LABS: INR 1.08 (0.91-1.10)
[2025-06-11] MEDS ORDERED: VANCOMYCIN 1 GM /D5W 250 ML PB IV ONE (16:31)
[2025-06-11] MEDS ORDERED: PIPERACI/TAZO 3.375GM/D5W 50ML PB IV ONE ×2 (16:31→22:14)
[2025-06-11] MEDS: PIPERACILLIN /TAZOBACTAM 3.375 G in IV D5W 50 ML IV ONE (16:55)
[2025-06-11] MEDS: VANCOMYCIN 1 GM in IV D5W 250 ML IV ONE (17:15)
[2025-06-11 19:15] VITALS: BP 116/48; TEMP 98.4; O2SAT 95
[2025-06-11 20:00] VITALS: BP 104/51; TEMP 98.2; O2SAT 98
[2025-06-11] MEDS ORDERED: Z GUARD REMEDY 4 OZ OINT TP PRN (21:00)
[2025-06-11] MEDS ORDERED: DOSING PER PHARMACY-VANCOMYCIN IV XX PRN (21:00)
[2025-06-11] MEDS: IPRATROPIUM NEB FS 0.5 MG/2.5 ML AMPUL.NEB NEB SCH (21:00)
[2025-06-11] MEDS ORDERED: ACETAMINOPHEN 325 MG TABLET PO PRN (21:00)
[2025-06-11] MEDS ORDERED: ONDANSETRON HCL/PF 4 MG/2 ML VIAL IVP PRN (21:00)
[2025-06-11] MEDS: ALBUTEROL FS 2.5 MG/3 ML VIAL.NEB NEB SCH (21:00)
[2025-06-11] MEDS: ENOXAPARIN SODIUM 40 MG/0.4 ML DISP.SYRIN SQ SCH (21:24)
[2025-06-11] MEDS: IV LR 1000 ML 1,000 ML IV SCH (21:25)
[2025-06-11] MEDS: PIPERACILLIN /TAZOBACTAM 3.375 G in IV D5W 50 ML IV SCH (22:30)
[2025-06-12] VITALS (19 sets, daily range): BP systolic 105–131; BP diastolic 44–73; TEMP 97.3–98.1; O2SAT 91–100
[2025-06-12] MEDS ORDERED: PIPERACI/TAZO 3.375GM/D5W 50ML PB IV ONE (05:17)
[2025-06-12] MEDS: VANCOMYCIN 750 MG in IV D5W 250 ML IV SCH (08:10)
[2025-06-12] MEDS: DIVALPROEX SODIUM 125 MG CAP.SPRINK PO SCH (08:11)
[2025-06-12] MEDS: PANTOPRAZOLE 40 MG TABLET.DR PO SCH (08:11)
[2025-06-12] MEDS: APIXABAN 2.5 MG TABLET PO SCH (08:14)
[2025-06-12] MEDS: METOPROLOL SUCCINATE 25 MG TAB.SR.24H PO SCH (08:19)
[2025-06-12] MEDS: PIPERACILLIN /TAZOBACTAM 3.375 G in IV D5W 100 ML IV SCH (09:55)
[2025-06-12 16:54] LABS: PLATELET COUNT (AUTO) 309 K/uL (150-450); RED BLOOD CELL COUNT(AUTO) 3.20 MIL/uL (4.0-5.2); RED CELL DISTRIBUTION WIDTH 16.4 % (11.5-15.0); WHITE BLOOD COUNT (AUTO) 6.3 K/uL (4.3-11.0)
[2025-06-12 17:04] LABS: CALCIUM, SERUM 7.8 mg/dL (8.5-10.1); CREATININE 1.8 mg/dL (0.6-1.3); PHOSPHORUS 2.8 mg/dL (2.5-4.9); SODIUM SERUM 137.0 mmol/L (136-145); UREA NITROGEN, BLOOD 36.0 mg/dL (7-18)
[2025-06-12 19:01] LABS: BAND % (MANUAL) 1 % (0.0-5.0); LYMPHOCYTES % (MANUAL) 14 % (16-48); MONOCYTES % (MANUAL) 8 % (0-11.0); NEUTROPHILS % (MANUAL) 77 (42-76); PLATELET ESTIMATE ADEQUATE
[2025-06-13] VITALS (15 sets, daily range): BP systolic 106–118; BP diastolic 57–68; TEMP 97.5–98.4; O2SAT 94–100
[2025-06-13 06:54] LABS: CALCIUM, SERUM 8.2 mg/dL (8.5-10.1); CREATININE 1.8 mg/dL (0.6-1.3); SODIUM SERUM 144.0 mmol/L (136-145); UREA NITROGEN, BLOOD 42.0 mg/dL (7-18)
[2025-06-13] MEDS: IV LR 1000 ML 1,000 ML IV PRN (15:33)
[2025-06-14] VITALS (13 sets, daily range): BP systolic 98–106; BP diastolic 40–56; TEMP 97.7–99.1; O2SAT 92–98
[2025-06-14 07:26] LABS: PLATELET COUNT (AUTO) 345 K/uL (150-450); RED BLOOD CELL COUNT(AUTO) 3.13 MIL/uL (4.0-5.2); RED CELL DISTRIBUTION WIDTH 15.4 % (11.5-15.0); WHITE BLOOD COUNT (AUTO) 6.8 K/uL (4.3-11.0)
[2025-06-14 07:51] LABS: CALCIUM, SERUM 8.3 mg/dL (8.5-10.1); CREATININE 1.6 mg/dL (0.6-1.3); PHOSPHORUS 3.6 mg/dL (2.5-4.9); SODIUM SERUM 146.0 mmol/L (136-145); UREA NITROGEN, BLOOD 40.0 mg/dL (7-18)
[2025-06-14] MEDS ORDERED: PIPERACILLIN /TAZOBACTAM 4.5 G in IV D5W 100 ML IV SCH ×2 (12:30→18:00)
[2025-06-14] MEDS: PIPERACILLIN /TAZOBACTAM 3.375 G in IV D5W 100 ML IV SCH (17:03)
[2025-06-15] VITALS (12 sets, daily range): BP systolic 105–121; BP diastolic 49–55; TEMP 97.3–98.2; O2SAT 94–99
[2025-06-15 06:24] LABS: PLATELET COUNT (AUTO) 360 K/uL (150-450); RED BLOOD CELL COUNT(AUTO) 3.48 MIL/uL (4.0-5.2); RED CELL DISTRIBUTION WIDTH 15.8 % (11.5-15.0); WHITE BLOOD COUNT (AUTO) 6.0 K/uL (4.3-11.0)
[2025-06-15 06:33] LABS: CALCIUM, SERUM 8.7 mg/dL (8.5-10.1); CREATININE 1.8 mg/dL (0.6-1.3); PHOSPHORUS 3.9 mg/dL (2.5-4.9); SODIUM SERUM 144.0 mmol/L (136-145); UREA NITROGEN, BLOOD 40.0 mg/dL (7-18)
[2025-06-16] VITALS (9 sets, daily range): BP systolic 129; BP diastolic 51–67; TEMP 97.3; O2SAT 92–98
[2025-06-16 06:27] LABS: PLATELET COUNT (AUTO) 316 K/uL (150-450); RED BLOOD CELL COUNT(AUTO) 3.02 MIL/uL (4.0-5.2); RED CELL DISTRIBUTION WIDTH 15.7 % (11.5-15.0); WHITE BLOOD COUNT (AUTO) 6.1 K/uL (4.3-11.0)
[2025-06-16 06:39] LABS: CALCIUM, SERUM 7.9 mg/dL (8.5-10.1); CREATININE 1.6 mg/dL (0.6-1.3); PHOSPHORUS 3.9 mg/dL (2.5-4.9); SODIUM SERUM 146.0 mmol/L (136-145); UREA NITROGEN, BLOOD 39.0 mg/dL (7-18)
[2025-06-16] MEDS ORDERED: LEVO500T90 PO (08:51)
[2025-06-16] MEDS ORDERED: IVERMECTIN 3 MG TABLET PO SCH (21:30)
== END 2025-06-16 13:20 | DRG 177 ==
LOC: ER 14:01 → TELE 15:14 → MED 06-12 12:55
PROVIDERS: ADMIT Nurse Practitioner Acute Care; ATTEND Internal Medicine
DX: J15.69 Pneumonia due to other Gram-negative bacteria (principal); J96.01 Acute respiratory failure with hypoxia; D69.6 Thrombocytopenia, unspecified; D68.59 Other primary thrombophilia; N18.4 Chronic kidney disease, stage 4 (severe); D63.8 Anemia in other chronic diseases classified elsewhere; E83.51 Hypocalcemia; J44.0 Chronic obstructive pulmonary disease with (acute) lower respiratory infection; N17.9 Acute kidney failure, unspecified; Z79.01 Long term (current) use of anticoagulants; F03.93 Unspecified dementia, unspecified severity, with mood disturbance; I12.9 Hypertensive chronic kidney disease with stage 1 through stage 4 chronic kidney disease, or unspecified chronic kidney disease; E66.9 Obesity, unspecified; G40.909 Epilepsy, unspecified, not intractable, without status epilepticus; F20.9 Schizophrenia, unspecified; F32.A Depression, unspecified; F03.94 Unspecified dementia, unspecified severity, with anxiety; K51.90 Ulcerative colitis, unspecified, without complications; E88.09 Other disorders of plasma-protein metabolism, not elsewhere classified; Z20.822 Contact with and (suspected) exposure to COVID-19; F41.9 Anxiety disorder, unspecified; I25.10 Atherosclerotic heart disease of native coronary artery without angina pectoris; E78.5 Hyperlipidemia, unspecified; Z88.8 Allergy status to other drugs, medicaments and biological substances; Z87.19 Personal history of other diseases of the digestive system; Z79.899 Other long term (current) drug therapy; K21.9 Gastro-esophageal reflux disease without esophagitis; Z87.440 Personal history of urinary (tract) infections; Z84.19 Family history of other disorders of kidney and ureter; Z68.35 Body mass index [BMI] 35.0-35.9, adult; Y95 Nosocomial condition; F39 Unspecified mood [affective] disorder; B86 Scabies
CPT/HCPCS: 36415; 71045-TC; 80048-TC; 80076-TC; 83605-TC; 83735-TC; 84100-TC; 84484-TC; 85025-TC; 85027-TC; 85730-TC; 87040-TC; 87081-TC; 93307-TC; 94760-TC; 94761-TC; 94799-TC; 97110-TC; 97116-TC; 97530-TC; A4223; A6253; G0378; J1650; J2543; J2919; J3373; J3374; J3475; J7040; J7060; J7120